=== PATIENT | male | born 1955 | race Caucasian/White ===

== ENCOUNTER 2024-12-23 13:39 | Outpatient (AMB) | payer MEDICARE, SELFPAY ==
--- NOTE | 2024-12-23 13:44 | A.SPINEOV_ITS ---
Vital Signs 12/23/24 13:51 Height 5 ft 10 in Weight 225 lb BMI 32.3 Intake Visit Reasons: Thorasic Web Intake Note: Mr. Arthur is here today c/o mid back pain and discomfort. Application Development Director Required: No Allergies morphine Allergy (Severe, Verified 12/23/24 13:53) Unknown LATEX Allergy (Unknown, Uncoded 09/11/19 00:00) itching Physical Exam Vital Signs: BMI result Body Mass Index 32.3 Assessment & Plan Assessment & Plan (1) Spinal arachnoid cyst: Code(s): G96.198 - Other disorders of meninges, not elsewhere classified Category: Medical (2) Neuroforaminal stenosis of lumbosacral spine: Code(s): M48.07 - Spinal stenosis, lumbosacral region Category: Medical Plan Dear colleague Thank you for referring Mj Arthur to the office today with a chief complaint of right thoracic pain and right leg pain and numbness. HPI: This 69-year-old active male comes in with a chief complaint of a pain that wraps around the right side of his chest at around T8. The pain started 8 months ago. Inspiration can make the pain worse. He has flare-ups. He takes Tylenol and gabapentin. He denies numbness in that area. No skin abnormalities. He denies neurological symptoms such as bladder or fecal incontinence, spastic gait, balance problems or sensory loss. He does have pain radiating down his right leg with walking and standing that improves with sitting. This pain is associated with numbness in the same distribution as the pain. The pain radiates down his lateral part of his thigh into the lateral part of the calf and ankle. He can develop a drop foot and trips with walking. He had back surgery approximately 17 years ago. He does not remember the procedure. He continues to receive epidural steroid injections in the lumbar spine without significant effect according to the patient. PMH: Hypertension, diabetes, AFib, Benito esophagus, sleep apnea. He underwent a heart ablation, right and left rotator cuff repair, right shoulder replacement and bilateral knee replacement Medications: [] Allergies: Morphine Social history: . 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 Denies smoking Physical Exam: Pleasant male. 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 No myelomalacia. The cord is deviated towards the left side. There is no nerve compression. The MRI of the lumbar spine shows right L5 foraminal stenosis. Impression/Plan: This patient is suffering from a thoracic radiculopathy without compression of the T8 nerve root on MRI. The spinal cord is deviated towards the right side due to an arachnoid cyst. It may be coincidental that the cyst is at the same never as the pain, in the other hand it may be causing the pain. However, without neurological deficits, I would not recommend a resection of the arachnoid cyst that carries the risk of neurological deficits and it may have nothing to do with the described pain. 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 I would like to obtain an CT of the lumbar spine to assess of surgery was performed in the past of this foramen. If not, then I would recommend a right L5 foraminotomy to address his unilateral neurogenic claudication symptoms. The patient will return after the CT is done. Thank you for allowing me to participate in your patients care. total time spent was 50 minutes in counseling ,coordination of plan, personal review of imaging, surgical decision making and subsequent plan Shiraz Coto MD, PhD Spine Fellowship Trained Neurosurgeon Director, [facility] Orders: Orders CT lumbar spine wo IV con Today M48.07 - Spinal stenosis, lumbosacral region, Z98.890 - Other specified postprocedural states Coding Level of Care Code New Pt Level 4 (29696) Diagnoses Spinal arachnoid cyst G96.198 Neuroforaminal stenosis of lumbosacral spine M48.07
[2024-12-23 13:51] VITALS: BMI 32.3
--- OUTSIDE RECORDS SUMMARY | 2024-12-23 14:31 | XMS_ITS | Clinical Summary ---
Author Organization [facility] Address [address] [place] [address] [address] [place] [address] Care Team Providers Care Contract Associate Name Role Phone Prabhjot Mcduffie MD Primary Care Provider Allergies Active Allergy Reactions Criticality Noted Date Comments Diphenhydramine 05/15/2022 Other reaction(s): confusion Latex Rash Low 05/15/2022 Lisinopril Cough 05/15/2022 Morphine Other 07/09/2022 Vomit Medications Blood Glucose Monitoring Suppl (FreeStyle glucose monitoring) kit one - Use device to check blood sugar 7 Active FreeStyle lancets daily. 7 Active glucose blood test strip daily. 7 Active ibuprofen 600 MG tablet 1 tablet in the morning and 1 tablet at noon and 1 tablet in the evening. Active metFORMIN XR (Glucophage-XR) 500 MG 24 hr tablet 1 tablet in the morning. Active amLODIPine (Norvasc) 5 MG tablet 1 tablet in the morning. 7 Active gabapentin (Neurontin) 300 MG capsule 1 capsule in the morning. Active pantoprazole (ProtoNix) 40 MG EC tablet 1 tablet in the morning. Active losartan (Cozaar) 100 MG tablet daily. Active glucose blood (FREESTYLE LITE) test strip USE TO test blood sugar ONCE A DAY directed Active glucose blood test strip one Test blood sugar once a day for 30 days 9 Active Lancet Devices (Autolet) lancing device Intradermal test blood sugar once a day for 30 days 9 Active METOPROLOL TARTRATE PO Metoprolol Tartrate Active Apixaban (ELIQUIS PO) Eliquis Active aspirin 81 MG chewable tablet 1 tablet in the morning. Active acetaminophen (Tylenol) 325 MG tablet Take 650 mg by mouth. 2 Active amLODIPine (Norvasc) 10 MG tablet Take 1 tablet by mouth in the morning. 2 Active atorvastatin (Lipitor) 20 MG tablet Take 20 mg by mouth. 0 Active celecoxib (CeleBREX) 200 MG capsule take 1 capsule by mouth once a day (MEDICATION TO BE STARTED ON 04/20/2022 2 Active Docusate Sodium (DSS) 100 MG capsule Take 1 capsule by mouth in the morning and at bedtime. Active gabapentin (Neurontin) 300 MG capsule Take 300 mg by mouth. 0 Active glipiZIDE (Glucotrol) 5 MG tablet Take 5 mg by mouth. 2 Active hydrALAZINE (Apresoline) 25 MG tablet hydralazine 25 mg tablet Active hydroCHLOROthia zide (HYDRODiuril) 25 MG tablet Take 1 tablet by mouth in the morning. 2 Active Active Problems Problem Noted Date Diagnosed Date Hypertension 05/15/2022 Benito esophagus 05/15/2022 Disorder of left rotator cuff 05/15/2022 Prostate nodule 05/15/2022 Erectile dysfunction 05/15/2022 Obesity 05/15/2022 DUNCAN (nonalcoholic steatohepatitis) 05/15/2022 Combined forms of age-related cataract of both e yes 05/15/2022 Type 2 diabetes mellitus without retinopathy 11/2021 Presbyopia of both eyes 05/15/2022 Social History Tobacco Use Types Packs/Day Years Used Date Smoking Tobacco: Former Cigarettes Q uit: 1996 Tobacco Cessation:Counseling Given: Not Answered Sex and Gender Information Value Date Recorded Sex Assigned at Male 04/09/2022 10:27 AM EDT Legal Sex Male 10:27 AM EDT Gender Identity Male 07/06/2022 8:32 AM EST Sexual Orientation Straight 07/06/2022 8: 34 AM EST Occupation Industry Job Start Date Job End Date [employer] Not on file Not on file Not on file Last Filed Vital Signs Vital Sign Reading Time Taken Comments Blood Pressure 134/72 11/18/2023 3:50 PM EDT Pulse - - Temperature 36.2 C (97.2 F) 11/18/2023 3:50 PM EDT Respiratory Rate - - Oxygen Saturation - - Inhaled Oxygen Concentration - - Weight - - Height - - Body Mass Index - - Plan of Treatment Health Maintenance Due Date Last Done Comments CT Colonography 1955 Depression Screening 1955 Diabetes: Hemoglobin A1C 1955 FIT DNA/Cologuard 1955 FIT 1955 FOBT 1955 Lipid Panel 1955 SDOH Screening 1955 Sigmoidoscopy 1955 Diabetes: Foot Exam 1965 Alcohol/Substance Use Screening 1967 Hepatitis C Screening 1973 Diabetes: Urine Protein Screening 1974 Zoster Vaccines (1 of 2) 2005 RSV Patients and Patients Aged 60 years or older (1 - Risk 60-74 years 1-dose series) 2015 Hepatitis A Vaccines (2 of 2 - Risk 2-dose series) 08/02/2016 01/31/2016 COVID-19 Vaccine ( season) 2024 06/16/2022, 04/21/2021, 09/07/2020, Additional history exists Influenza Vaccine (#1) 2025 , 03/13/2023, 03/13/2023, Additional history exists Tobacco Screening 04/17/2025 04/17/2024 Colonoscopy 08/16/2025 08/17/2015, 05/22/2005 Colorectal Cancer Screening 08/16/2025 Eye Exam 11/17/2025 11/18/2023, 11/08, 11/18/2023, Additional history exists DTaP/Tdap/Td Vaccines (3 - Td or Tdap) 09/05/2030 09/05/2020, 02/15/2012, 11/23/2004 Hepatitis B Vaccines Completed 07/06/2020, 03/09/2020, 02/03/2020, Additional history exists Pneumococcal Vaccine: 50+ Years Completed 03/25/2024, 07/28/2021, 06/24/2018 HIB Vaccines Aged Out No longer eligi ble based on patient's age to complete this topic HPV Vaccines Aged Out No longer eligi ble based on patient's age to complete this topic IPV Vaccines Aged Out No longer eligi ble based on patient's age to complete this topic Meningococcal B Vaccine Aged Out No l onger eligible based on patient's age to complete this topic Meningococcal Vaccine Aged Out No mary jo john eligible based on patient's age to complete this topic RSV under 20 months Aged Out No longe r eligible based on patient's age to complete this topic Rotavirus Vaccines Aged Out No longer eligible based on patient's age to complete this topic Procedures Procedure Name Priority Date/Time Associated Diagnosis Comments COLONOSCOPY Routine 08/17/2015 12:00 AM EST from Last 3 Months or Most Recently Relevant to Health Maintenance Results * COLONOSCOPY: [facility] (08/17/2015 12:00 AM EST) Anatomical Region Laterality Modality Endoscopy 08/17/2015 Narrative 08/17/2015 12:00 AM EST Refer to Fovea for result details Legacy Procedure: COLONOSCOPY: [facility] Procedure Note Provider, Bella, - 10/04/2022 Refer to Fovea for result details Legacy Procedure: COLONOSCOPY: [facility] Historical Provider ENDOSCOPY PROCEDURE ORDER PORTIA Final Result from Last 3 Months or Most Recently Relevant to Health Maintenance Insurance [employer] Member Subscriber Plan / Payer (Ef fective 2023-Present) Name:Mj Arthur Relation to Subscriber:Self Name:Mj Arthur Payer ID:Not on file Group ID:Not on file Type:Not on file Address: [address] [id number] [employer] [place] [phone] Care Teams Contract Associate Relationship Specialty Start Date End Date Prabhjot Mcduffie MD PCP - General Internal Medicine 05/28/22
--- OUTSIDE RECORDS SUMMARY | 2024-12-23 14:31 | XMS_ITS | Clinical Summary ---
Author Organization [facility] Address [address] [place] [phone] Phone Care Team Providers Care Sustainability Engineer Name Role Phone Horacio Mcduffie MD Primary Care Provider [phone] Allergies Active Allergy Reactions Criticality Noted Date Comments Diphenhydramine Hcl Other 07/05/2017 Confusion Latex Rash 06/24/2017 Lisinopril Cough 06/24/2017 Morphine Nausea And Vomiting 01/25/2022 Medications aluminum-magnesiu m hydroxide-simethi cone (MAALOX) 200-200-20 mg/5 mL suspension Take 15 mL by mouth 4 times daily as needed (heartburn, castro's esopahgus). 10/02/19 24 Active apixaban (ELIQUIS) 5 mg tablet Take 1 Tablet by mouth 2 times daily. Active famotidine (PEPCID) 20 mg tablet Take 1 Tablet by mouth 2 times daily as needed for Heartburn. 10/02/19 24 Active melatonin 10 mg tablet Take by mouth. Active methocarbamoL (ROBAXIN) 750 mg tablet TAKE ONE TABLET BY MOUTH THREE TIMES A DAY DIRECTED FOR 7 DAYS 08/23/19 24 Active lancets 30 gauge misc 1 Stick by Does not apply route daily. 09/12/19 24 Active blood sugar diagnostic (OneTouch Verio test strips) test strip Apply 1 strip topically to test fasting blood sugar once daily 09/12/19 24 Active blood-glucose meter (ONETOUCH VERIO METER MISC) 1 Kit by Does not apply route daily. Use to test fsbs once a day 08/15/19 23 Active blood-glucose meter kit Use as directed to test fsbs once daily. 02/18/20 19 Active fluticasone propionate (FLONASE) 50 mcg/actuation nasal sprayIndications: RUQ abdominal pain,Subacute cough Administer 2 sprays into each nostril 1 (one) time each day. Shake gently. Before first use, prime pump. After use, clean tip and replace cap. 16 g 5 07/01/19 25 2025 Active albuterol HFA (ProAir HFA) 90 mcg/actuation inhalerIndication s:RUQ abdominal pain,Subacute cough Inhale 2 puffs by mouth every 4 (four) hours if needed for wheezing or shortness of breath. 18 g 11 07/01/19 25 2025 Active losartan (COZAAR) 100 mg tablet TAKE ONE TABLET BY MOUTH EVERY DAY 90 tablet 1 07/06/19 25 Active gabapentin (NEURONTIN) 600 mg tablet Take 1 tablet (600 mg total) by mouth 2 (two) times a day. 180 each 08/05/19 25 2024 Active glipiZIDE (GLUCOTROL) 5 mg tablet TAKE ONE TABLET BY MOUTH EVERY DAY 90 tablet 1 09/12/19 25 Active amLODIPine (NORVASC) 10 mg tablet Take 1 tablet (10 mg total) by mouth 1 (one) time each day. 90 tablet 1 09/12/19 25 Active metFORMIN XR (GLUCOPHAGE-XR) 500 mg 24 hr tablet Take 4 tablets (2,000 mg total) by mouth 1 (one) time each day. 360 tablet 10/03/19 25 Active atorvastatin (LIPITOR) 20 mg tablet TAKE ONE TABLET BY MOUTH EVERY DAY 90 tablet 1 12/02/19 25 Active spironolactone (ALDACTONE) 25 mg tablet TAKE ONE TABLET BY MOUTH EVERY DAY 90 tablet 1 12/02/19 25 Active metoprolol succinate (TOPROL-XL) 50 mg 24 hr tablet TAKE TWO TABLETS BY MOUTH EVERY DAY 180 tablet 12/02/19 25 Active hydroCHLOROthiazi de (HYDRODIURIL) 25 mg tabletIndications :Primary hypertension TAKE ONE TABLET BY MOUTH EVERY DAY 90 tablet 1 12/02/19 25 Active pantoprazole (PROTONIX) 40 mg EC tablet TAKE ONE TABLET BY MOUTH TWICE A DAY ; DO NOT CRUSH, CHEW, OR SPLIT 180 tablet 12/05/19 25 Active benzonatate (TESSALON) 100 mg capsule TAKE ONE CAPSULE BY MOUTH THREE TIMES A DAY NEEDED FOR COUGH ; DO NOT CRUSH OR CHEW 20 capsule 12/22/19 25 Active ondansetron ODT (ZOFRAN-ODT) 4 mg disintegrating tabletIndications :Nausea Dissolve 1 tablet (4 mg total) on top of the tongue every 8 (eight) hours if needed for nausea or vomiting. 30 tablet 2 12/23/19 25 Active pantoprazole (PROTONIX) 40 mg EC tablet TAKE ONE TABLET BY MOUTH TWICE A DAY ; DO NOT CRUSH, CHEW, OR SPLIT 180 tablet 09/03/19 25 2024 Discontinued atorvastatin (LIPITOR) 20 mg tablet TAKE ONE TABLET BY MOUTH EVERY DAY 90 tablet 09/09/19 25 2024 Discontinued spironolactone (ALDACTONE) 25 mg tablet TAKE ONE TABLET BY MOUTH EVERY DAY 90 tablet 09/09/19 25 2024 Discontinued metoprolol succinate (TOPROL-XL) 50 mg 24 hr tablet TAKE TWO TABLETS BY MOUTH EVERY DAY 180 tablet 09/09/19 25 2024 Discontinued hydroCHLOROthiazi de (HYDRODIURIL) 25 mg tabletIndications :Primary hypertension Take 2 tablets (50 mg total) by mouth 1 (one) time each day. 180 each 09/11/19 25 2024 Discontinued benzonatate (TESSALON) 100 mg capsule Take 1 capsule (100 mg total) by mouth 3 (three) times a day if needed for cough. Do not crush or chew. 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), type 2 with neurological complications (CMS/HCC V24, CMS/HCC V28) 05/04/2024 Hypertension 05/04/2024 Lumbar herniated disc 05/04/2024 Overview (05/04/2024): left sided S/P TKR (total knee replacement) 05/20/2022 Overview (05/04/2024): right Paroxysmal atrial fibrillation (CMS/HCC V24, CMS /HCC V28) 05/04/2020 Overview (05/04/2024): [place] Hypercholesteremia 04/07/2020 Obstructive sleep apnea 07/15/2018 Overview (05/04/2024): SMS Home Polysomnogram: Date 07/12/2018; AHI 61, Unclassified apneas 0; Obstructive apneas 132; Central apneas 1; Mixed apneas 0; hypopneas 122; average oxygen saturation 90% (lowest 77% with saturations <88% for 5% or more of study) RBMG Polysomnogram treatment study. Date 08/24/2018. SE 76 % SM 80 %; spent 27 % of the study in REM. On CPAP @ 10; RDI 2 (AHI 1), Central apneas 0; Obstructive apneas 0; Mixed apneas 0; hypopneas 1; RERAs 1; and, average oxygen saturation was 91%. For the entire study, PLMs ~7. - Obstructive Sleep Apnea - severe; mostly obstructive apneas and hypopneas; with sleep related hypoventilation by 2019 home polysomnogram. - 08/24/2018 Pre-study ESS 9. 3/4 RLS symptoms. - CPAP @ 10 corrective. 08/30. Inspire Obesity (BMI 30.0-34.9) 06/24/2018 DM (diabetes mellitus), type 2 with peripheral vascular complications ([facility] V24, [facility] V28) 07/05/2017 DM (diabetes mellitus), type 2 with renal complications ([facility] V24, [facility] V28) 07/05/2017 Erectile dysfunction 07/05/2017 Fatty liver 07/05/2017 Microalbuminuria 07/05/2017 DUNCAN (nonalcoholic steatohepatitis) 07/05/2017 Renal cyst 07/05/2017 Overview (05/04/2024): Left [address] 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 Polyp of colon 06/24/2017 Encounters Date Type Department Care Team Description 12/15/2024 7:39 AM EDT Anesthesia Event [facility] Endoscopy [address] [place] [phone] Marco Humphrey MD 12/15/2024 6:47 AM EDT - 12/15/2024 11:59 PM EDT Hospital Encounter [facility] Endoscopy [address] [place] [phone] Emile Kirby MD Burton, Heather, CRNA Gomes, Sheldon B, MD Castro's esophagus without dysplasia Discharge Disposition: Home or Self Care 12/08/2024 9:00 AM EDT Office Visit Pulmonology [facility] [address] [phone] Amanda Hemphill MD Lung nodule (Primary Dx) 12/04/2024 1:21 PM EDT - 12/04/2024 11:59 PM EDT Hospital Encounter [facility] CT Scan [address] [place] [phone] Lung nodule Discharge Disposition: Home or Self Care 12/01/2024 Telephone Adult Medicine [facility] [address] [place] [phone] Horacio Mcduffie MD Referral 11/26/2024 Telephone Pulmonology [facility] [address] [phone] Zaina Mendez MS 11/25/2024 9:00 AM EDT Office Visit Adult Medicine [facility] [address] [place] [phone] Annalise Carvajal NP Lumbar herniated disc (Primary Dx) 11/25/2024 Telephone Adult Medicine [facility] [address] [place] [address] Horacio Mcduffie MD Forms/questionnaires ([facility] placard form/) 11/19/2024 4:00 PM EDT Office Visit Nephrology [address] [phone] Maximiliano Hua MD Hypertension, unspecified type (Primary Dx); DM (diabetes mellitus), type 2 with peripheral vascular complications (CMS/HCC V24, CMS/HCC V28); Obstructive sleep apnea 11/18/2024 Telephone Gastroenterology [facility] 175 [facility] 175 [facility] [address] [place] [address] Sandra Saleem LPN Anticoagulation (Upper endoscopy on 12/15/[address] Kirby) 11/17/2024 Telephone Adult [facility] [address] [place] [phone] Horacio Mcduffie MD Referral (Nephrology) 10/28/2024 Telephone Adult [facility] [address] [place] [phone] Horacio Mcduffie MD Referral 10/06/2024 1:30 PM EDT Office Visit Pulmonology [facility] 299 [facility] [address] [place] [address] Amanda Hemphill MD Lung nodule (Primary Dx); Other emphysema (CMS/HCC V24, CMS/HCC V28); SOB (shortness of breath) 10/05/2024 Telephone Pulmonology [facility] 299 [facility] [address] [place] [address] Zaina Mendez MS 09/30/2024 8:15 AM EDT - 09/30/2024 10:15 AM EDT Surgery [address] [phone] Amanda Hemphill MD ROBOTIC ASSISTED BRONCHOSCOPY W. FNA, TBBX, BRUSH, BAL [42464 (CPT )] 09/30/2024 8:15 AM EDT Anesthesia Event [address] [phone] Gita Silvestre MD 09/30/2024 5:36 AM EDT - 09/30/2024 11:35 AM EDT Hospital Encounter [address] [phone] Amanda Hemphill MD Pain; Lung nodule Discharge Disposition: Home or Self Care from Last 3 Months Immunizations Name Administration Dates Next Due Hepatitis B (Ngkgzfu-G-Gomab , Recombivax HB-Adult) 19yo and older 07/06/2020,03/09/2020,02/03/2020 Hepatitis B (Recombivax HB-D ialysis) 18yo and older 03/05/2016 Influenza Quadravalent, MDCK , 0.5ml, preservative free (Flucelvax) 6mo and older 06/15/2019 Influenza trivalent, 0.5mL ( Fluad) 65yo and older 03/25/2024,03/13/2023,04/10/2022,04/07 Influenza trivalent, 0.5mL, preservative free (Fluarix; FluLaval; Fluzone) ages 6mo and older (Afluria) 3 years and older 02/23/2016 Pfizer (ages 12 & older) Biv alent, COVID-19 06/16/2022 Pfizer SARS-CoV-2 COVID-19, mRNA, LNP-S, preservative free 04/21/2021 Pneumococcal conjugate 13 va lent (Prevnar 13, PCV13) 2mo and older 07/28/2021 Pneumococcal conjugate 20 va lent (Prevnar 20, PCV 20) 2mo and older 03/25/2024 Pneumococcal polysaccharide 23 valent (Pneumovax 23) 2yo and older 06/24/2018 Tdap Tetanus diptheria acell ular pertussis (Boostrix; Adacel) 7yo and older 09/05/2020,02/15/2012 Surgical History Surgery Date Site/Laterality Comments ROTATOR CUFF REPAIR 11/2014 PROCEDURE: HISTORICAL ROTATOR CUFF REPAIR; COMMENT: left and right KNEE SURGERY PROCEDURE: HISTORICAL KNEE SURGERY; COMMENT: left meniscectomy OTHER SURGICAL HISTORY PROCEDURE: ---- OTHER ----; COMMENT: historical ?esophageal fundoplication for barretts esophagus COLONOSCOPY 08/17/2015 PROCEDURE: HISTORICAL COLONOSCOPY; COMMENT: Diverticulosis. Repeat 10 yrs UPPER GASTROINTESTINAL ENDOSCOPY PROCEDURE: UPPER GI ENDOSCOPY/EXAM; COMMENT: 2008, 2011, 2013 Castro's Esophagus COLONOSCOPY 05/21/2005 PROCEDURE: HISTORICAL COLONOSCOPY OTHER SURGICAL HISTORY 06/2020 PROCEDURE: ---- OTHER ----; COMMENT: right L5/S1 foraminal decompression via full facetectomy TOTAL KNEE ARTHROPLASTY 05/2023 Bilateral PROCEDURE: HISTORICAL TOTAL KNEE REPLACE ESOPHAGOGASTRODUODENOSCOPY JOINT REPLACEMENT ABLATION OF DYSRHYTHMIC FOCUS for afib per pt OTHER SURGICAL HISTORY Right Inspire implant for sleep apnea LUMBAR DISC SURGERY L4-5 Medical History Medical History Date Comments Hypertension DX:Hypertension Lumbar herniated disc DX:Lumbar herniated disc; COMMENT: left sided History of alcohol abuse 06/24/2017 DX:Hist ory of alcohol abuse; COMMENT: Quit 1994 Erectile dysfunction 07/05/2017 DX:Erectile dysfunction Microalbuminuria 07/05/2017 DX:Microalbumin uria Peripheral neuropathy 07/05/2017 DX:Periphe ral neuropathy DM (diabetes mellitus), type 2 with neurological complications (CMS/HCC V24, CMS/HCC V28) DX:DM (diabetes mellitus), t ype 2 with neurological complications (HCC) Insomnia 07/05/2017 DX:Insomnia DUNCAN (nonalcoholic steatohepatitis) 07/05/2017 DX:DUNCAN (nonalcoholic steatohepatitis) Prostate nodule 07/05/2017 DX:Prostate nodu le DM (diabetes mellitus), type 2 with peripheral vascular complications (CMS/HCC V24, CMS/HCC V28) 07/05/2017 DX:DM (diabetes mellitus), type 2 with peripheral vascular complications (HCC) Fatty liver 07/05/2017 DX:Fatty liver Renal cyst 07/05/2017 DX:Renal cyst; C OMMENT: Left [address] Diverticulosis 07/05/2017 DX:Diverticulosi s Osteoarthritis 07/05/2017 DX:Osteoarthriti s; COMMENT: Spine, shoulder, knee Hearing loss 07/05/2017 DX:Hearing loss Hiatal hernia 07/05/2017 DX:Hiatal hernia Polyp of colon 06/24/2017 DX:Polyp of colo n 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 DX: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), type 2 with renal complications (CMS/HCC V24, CMS/HCC V28) 07/05/2017 DX:DM (diabetes mellitus), t ype 2 with renal complications (HCC) Castro's esophagus DX:Castro's esophagus ANISHA (obstructive sleep apnea) DX :ANISHA (obstructive sleep apnea) H/O cardiac radiofrequency ablation DX:H/O cardiac radiofrequency ablation; COMMENT: feb 2021 Hyperlipidemia DX:Hyperlipidemi a Hiatal hernia DX:Hiatal hernia Arrhythmia Full dentures Need for prophylactic antibiotic R/t joint replacement Family History Medical History Relation Name Comments Alcohol abuse Brother 1 Other: afib Brother 2 No Known Problems Daughter 1 No Known Problems Daughter 2 Diabetes Father CHF, alcoholism Lung cancer Mother smoker Alcohol abuse Sister 1 uterine cancer , breast cancer Alcohol abuse Sister 2 uterine cancer Alcohol abuse Sister 3 uterine cancer No Known Problems Son 1 No Known Problems Son 2 Relation Name Status Comments Brother 1 Alive Brother 2 Alive Daughter 1 Alive Daughter 2 Alive Father Mother Sister 1 Alive Sister 2 Sister 3 Son 1 Alive Son 2 Alive Social History Tobacco Use Types Packs/Day Years Used Date Smoking Tobacco: Former Cigarettes Q uit: 06/24/1994 Smokeless Tobacco: Never Tobacco Cessation:Counseling Given: Not Answered Alcohol Use Standard Drinks/Week Comments No 0 (1 standard drink = 0.6 oz pur e alcohol) Interpersonal Safety Answer Date Record ed Physical Abuse 12/15/2024 Verbal Abuse 12/15/2024 Sex and Gender Information Value Date Recorded Sex Assigned at Male 07/27/2024 2:14 PM EST Legal Sex Male 2:06 AM EST Gender Identity Male 07/27/2024 2:14 PM EST Sexual Orientation Straight 08/21/2024 12 :07 PM EDT Obstetrics History Last Filed Vital Signs Vital Sign Reading Time Taken Comments Blood Pressure 105/71 12/15/2024 8:16 AM EDT Pulse 49 12/15/2024 8:16 AM EDT Temperature 36.3 C (97.4 F) 12/15/2024 7:56 AM EDT Respiratory Rate 18 12/15/2024 8:16 AM EDT Oxygen Saturation 99% 12/15/2024 8:16 AM EDT Inhaled Oxygen Concentration - - Weight 104 kg (230 lb) 12/15/2024 7:04 AM EDT Height 177.8 cm (5' 10 ) 12/15/2024 7:04 AM EDT Body Mass Index 33 12/15/2024 7:04 AM EDT Plan of Treatment Upcoming Encounters Date Type Department Care Team (Late st Contact Info) Description 02/25/2025 3:00 PM EDT Office Visit Adult Medicine - [address] [phone] Annalise Carvajal NP [address] [place] [address] Health Maintenance Due Date Last Done Comments Diabetes: Annual Retina Eye Exam 1965 Zoster Vaccines (1 of 2) 1974 RSV Immunization Adult Patients (1 - Risk 60-74 years 1-dose series) 2015 Abdominal Aortic Aneurysm (AAA) Screen 05/19/2022 Depression Screening 05/19/2022 Medicare Annual Wellness Visit 05/19/2022 Social Influencers of Health Screening 05/19/2022 COVID-19 Vaccine ( season) 2024 06/16/2022, 04/21/2021, 09/07/2020, Additional history exists Diabetes: Blood Sugar Control Test (HGBA1C) 09/10/2024 03/12/2024, 03/12/2024 Influenza Vaccine (#1) 2025 , 03/13/2023, 06/16/2022, Additional history exists Diabetes: Annual Urine Albumin-Creatinine Ratio (uACR) 03/12/2025 03/12/2024 Diabetes: Annual Foot Exam 03/25/2025 03/25/2024 Colorectal Cancer Screening: Colonoscopy 08/16/2025 08/17/2015, 08/17/2015 Diabetes: Annual GFR (Glomerular Filtration Rate) 09/24/2025 09/24/2024, 07/01/2024, 03/12/2024, Additional history exists Hypertension/CHF/CAD Annual BMP Blood Test 09/24/2025 09/24/2024, 07/01/2024, 03/12/2024, Additional history exists Falls Risk Assessment 12/15/2025 12/15/2024 Cholesterol Screening (Lipid Panel) 03/12/2029 03/12/2024, 03/12/2024 DTaP,Tdap,and Td Vaccines (3 - Td or Tdap) 09/05/2030 09/05/2020, 02/15/2012 Hepatitis B Vaccines Completed 07/06/2020, 03/09/2020, 02/03/2020, Additional history exists Pneumococcal Vaccine: 50+ Years Completed 03/25/2024, 07/28/2021, 06/24/2018 Hepatitis C Screening Completed 07/15/2024, 020 HIB Vaccines Aged Out No longer eligi ble based on patient's age to complete this topic HPV Vaccines Aged Out No longer eligi ble based on patient's age to complete this topic Hepatitis A Vaccines Aged Out No long er eligible based on patient's age to complete this topic IPV Vaccines Aged Out No longer eligi ble based on patient's age to complete this topic MMR Vaccines Aged Out No longer eligi ble based on patient's age to complete this topic Meningococcal ACWY Vaccine Aged Out N o longer eligible based on patient's age to complete this topic Meningococcal B Vaccine Aged Out No l onger eligible based on patient's age to complete this topic RSV Immunization Patients Under 20 months Aged Out No longer eligible based on patient's age to complete this topic Varicella Vaccines Aged Out No longer eligible based on patient's age to complete this topic Medical Devices Implanted Type Area Windsmith Device Identifier Shelf Expiration Date Model / Serial / Lot Marker Cobra Chrislock - Sn/A - [id number] Implanted:Qt y: 1 on 09/30/2024 by Amadna Hemphill MD at [facility] Imaging Implants Left: Lung [employer]IEN SUPER[employer] [id number] 08/06/2028 [id number] / N/A / [id number] Description:LLL Implants Implants Right: Chest Wall inspired sleep apnea device Description:Implanted device for sleep apnea Joints Knee Joints Knee Bilateral: Knee Joints Shoulder Joints Shoulder Right: Shoulder Procedures Procedure Name Priority Date/Time Associated Diagnosis Comments EGD Routine 12/15/2024 7:55 AM EDT Castro's esophagus without dysplasia TISSUE EXAM Routine 12/15/2024 7:48 AM EDT Castro's esophagus without dysplasia CT CHEST WO CONTRAST Routine 12/04/2024 1:43 PM EDT Lung nodule MR THORACIC SPINE WO AND W CONTRAST Routine 12/01/2024 8:51 AM EDT XR CHEST 1 VIEW STAT 09/30/2024 10:47 AM EDT POCT GLUCOSE BLOOD Routine 09/30/2024 10:45 AM EDT OXYGEN THERAPY, ADULT Routine 09/30/2024 10:03 AM EDT XR FLUORO UP TO 1 HOUR (STATISTICS)(NO REPORT) Routine 09/30/2024 9:38 AM EDT Pain TISSUE EXAM Routine 09/30/2024 8:38 AM EDT Lung nodule NON-GYNECOLOGIC CYTOLOGY Routine 09/30/2024 8:34 AM EDT Lung nodule WY BRONCHOSCOPY INCL FLUROSCOPIC GUIDANCE W PLCMNT FIDUCIAL MARKER SGL/MULT 09/30/2024 8:03 AM EDT Lung nodule Case Notes Inspire implant right sideROBOTIC ASSISTED BRONCHOSCOPY W. FNA, TBBX, BRUSH, BAL [03411 (CPT )] Bilateral LENGTH OF PROCEDURE 90 MINUTES RADIAL EBUS [09989 (CPT )] Bilateral LINEAR EBUS TBNA W. FLUOROSCOPY [81824 (CPT )] Bilateral FIDUCIAL MARKER PLACEMENT [47901 (CPT )] WY BRONCHOSCOPY RIGID/FLEXIBLE W/EBUS >=3 MEDIASTINAL/HILAR LYMPH NODES 09/30/2024 8:03 AM EDT Lung nodule Case Notes Inspire implant right sideROBOTIC ASSISTED BRONCHOSCOPY W. FNA, TBBX, BRUSH, BAL [42587 (CPT )] Bilateral LENGTH OF PROCEDURE 90 MINUTES RADIAL EBUS [21742 (CPT )] Bilateral LINEAR EBUS TBNA W. FLUOROSCOPY [92822 (CPT )] Bilateral FIDUCIAL MARKER PLACEMENT [87316 (CPT )] WY BRONCHOSCOPY RIGID/FLEXIBLE W/TRANSBRONCHIAL LUNG BIOPSY(S) SINGLE LOBE 09/30/2024 8:03 AM EDT Lung nodule Case Notes Inspire implant right sideROBOTIC ASSISTED BRONCHOSCOPY W. FNA, TBBX, BRUSH, BAL [42496 (CPT )] Bilateral LENGTH OF PROCEDURE 90 MINUTES RADIAL EBUS [26591 (CPT )] Bilateral LINEAR EBUS TBNA W. FLUOROSCOPY [11249 (CPT )] Bilateral FIDUCIAL MARKER PLACEMENT [10829 (CPT )] WY BRONCHOSCOPY RIGID/FLEXIBLE COMPUTER ASSISTED IMAGE GUIDED NAVIGATION 09/30/2024 8:03 AM EDT Lung nodule Case Notes Inspire implant right sideROBOTIC ASSISTED BRONCHOSCOPY W. FNA, TBBX, BRUSH, BAL [89059 (CPT )] Bilateral LENGTH OF PROCEDURE 90 MINUTES RADIAL EBUS [07938 (CPT )] Bilateral LINEAR EBUS TBNA W. FLUOROSCOPY [04834 (CPT )] Bilateral FIDUCIAL MARKER PLACEMENT [94014 (CPT )] POCT GLUCOSE BLOOD Routine 09/30/2024 6: 33 AM EDT CBC WITH AUTO DIFFERENTIAL Routine 09/24/2024 9:27 AM EDT Lung nodule Other emphysema (CMS/HCC V24, CMS/HCC V28) CBC AND DIFFERENTIAL Routine 09/24/2024 9:27 AM EDT Lung nodule Other emphysema (CMS/HCC V24, CMS/HCC V28) BASIC METABOLIC PANEL Routine 09/24/2024 9:27 AM EDT Lung nodule Other emphysema (CMS/HCC V24, CMS/HCC V28) PROTHROMBIN TIME WITH INR Routine 09/24/2024 9:27 AM EDT Lung nodule Other emphysema (CMS/HCC V24, CMS/HCC V28) SOB (shortness of breath) HEPATITIS C ANTIBODY Routine 07/15/2024 9:45 AM EST Subacute cough RUQ abdominal pain Intercostal pain Transaminitis DIABETES FOOT EXAM Routine 03/25/2024 URINE ALBUMIN CREATININE RATIO Routine 03/12/2024 HEMOGLOBIN A1C Routine 03/12/2024 LIPID PANEL Routine 03/12/2024 COLONOSCOPY Routine 08/17/2015 from Last 3 Months or Most Recently Relevant to Health Maintenance Results * EGD Anesthesia - MAC; [facility] ENDOSCOPY (12/15/2024 7:55 AM EDT) Anatomical Region Laterality Modality Endoscopy 12/15/2024 7:40 AM EDT Impressions 12/15/2024 7:56 AM EDT - Normal examined duodenum. - Normal stomach. 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 Biopsied. Recommendation: - Discharge patient to home. - Await pathology results. - Return to GI clinic after studies are complete. Narrative 12/15/2024 7:56 AM EDT [facility] GI Patient Name: Micaela Choudhury Procedure Date: 12/15/2024 7:40 AM Date of : 1955 Age: 69 Gender: Male Note Status: Finalized Attending MD: Emile Kirby MD, Procedure Date No Time: 12/15/2024 Procedure: Upper GI endoscopy Indications: Surveillance for malignancy due to personal history of Castro's esophagus, Castro's low grade dysplasia Providers: Emile Kirby MD Referring MD: Emile Kirby MD Medicines: Monitored Anesthesia Care Complications: No immediate complications. Estimated blood loss: Minimal. Estimated Blood Loss: Estimated blood loss was minimal. Procedure: Pre-Anesthesia Assessment: - Prior to the procedure, a History and Physical was performed, and patient medications and allergies were reviewed. The patient is competent. The risks and benefits of the procedure and the sedation options and risks were discussed with the patient. All questions were answered and informed consent was obtained. Patient identification and proposed procedure were verified by the physician, the nurse, the fishing captain and the quality assurance qa lab technician in the pre-procedure area in the endoscopy suite. Mental Status Examination: alert and oriented. Airway Examination: normal oropharyngeal airway and neck mobility. Respiratory Examination: clear to auscultation. CV Examination: normal. Prophylactic Antibiotics: The patient does not require prophylactic antibiotics. Prior Anticoagulants: The patient has taken Eliquis (apixaban), last dose was 3 days prior to procedure. ASA Grade Assessment: III - A patient with severe systemic disease. After reviewing the risks and benefits, the patient was deemed in satisfactory condition to undergo the procedure. The anesthesia plan was to use monitored anesthesia care (MAC). Immediately prior to administration of medications, the patient was re-assessed for adequacy to receive sedatives. The heart rate, respiratory rate, oxygen saturations, blood pressure, adequacy of pulmonary ventilation, and response to care were monitored throughout the procedure. The physical status of the patient was re-assessed after the procedure. After obtaining informed consent, the endoscope was passed under direct vision. Throughout the procedure, the patient's blood pressure, pulse, and oxygen saturations were monitored continuously. The Endoscope was introduced through the mouth, and advanced to the second part of duodenum. The upper GI endoscopy was accomplished without difficulty. The patient tolerated the procedure well. Findings: The examined duodenum was normal. The stomach was normal. The esophagus and gastroesophageal junction were examined with white light and narrow band imaging (NBI). There were esophageal mucosal changes secondary to established short-segment Castro's disease. These changes involved the mucosa at the upper extent of the gastric folds (38 cm from the incisors) extending to the Z-line (37 cm from the incisors). One tongue of salmon-colored mucosa was present from 37 to 38 cm. The maximum longitudinal extent of these esophageal mucosal changes was 1 cm in length. Mucosa was biopsied with a cold forceps for histology. One specimen bottle was sent to pathology. Estimated blood loss was minimal. 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 All rights reserved. The codes documented in this report are preliminary and upon geneticist review may be revised to meet current compliance requirements. Emile Kirby MD 12/15/2024 7:56:25 AM This report has been signed electronically.Emile Kirby MD Number of Addenda: 0 Note Initiated On: 12/15/2024 7:40 AM Scope In: Scope Out: Endoscopy Department at [facility] - [address] [place] [id number] Procedure Note Emile Kirby MD - 12/15/2024 [facility] GI Patient Name: Micaela Choudhury Procedure Date: 12/15/2024 7:40 AM Date of : 1955 Age: 69 Gender: Male Note Status: Finalized Attending MD: Emile Kirby MD, Procedure Date No Time: 12/15/2024 Procedure: Upper GI endoscopy Indications: Surveillance for malignancy due to personal historyof Castro's esophagus, Castro's low gradedysplasia Providers: Emile Kirby MD Referring MD: Emile Kirby MD Medicines: Monitored Anesthesia Care Complications: No immediate complications. Estimated blood loss: Minimal. Estimated Blood Loss: Estimated blood loss was minimal. Procedure: Pre-Anesthesia Assessment: - Prior to the procedure, a History and Physicalwas performed, and patient medications and allergieswere reviewed. The patient is competent. The risks and benefits of the procedure and the sedation optionsand risks were discussed with the patient. Allquestions were answered and informed consent was obtained. Patient identification and proposed procedure were verified by the physician, the nurse, theanesthetist and the quality assurance qa lab technician in the pre-procedure area in the endoscopy suite. Mental Status Examination: alertand oriented. Airway Examination: normal oropharyngeal airway and neck mobility. Respiratory Examination: clear to auscultation. CV Examination: normal. Prophylactic Antibiotics: The patient does notrequire prophylactic antibiotics. Prior Anticoagulants: The patient has taken Eliquis (apixaban), last dose was3 days prior to procedure. ASA Grade Assessment: III- A patient with severe systemic disease. Afterreviewing the risks and benefits, the patient was deemed in satisfactory condition to undergo the procedure.The anesthesia plan was to use monitored anesthesiacare (MAC). Immediately prior to administration of medications, the patient was re-assessed foradequacy to receive sedatives. The heart rate, respiratory rate, oxygen saturations, blood pressure, adequacyof pulmonary ventilation, and response to care were monitored throughout the procedure. The physical status of the patient was re-assessed after the procedure. After obtaining informed consent, the endoscope was passed under direct vision. Throughout theprocedure, the patient's blood pressure, pulse, and oxygen saturations were monitored continuously. TheEndoscope was introduced through the mouth, and advanced tothe second part of duodenum. The upper GI endoscopy was accomplished without difficulty. The patienttolerated the procedure well. Findings: The examined duodenum was normal. The stomach was normal. The esophagus and gastroesophageal junction were examined with white light and narrow band imaging (NBI). There were esophageal mucosal changessecondary to established short-segment Castro's disease.These changes involved the mucosa at the upper extent ofthe gastric folds (38 cm from the incisors) extendingto the Z-line (37 cm from the incisors). One tongue of salmon-colored mucosa was present from 37 to 38 cm. The maximum longitudinal extent of these esophageal mucosal changes was 1 cm in length. Mucosa was biopsied with a cold forceps for histology. One specimen bottle was sent to pathology. Estimatedblood loss was minimal. 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 All rights reserved. The codes documented in this report are preliminary and upon geneticist reviewmay be revised to meet current compliance requirements. Emile Kirby MD 12/15/2024 7:56:25 AM This report has been signed electronically.Emile Kirby MD Number of Addenda: 0 Note Initiated On: 12/15/2024 7:40 AM Scope In: Scope Out: Endoscopy Department at [address] [id number] IMPRESSION: - Normal examined duodenum. - Normal stomach. - Esophageal mucosal changes secondary toestablished short-segment Castro's disease. Biopsied. Recommendation: - Discharge patient to home. - Await pathology results. - Return to GI clinic after studies are complete. us Emile Kirby MD GI~PROCEDURE ORDERABLES Fin al Result * Tissue exam (12/15/2024 7:48 AM EDT) Only the most recent of2 resultswithin the time period is included. Final Diagnosis Lower esophagus, biopsy: - Esophageal squamous mucosa with scattered intraepithelial eosinophils (maximum of three intraepithelial eosinophils in a high-power field and reactive epithelial changes including spongiosis and focal basal hyperplasia. - Gastric cardiac type mucosa with patchy chronic inflammation. - No intestinal metaplasia and no dysplasia identified. 12/16/2024 11:20 AM EDT [facility] Gross Description A. Esophagus, lower biopsies: Labeled esophagus, lower . Received in formalin are six irregular pink-white to red mucosal tissue fragments, ranging from 0.2 cm to 0.5 cm in greatest dimension, which are wrapped in paper and submitted in toto in one cassette, six pieces, multiple levels on one slide. VALERY 12/16/2024 11:20 AM EDT [facility] Disclaimer Unless otherwise specified, all tissue is 10% NB formalin fixed and paraffin embedded. 12/16/2024 11:20 AM EDT [facility] Tissue Esophageal structure / Unknown 12/15/2024 7:48 AM EDT 12/15/2024 9:46 AM EDT us Emile Kirby MD LAB PATHOLOGY ORDERABLES Fi nal Result [facility] [address] [place] [address], * CT Chest wo Contrast (12/04/2024 1:43 PM EDT) Anatomical Region Laterality Modality Body Computed Tomogra phy 12/07/2024 10:0 0 AM EDT Impressions 12/07/2024 10:14 AM EDT Impression: 1. No significant change in the 9 x 15 mm juxtapleural nodular opacity being followed at the left lung base. An additional follow-up CT is recommended in 6 months. 2. No developing thoracic lymphadenopathy[place] ([id number]) -------- FINAL REPORT -------- Dictated By: Maria Teresa Matthew Dictated Date: 12/07/2024 10:00 ET Assigned Physician: Maria Teresa Matthew Reviewed and Electronically Signed By: Maria Teresa Matthew Signed Date: 12/07/2024 10:14 ET Workstation ID: [id number] Transcribed By: Self Edit Transcribed Date: 12/07/2024 10:00 ET Narrative 12/07/2024 10:14 AM EDT History: Lung nodule, greater than 8 mm. Comparison: 07/29/24, PET/CT 08/27/24 Technique: Helical volumetric imaging of the thorax was performed without IV contrast. DLP: 629.33 mGy/cm [employer] Iterative reconstruction technique Findings: The poorly defined, nodular opacity being followed at the base of the left lower lobe has not significantly changed (images 199 through 213 series 3), measuring approximately 9 x 15 mm in maximum axial dimensions. Rare sub-5 mm nodules elsewhere in the lungs are also unchanged. No new nodule is seen. A new metallic structure suggesting a fiducial marker is seen in the posterior left lower lobe, proximal to the nodule of concern. The trachea and central bronchial tree remain patent. Centrilobular and paraseptal emphysema are again noted. Subpleural reticular opacity is again seen bilaterally, compatible with fibrosis. No pleural or pericardial effusions are identified. Mild multichamber cardiomegaly is again seen. Moderate coronary artery calcification is noted. Mild mediastinal lymphadenopathy is without significant change, with nodes measuring up to 13 mm short axis. A small portion of the upper abdomen included on the lowest images through the thorax is remarkable for diffusely diminished hepatic attenuation consistent with fatty infiltration (partially imaged). A left renal cortical cyst is again seen. A neurostimulator device is again seen in the right anterior upper chest. A right total shoulder prosthesis is again noted. Procedure Note Maria Teresa Matthew MD - 12/07/2024 History: Lung nodule, greater than 8 mm. Comparison: 07/29/24, PET/CT 08/27/24 Technique: Helical volumetric imaging of the thorax was performed withoutIV contrast. DLP: 629.33 mGy/cm [employer] Iterative reconstruction technique Findings: The poorly defined, nodular opacity being followed at the base of the leftlower lobe has not significantly changed (images 199 through 213 series3), measuring approximately 9 x 15 mm in maximum axial dimensions. Rare sub-5 mm nodules elsewhere in the lungs are also unchanged. No newnodule is seen. A new metallic structure suggesting a fiducial marker isseen in the posterior left lower lobe, proximal to the nodule of concern. The trachea and central bronchial tree remain patent. Centrilobular andparaseptal emphysema are again noted. Subpleural reticular opacity isagain seen bilaterally, compatible with fibrosis. No pleural or pericardial effusions are identified. Mild multichamber cardiomegaly is again seen. Moderate coronary arterycalcification is noted. Mild mediastinal lymphadenopathy is withoutsignificant change, with nodes measuring up to 13 mm short axis. A small portion of the upper abdomen included on the lowest images throughthe thorax is remarkable for diffusely diminished hepatic attenuationconsistent with fatty infiltration (partially imaged). A left renalcortical cyst is again seen. A neurostimulator device is again seen in the right anterior upper chest.A right total shoulder prosthesis is again noted. IMPRESSION: Impression: 1. No significant change in the 9 x 15 mm juxtapleural nodular opacitybeing followed at the left lung base. An additional follow-up CT isrecommended in 6 months. 2. No developing thoracic [place]adenopathy[place] ([id number]) -------- FINAL REPORT -------- Dictated By: Maria Teresa Matthew Dictated Date: 12/07/2024 10:00 ET Assigned Physician: Maria Teresa Matthew Reviewed and Electronically Signed By: Maria Teresa Matthew Signed Date: 12/07/2024 10:14 ET Workstation ID: [id number] Transcribed By: Self Edit Transcribed Date: 12/07/2024 10:00 ET Amanda Hemphill MD IMG CT PROCEDURES Final Re sult * MR Thoracic Spine wo and w Contrast (12/01/2024 8:51 AM EDT) Anatomical Region Laterality Modality T-spine, Spine Magnetic Resonan ce Historical Provider IMMahad MRI PROCEDURES Final Result * XR Chest 1 View (09/30/2024 10:47 AM EDT) Anatomical Region Laterality Modality Body Radiographic Marie ging 09/30/2024 11:0 1 AM EDT Impressions 09/30/2024 11:06 AM EDT The lungs are hypoinflated resulting in obscuration of the cardiac silhouette and pulmonary vasculature. Subsegmental atelectasis at the left lung base. No new focal consolidation, pleural effusion, or pneumothorax. Report reviewed and signed by : Dr. Charlie Castaneda on 09/30/2024 11:06 AM. Workstation Name - [id number] -------- FINAL REPORT -------- Dictated By: Charlie Castaneda Dictated Date: 09/30/2024 11:01 ET Assigned Physician: Charlie Castaneda Reviewed and Electronically Signed By: Charlie Castaneda Signed Date: 09/30/2024 11:06 ET Workstation ID: [id number] Transcribed By: Self Edit Transcribed Date: 09/30/2024 11:01 ET Narrative 09/30/2024 11:06 AM EDT CLINICAL HISTORY: postoperative care. TECHNIQUE: Portable chest x-ray. COMPARISON: None. FINDINGS: LINES AND TUBES: Hypoglossal stimulator device over the right hemithorax with lead extending superiorly out of the [id number]. CARDIAC SILHOUETTE: The lungs are hypoinflated resulting in obscuration of the cardiac silhouette and pulmonary vasculature. LUNGS/PLEURA: Subsegmental atelectasis at the left lung base. No focal consolidations. No pleural effusions. No evidence of a pneumothorax. BONES: No aggressive or acute bony pathology. Multilevel degenerative changes of the thoracic spine. Status post right shoulder arthroplasty, partially visualized on this exam. Procedure Note Charlie Castaneda MD - 09/30/2024 CLINICAL HISTORY: postoperative care. TECHNIQUE: Portable chest x-ray. COMPARISON: None. FINDINGS: LINES AND TUBES: Hypoglossal stimulator device over the right hemithoraxwith lead extending superiorly out of the [id number]. CARDIAC SILHOUETTE: The lungs are hypoinflated resulting in obscuration ofthe cardiac silhouette and pulmonary vasculature. LUNGS/PLEURA: Subsegmental atelectasis at the left lung base. No focal consolidations. No pleural effusions. No evidence of a pneumothorax. BONES: No aggressive or acute bony pathology. Multilevel degenerativechanges of the thoracic spine. Status post right shoulder arthroplasty,partially visualized on this exam. IMPRESSION: The lungs are hypoinflated resulting in obscuration of the cardiacsilhouette and pulmonary vasculature. Subsegmental atelectasis at the left lung base. No new focal consolidation, pleural effusion, or pneumothorax. Report reviewed and signed by : Dr. Charlie Castaneda on 09/30/2024 11:06 AM.Workstation Name - [id number] -------- FINAL REPORT -------- Dictated By: Charlie Castaneda Dictated Date: 09/30/2024 11:01 ET Assigned Physician: Charlie Castaneda Reviewed and Electronically Signed By: Charlie Castaneda Signed Date: 09/30/2024 11:06 ET Workstation ID: [id number] Transcribed By: Self Edit Transcribed Date: 09/30/2024 11:01 ET Amanda Hemphill MD IMG XR PROCEDURES Final Re sult * POCT Glucose, blood (09/30/2024 10:45 AM EDT) Only the most recent of2 resultswithin the time period is included. Glucose POCT 166 70 - 199 mg/dL 09/30/2024 10:46 AM EDT [facility] Comment: Fasting Reference Range: 70-99 mg/dL Non-Fasting Reference Range: 70-199 mg/dL Blood Capillary blood specimen / Unknown 09/30/2024 10:45 AM EDT 09/30/2024 10:47 AM EDT Amanda Hemphill MD LAB POINT OF CARE TEST DOCKED DEVICE UNSOLICITED RESULTS Final Result [facility] [address] [place] [address], [place] [phone] * XR Fluoro Up To 1 Hour (Statistics)(No Report) (09/30/2024 9:38 AM EDT) Narrative RIS PACS/VR - 09/30/2024 9:38 AM EDT This order has been auto-finalized and does not contain a result. Amanda Hemphill MD IMG FLUOROSCOPY PROCEDURES Final Result RIS PACS/VR * Non-gynecologic cytology (09/30/2024 8:34 AM EDT) Final Diagnosis A. Lung, Left Lower Lobe, FNA (ThinPrep and Cell Block): Negative for malignant epithelial cells. Mixed inflammatory cells and few bronchial cells. B. Lung, Left Lower Lobe, WASH (ThinPrep and Cell Block): Negative for malignant epithelial cells. Few mixed inflammatory cells and rare bronchial cells. C. Lymph Node,11 R (ThinPrep and Cell Block): Negative for malignant epithelial cells. Lymphocytes present; consistent with lymph node sampling. D. Lymph Node, Level 7 (ThinPrep and Cell Block): Negative for malignant epithelial cells. Lymphocytes present; consistent with lymph node sampling. E. Lymph Node, 4L (ThinPrep and Cell Block): Negative for malignant epithelial cells. Lymphocytes present; consistent with lymph node sampling. F. Lymph Node, 11L(ThinPrep and Cell Block): Negative for malignant epithelial cells. Lymphocytes present; consistent with lymph node sampling. PLEASE SEE COMMENT BELOW 10/02/2024 4:09 PM EDT [facility] Comment Please also see report of concurrent biopsy case ([id number]). Jasso slides were reviewed at the intradepartmental conference at [place], [place] on 10/02/2024, the above diagnosis reflects the consensus opinion. Part C was also reviewed by Dr. King who concurred with the rendered diagnosis. 10/02/2024 4:09 PM EDT [facility] Specimen A Adequacy Satisfactory for evaluation 10/02/2024 4:09 PM T [facility] Specimen B Adequacy Satisfactory for evaluation 10/02/2024 4:09 PM EDT [facility] Specimen C Adequacy Satisfactory for evaluation 10/02/2024 4:09 PM EDT [facility] Specimen D Adequacy Satisfactory for evaluation 10/02/2024 4:09 PM EDT [facility] Specimen E Adequacy Satisfactory for evaluation 10/02/2024 4:09 PM EDT [facility] Specimen F Adequacy Satisfactory for evaluation 10/02/2024 4:09 PM EDT [facility] Clinical Information IN CYTO 10/02/2024 4:09 PM EDT [facility] Gross Description A. Lung, Left Lower Lobe, FNA LEFT LOWER LOBE: Received: 40cc red CytoLyt with clots for ThinPrep and Cell Block. B. Lung, Left Lower Lobe, WASH LEFT LOWER LOBE: Received: 35cc very slightly pink CytoLyt for ThinPrep and Cell Block. C. Lymph Node, 11R: Received: 35cc red CytoLyt with light and dark flecks and clots for ThinPrep and Cell Block. D. Lymph Node, Level 7: Received: 30cc red CytoLyt with light and dark flecks and clots for ThinPrep and Cell Block. E. Lymph Node, 4L: Received: 30cc pink CytoLyt with tissue fragments for ThinPrep and Cell Block. F. Lymph Node, 11L: Received: 30cc red CytoLyt with light and dark flecks and clots for ThinPrep and Cell Block. 10/02/2024 4:09 PM EDT [facility] Disclaimer The technical components of [place] [address] CLIA # [id number] 10/02/2024 4:09 PM EDT [facility] Fine Needle Aspirate Structure of lower lobe of left lung / Unknown 09/30/2024 8:34 AM EDT 09/30/2024 10:48 AM EDT Comment:IN CYTO Specimen obtained by lavage (specimen) Structure of lower lobe of left lung / Unknown 09/30/2024 8:37 AM EDT 09/30/2024 10:48 AM EDT Comment:IN CYTO Specimen obtained by fine needle aspiration procedure (specimen) Lymph node specimen / Unknown 09/30/2024 8:37 AM EDT 09/30/2024 10:53 AM EDT Specimen obtained by fine needle aspiration procedure (specimen) Lymph node specimen / Unknown 09/30/2024 8:37 AM EDT 09/30/2024 10:53 AM EDT Specimen obtained by fine needle aspiration procedure (specimen) Lymph node specimen / Unknown 09/30/2024 8:37 AM EDT 09/30/2024 10:53 AM EDT Specimen obtained by fine needle aspiration procedure (specimen) Lymph node specimen / Unknown 09/30/2024 8:37 AM EDT 09/30/2024 10:53 AM EDT us Amanda Hemphill MD LAB CYTOLOGY ORDERABLES Fi nal Result [facility] [address] [place] [address], [place] [phone] * (ABNORMAL) CBC auto differential (09/24/2024 9:27 AM EDT) WBC 7.9 4.8 - 10.8 K/mcL LAB HEMETOLOGY METHOD 09/24/2024 10:08 AM EDT [facility] RBC 4.80 4.50 - 5.50 M/mcL LAB HEMETOLOGY METHOD 09/24/2024 10:08 AM [facility] Hemoglobin 13.8 13.5 - 17.5 g/dL LAB HEMETOLOGY METHOD 09/24/2024 10:08 AM [facility] Hematocrit 43.4 42.0 - 54.0 % LAB HEMETOLOGY METHOD [facility]24[facility]24 [facility] MCV 90.6 79.0 - 98.0 FL LAB HEMETOLOGY METHOD 09/24/2024 10:08 AM [facility] MCH 28.8 27.0 - 32.0 pcg LAB HEMETOLOGY METHOD 09/24/2024 10:08 AM [facility] MCHC 31.8(L) 32.0 - 37.0 g/dL LAB HEMETOLOGY METHOD 09/24/2024 10[facility] RDW 13.7 11.0 - 15.0 % LAB HEMETOLOGY METHOD 09/24/2024 10:08 AM [facility] Platelets 365 130 - 400 K/mcL LAB HEMETOLOGY METHOD 09/24/2024 10:08 AM EDT [facility] MPV 9.7 7.0 - 11.0 FL LAB HEMETOLOGY METHOD 09/24/2024 10:08 AM [facility] NRBC 0.0 <1.0 % LAB HEMETOLOGY METHOD 09/24/2024 10:08 AM [facility] NRBC Absolute 0.00 <0.10 K/mcL LAB HEMETOLOGY METHOD 09/24/2024 10:08 AM [facility] Neutrophils Relative 53.3 % LAB HEMETOLOGY METHOD 09/24/2024 10:08 AM [facility] Lymphocytes Relative 33.2 % LAB HEMETOLOGY METHOD 09/24/2024 10:08 AM [facility] Monocytes Relative 11.2 % LAB HEMETOLOGY METHOD 09/24/2024 10:08 AM [facility] Eosinophils Relative 1.5 % LAB HEMETOLOGY METHOD 09/24/2024 10:08 AM [facility] Basophils Relative 0.4 % LAB HEMETOLOGY METHOD 09/24/2024 10:08 AM [facility] Immature Granulocytes Relative 0.4 % LAB HEMETOLOGY METHOD 09/24/2024 10:08 AM [facility] Neutrophils Absolute 4.23 1.50 - 7.00 K/mcL LAB HEMETOLOGY METHOD 09/24/2024 10:08 AM [facility] Lymphocytes Absolute 2.63 1.00 - 5.00 K/mcL LAB HEMETOLOGY METHOD 09/24/2024 10:08 AM [facility] Monocytes Absolute 0.89 0.20 - 1.00 K/mcL LAB HEMETOLOGY METHOD 09/24/2024 10:08 AM [facility] Eosinophils Absolute 0.12 0.00 - 0.50 K/mcL LAB HEMETOLOGY METHOD 09/24/2024 10:08 AM EDT [facility] Basophils Absolute 0.03 0.00 - 0.20 K/mcL LAB HEMETOLOGY METHOD 09/24/2024 10:08 AM EDT [facility] Immature Granulocytes Absolute 0.03 0.00 - 0.03 K/mcL LAB HEMETOLOGY METHOD 09/24/2024 10:08 AM EDT [facility] Blood Venous blood specimen / Unknown Venipuncture / Unknown 09/24/2024 9:27 AM EDT 09/24/2024 9:54 AM EDT Amanda Hemphill MD LAB BLOOD ORDERABLES Final Result Performing Organization Address [facility]/ZIP Co de Phone Number [facility] [address] [place] [address], [place] [phone] * Prothrombin time with INR (09/24/2024 9:27 AM EDT) Pathologist [facility] Protime 12.9 10.6 - 13.9 sec LAB COAGULATION METHOD 09/24/2024 10:23 AM EDT [facility] INR 1.0 LAB COAGULATION METHOD 09/24/2024 10:23 AM T [facility] Blood Venous blood specimen / Unknown Venipuncture / Unknown 09/24/2024 9:27 AM EDT 09/24/2024 9:54 AM EDT Amanda Hemphill MD LAB BLOOD ORDERABLES Final Result Performing Organization Address [facility]/ZIP Co de Phone Number [facility] [address] [place] [address], [place] [phone] * (ABNORMAL) Basic metabolic panel (09/24/2024 9:27 AM EDT) Sodium 137 133 - 145 mmol/L LAB CHEMISTRY METHOD 09/24/2024 10:52 AM EDT [facility] Potassium 4.7 3.5 - 5.5 mmol/L LAB CHEMISTRY METHOD 09/24/2024 10:52 AM [facility] Chloride 103 96 - 110 mmol/L LAB CHEMISTRY METHOD 09/24/2024 10:52 AM [facility] CO2 26 21 - 32 mmol/L LAB CHEMISTRY METHOD 09/24/2024 10:52 AM [facility] Anion Gap 8 3 - 11 LAB CHEMISTRY METHOD 09/24/2024 10:52 AM [facility] Glucose 110(H) 70 - 100 mg/dL LAB CHEMISTRY METHOD 09/24/2024 10:52 AM [facility] BUN 17 5 - 25 mg/dL LAB CHEMISTRY METHOD 09/24/2024 10:52 AM [facility] Creatinine 0.77 0.70 - 1.30 mg/dL LAB CHEMISTRY METHOD 09/24/2024 10:52 AM [facility] eGFR 97 >=60 mL/min/1. 73m2 LAB CHEMISTRY METHOD 09/24/2024 10:52 AM [facility] Comment:Calculation based on the Chronic Kidney Disease Epidemiology Collaboration (CKD-EPI) equation refit without adjustment for race. BUN/Creatinine Ratio 22.1 LAB CHEMISTRY METHOD 09/24/2024 10:52 AM [facility] Calcium 9.7 8.5 - 10.5 mg/dL LAB CHEMISTRY METHOD 09/24/2024 10:52 AM [facility] Blood Venous blood specimen / Unknown Venipuncture / Unknown 09/24/2024 9:27 AM EDT 09/24/2024 9:54 AM EDT us Amanda Hemphill MD LAB BLOOD ORDERABLES Final Result [facility] [address] [place] [address], * Hepatitis C antibody (07/15/2024 9:45 AM EST) [facility] Hepatitis C Antibody Negative Negative LAB CHEMISTRY METHOD 07/15/2024 5:17 PM EST [facility] Blood Venous blood specimen / Unknown Venipuncture / Unknown 07/15/2024 9:45 AM EST 07/15/2024 9:45 AM EST Venkata Cortes MD LAB BLOOD ORDERABLES Fin al Result [facility] [address] [place] [address], [place] [phone] * Diabetes Foot Exam (03/25/2024) [facility] Diabetes: Annual Foot Exam Abstracted Result [facility] Historical Provider HEALTH MAINTENANCE Final Result * Urine Albumin Creatinine Ratio (03/12/2024) [facility] Urine Albumin Creatinine Ratio Abstracted Result [facility] Historical Provider HEALTH MAINTENANCE Final Result * (ABNORMAL) Hemoglobin A1c (03/12/2024) [facility] Hemoglobin A1C 7.4(A) <=6.5 % Blood Venous blood specimen / Unknown Result [facility] Historical Provider LAB BLOOD ORDERABLES Julia l Result * (ABNORMAL) Lipid panel (03/12/2024) [facility] LDL/HDL Ratio 3 0 - 4 Triglycerides 240(A) 0 - 150 mg/dL Cholesterol 130 0 - 200 mg/dL HDL 45 >=40 mg/dL LDL Cholesterol 37 0 - 100 mg/dL Blood Venous blood specimen / Unknown Result [facility] Historical Provider LAB BLOOD ORDERABLES Julia l Result * Colonoscopy (08/17/2015) [facility] Colonoscopy Abstracted, no interpretation Anatomical Region Laterality Modality Other Historical Provider HEALTH MAINTENANCE Final Result from Last 3 Months or Most Recently Relevant to Health Maintenance Insurance [employer] Advance Directives * Full Code - Default (Latest Code Status on File) Date Activated Date Inactivated Comments 09/30/2024 6:02 AM 09/30/2024 1:45 PM This is orde r is used when code status has not been discussed with the patient, or code status is otherwise unknown/unconfirmed To update the patient's code status, place a code status order. Do not modify or discontinue any currently active code status orders. Care Teams Sustainability Engineer Relationship Specialty Start Date End Date Horacio Mcduffie MD [address] [place] [address] [place] [id number] PCP - General Internal Medicine 09/12/20
== END 2024-12-23 15:24 | disposition home or self-care (01) ==
LOC: HO.HNS 13:40
PROVIDERS: PCP Pediatrics; Visit Provider Neurological Surgery
DX: G96.198 Other disorders of meninges, not elsewhere classified (principal); M48.07 Spinal stenosis, lumbosacral region
CPT/HCPCS: 99204

== ENCOUNTER → 2024-12-23 13:39 | Outpatient (BNVA) | payer MEDICARE, SELFPAY | PROVIDERS: PCP Pediatrics; Visit Provider Neurological Surgery | DX: G96.198 Other disorders of meninges, not elsewhere classified (principal); M48.07 Spinal stenosis, lumbosacral region | CPT/HCPCS: 99202 ==

== ENCOUNTER 2025-01-17 09:51 | Emergency (ER) | payer MEDICARE, SELFPAY ==
--- NOTE | ~2025-01-17 | CT_ITS ---
CLINICAL HISTORY: left side neck pain CT Head without contrast. CT angiography head and neck with contrast. 3D Postprocessing. Comparison: CT - CT ANGIO HEAD NECK - 01/17/25 11:51 EDT Findings: HEAD CT: No intra-axial mass, midline shift, hydrocephalus, or acute hemorrhage. Age appropriate cerebral volume loss. Patchy low-density within the periventricular and subcortical white matter. The visualized paranasal sinuses and mastoid air cells are normal. The orbits are within normal limits. No skull fracture. HEAD AND NECK CTA: High-grade left vertebral artery origin stenosis. 20% calcific stenosis of the bilateral carotid bifurcations and internal carotid artery origins. Mild calcific stenosis of the cavernous segments of the internal carotid arteries bilaterally. The arteries of the head and neck are otherwise within normal limits. The visualized thyroid gland is unremarkable. No cervical mass or fluid collection. car tracer within the right anterior chest wall with right cervical leads present. Lung apices clear. No acute fracture. IMPRESSION: 1. No acute process involving the arterial tree of the head and neck. 2. Anterior and posterior circulation stenoses as described above. This document has been electronically signed by: Az Chen MD on 01/17/2025 12:48:24
[2025-01-17 09:55] VITALS: BP 167/73; PULSE 47; RESP 18; TEMP 36.7; O2SAT 95; BMI 32.3
--- NOTE | 2025-01-17 10:48 | ECG_ITS ---
Test Reason : CHEST PAIN Blood Pressure : */* mmHG Vent. Rate : 48 BPM Atrial Rate : 48 BPM P-R Int : 166 ms QRS Dur : 104 ms QT Int : 432 ms P-R-T Axes : 65 -1 -5 degrees QTcB Int : 385 ms Sinus bradycardia Otherwise normal ECG No previous ECGs available Referred By: Omega Jeffries Electronically Signed By: Zachary Mccormick
--- NOTE | 2025-01-17 10:49 | ED_ITS ---
HPI - Neck Pain/Injury General Chief Complaint: Neck Pain/Injury Stated Complaint: neck pain Time Seen by Provider: 01/17/25 10:41 Source: patient Mode of arrival: ambulatory Limitations: no limitations History of Present Illness HPI Narrative: This is a 69 years old the patient presented to the emergency department with a chief complaint of left side neck pain for about a week denies any fever or chills vomiting. He is also complaining of headache and dizziness he feels off balance. MD complaint: neck pain Onset (ago): day(s) Place: home Radiation: left lateral Severity: moderate Quality: burning and sharp Duration: constant Relieving factors: none Exacerbating factors: none Associated symptoms: none Related Data Previous Rx's ?Medication ?Instructions ?Recorded oxycodone 5 mg tablet 5 mg PO Q4H PRN pain #20 tab s 01/17/25 Allergies Allergy/AdvReac Type Severity Reaction Status Date / Time morphine Allergy Severe Unknown Verified 01/17/25 10:01 LATEX Allergy Unknown itching Uncoded 01/17/25 10:01 Review of Systems 2 Constitutional: Constitutional: Reports no additional constitutional complaints Eyes: Eyes: Reports no additional eye complaints Respiratory: Respiratory: Reports no additional respiratory complaints [facility] Past Medical History [facility] Narrative: History of diabetes hypertension Social History Social History Smoked in Last 30 Days: No Use of substances other than those prescribed or required for medical reasons: No Advance Directives: No Advance Directives Information Provided: Yes Physical Exam 2 Exam: Exam: He looks well is not toxic-appearing he is sitting comfortable in the stretcher Vital Signs: Vital Signs: Last Vital Signs Temp 98.2 F 01/17/25 18:38 Pulse 50 01/17/25 18:38 Resp 18 01/17/25 18:38 BP 146/64 H 01/17/25 18:38 Pulse Ox 98 01/17/25 18:38 O2 Del Method Room Air 01/17/25 18:38 BMI result Body Mass Index 32.3 His vital stable afebrile Const: General: cooperative, comfortable, no acute distress, well developed, alert and awake Nutritional Appearance: average body habitus O rientation/consciousness: patient oriented x3 Limitations: no limitations HEENT: Head: Yes normal to inspection Face and sinus: Yes normal facial exam Mouth: Normal oral and palatal mucosa present Neck: Neck: Yes normal visual inspection Chest: Chest palpation & inspection: normal inspection of the chest Resp: Effort & Inspection: normal respiratory effort Auscultation: clear to auscultation bilaterally Cardio: Jugular venous distension: no JVD Rate: regular rate Rhythm: r egular rhythm GI: Inspection: Yes normal to inspection Palpation (GI): Soft to palpation, not firm and nontender Auscultation: normal bowel sounds Skin: General skin exam: no rashes or lesions noted, elasticity normal and turgor normal Lesions: no lesions Rashes: no rashes Neuro: General: patient oriented x3 Course Reevaluation(s) Reevaluation #1: CTA resulted he has a high-grade left vertebral artery origin stenosis. Carotid artery okay. At this point I will page neurology a I will consult with neuro. call was placed at this time to the Neurology on-call Time: 15:26 Reevaluation #2: MRI of the brain was ordered because also complaining of dizziness and headache with the finding of I agreed the left vertebral artery stenosis we need to make sure he does not have cerebellar infarct. Case was signed out to Dr. Izaguirre Time: 16:13 Reevaluation #3: 01/17/2025 Santana Izaguirre MD note at 18:57 hours I assumed care of this patient from my colleague, Dr. Jeffries at 16:13 hours. The patient is a 69-year-old male with a history of atrial fibrillation on Eliquis, hypertension, diabetes mellitus, right lower extremity sciatica, sleep apnea with implanted device. I was informed that the patient could not get an MRI at this facility with a his implanted device. The patient states that he has been able to get MRIs at an outpatient facility in the past with this device because they have a different MRI then ours. The patient presented for evaluation of severe left-sided neck pain that came on while he was driving 1 week prior. The pain is worse when he turns his head to the left. He also had a headache associated with the neck pain. He states he felt off balance since onset of the pain. He denied numbness, weakness, change in his vision. His symptoms have not gotten worse over the past week. Here in the emergency department he did receive diazepam and oxycodone for the pain in the states that the oxycodone did improve his pain. I did discuss the high-grade stenosis and calcification of the left vertebral carotid artery with the patient and the patient's . This artery is not amenable to surgical repair and the recommendation is to control risk factors to help prevent further stenosis. The patient is on Eliquis therefore he does not need to be on aspirin and Plavix and I did discuss this with him as well. Patient was advised to follow up with his PCP to discuss further management of his diabetes, hypertension and high cholesterol. I told the patient that minimally he should probably have a hemoglobin A1c and a fasting cholesterol done as an outpatient. Also, the patient may have had a stroke and I recommended that he pursue an MRI of his brain as an outpatient at the facility where he has gotten in his previous MRIs. At this time I do not think that the patient needs to be admitted but should get further workup as an outpatient. Medications Administered Discontinued Medications Generic Name Dose Route Start Last Admin Trade Name Freq PRN Reason Stop Dose Admin Diazepam 2 mg 01/17/25 10:47 01/17/25 11:06 Diazepam 2 Mg Tablet PO 01/17/25 10:48 2 mg ONCE ONE Administration Iohexol 100 ml 01/17/25 12:31 01/17/25 12:32 Iohexol 350 Mg/Ml 100 Ml Infus..Btl IV 01/17/25 12:32 70 ml ONCE ONE Administration Ketorolac Tromethamine 15 mg 01/17/25 10:47 01/17/25 11:06 Ketorolac Tromethamine 15 Mg/Ml Vial IVPUSH 01/17/25 10:48 15 mg ONCE ONE Administration Oxycodone HCl 10 mg 01/17/25 14:32 01/17/25 14:54 Oxycodone Hcl Immed Release 5 Mg Tablet PO 01/17/25 14:33 10 mg ONCE ONE Administration Oxycodone HCl 5 mg 01/17/25 18:17 01/17/25 18:23 Oxycodone Hcl Immed Release 5 Mg Tablet PO 01/17/25 18:18 5 mg ONCE STA Administration Medical Decision Making Medical Decision Making MDM Narrative: Patient is here complaining of left-sided neck pain, we will obtain labs imaging Differential Diagnosis Differential Diagnoses: The differential diagnosis associated with the presentation includes Muscular pain/vertebral or carotid dissection Admission/Observation Consideration of admission/observation: Escalation of care including admission/observation considered Lab Data 01/17/25 11:01 01/17/25 11:01 Labs: Lab Results 01/17/25 Range/Units 11:01 WBC 7.7 (4.8-10.8) X10*3/uL RBC 4.40 L (4.60-5.80) X10*6/uL Hgb 12.8 L (14.0-18.0) g/dl Hct 38.5 L (42.0-52.0) % MCV 87.5 (80.0-98.0) fL MCH 29.1 (27.0-33.0) pg MCHC 33.2 (31.0-36.0) g/dl RDW 13.2 (11.0-16.0) % Plt Count 270 (160-400) X10*3/uL MPV 9.3 L (9.4-12.4) fL Immature Gran % (Auto) 0.3 (0.0-0.4) % Neut % (Auto) 59.5 (45-73) % Lymph % (Auto) 26.6 (20-40) % [place] % (Auto) 11.2 H (2-11) % Eos % (Auto) 2.1 (0-4) % Baso % (Auto) 0.3 (0-2) % Lymph # (Auto) 2.0 (1.2-4.9) X10*3/uL [place] # (Auto) 0.9 (0.1-1.2) X10*3/uL Eos # (Auto) 0.2 (0.0-0.4) X10*3/uL Baso # (Auto) 0.0 (0.0-0.2) X10*3/uL Abs Immat Gran (auto) 0.02 (0.00-0.03) X10*3/uL Absolute Neuts (auto) 4.6 (2.0-8.3) x10*3/uL Absolute Nucleated RBC 0.000 (0.0-0.012) X10*3/uL Nucleated RBC % (auto) 0.0 (0.0-0.2) /100WBC Sodium 138 (135-145) mmol/L Potassium 4.3 (3.3-5.1) mmol/L Chloride 105 (96-108) mmol/L Carbon Dioxide 25 (22-29) mmol/L Anion Gap 12 (12-20) BUN 14 (9-16) mg/dL Creatinine 0.72 (0.5-1.4) mg/dL Estim Creat Clear Calc 115.9 Estimated GFR > 60 Random Glucose 168 H (60-115) mg/dL Calcium 9.2 (8.4-10.2) mg/dL Total Bilirubin 0.5 (0.0-1.0) mg/dL AST 31 (5-37) U/L ALT 60 H (0-40) U/L Alkaline Phosphatase 57 (39-117) U/L Troponin I High Sens 7.1 (<3.5-35.0) ng/L Total Protein 7.7 (6.5-8.0) g/dL Albumin 4.6 (3.5-5.0) g/dL Discharge Plan Discharge Clinical Impression: Neck pain, Stenosis of left vertebral artery, Balance problem Patient Disposition: Home, Self-Care Additional Instructions: Your CT scan of your head and neck did not reveal any bleeding in the brain or dissection of your neck arteries as the cause of your pain. You do have a high-grade left vertebral artery stenosis (narrowing of this artery thick goes to the back of your brain). This narrowing is not treated surgically but is treated by reducing your risk for atherosclerotic disease (hardening of the arteries). This involves aggressively treating your diabetes, your high blood pressure and your cholesterol. This is something that your primary care doctor should talk to you about to see if you need any change in your medications or any further testing. Minimally, you should get a fasting cholesterol/lipid panel and a hemoglobin A1c as an outpatient. At this time, I am not sure if you had a stroke as the cause of you feeling off balance. You can not get an MRI of your brain here since our MRI is not compatible with the your sleep apnea implanted device. I recommend that you talk to your doctor about getting an MRI of your brain to see if you had a stroke as the cause of your off-balance feeling. Take Tylenol (acetaminophen) 500 mg pills, 2 pills every 6 hours as needed for pain. For pain not relieved by Tylenol take oxycodone 5 mg pills, 1 pill every 4 hours as needed for pain. Do not drive or work while taking this medication since they can cause sleepiness. Oxycodone is a narcotic medication that can be addicting. If you are concerned about addiction you can ask the pharmacist for less pills or do not get this prescription filled. Continue taking your other medications as prescribed by your providers. Follow-up with your doctor in 2 days. Please return to the emergency department if your symptoms get worse or if you develop any symptoms that are concerning to you. Your prescription was sent to the 24 hour [facility] pharmacy on [address] in [place] Prescriptions: New oxycodone 5 mg tablet 5 mg PO Q4H PRN (Reason: pain) Qty: 20 0RF Rx Instructions: Partial Fill upon patient request. Discharge Date/Time: 01/17/25 18:39 Print Language: Monegasque
--- OUTSIDE RECORDS SUMMARY | 2025-01-17 10:51 | XMS_ITS | Clinical Summary ---
Author Organization [employer] Address [address] [place] [address] [address] [place] [address] Care Team Providers Care Buttermaker Name Role Phone Prabhjot Mcduffie MD Primary Care Provider [phone] Allergies Active Allergy Reactions Criticality Noted Date [...] Relevant to Health Maintenance Results * COLONOSCOPY: [facility] (08/17/2015 12:00 AM EST) Anatomical Region Laterality Modality Endoscopy 08/17/2015 Narrative 08/17/2015 12:00 AM EST Refer to Fovea for result details Legacy Procedure: COLONOSCOPY: [facility] Procedure Note Provider, Bella, - 10/04/2022 Refer to Fovea for result details Legacy Procedure: COLONOSCOPY: [facility] Historical Provider ENDOSCOPY PROCEDURE ORDER PORTIA Final Result from Last 3 Months or Most Recently Relevant to Health Maintenance Insurance [employer] Member Subscriber Plan / Payer (Ef fective 2023-Present) Name:Mj Arthur Relation to Subscriber:Self Name:Mj Arthur Payer ID:Not on file Group ID:Not on file Type:Not on file Address: [address] [id number] [employer] [place] [address] Care Teams Buttermaker Relationship Specialty Start Date End Date Prabhjot Mcduffie MD PCP - General Internal Medicine 05/28/22
--- OUTSIDE RECORDS SUMMARY | 2025-01-17 10:51 | XMS_ITS | Encounter Summary ---
Author Organization [facility] Address [address] [place] [address] Care Team Providers Care Prn Physical Therapist Name Role Phone Horacio Mcduffie MD Primary Care Provider [phone] Reason for Visit * Reason Onset Date Comments patient call 01/08/2025 Encounter Details Date Type Department Care Team (Late st Contact Info) Description 01/08/2025 Telephone Gastroenterology - [place] [address] [place] [address] Emile Kirby MD [address] [place] [address] patient call Social History Tobacco Use Types Packs/Day Years Used Date Smoking Tobacco: Former Cigarettes Q uit: 06/24/1994 Smokeless Tobacco: Never Alcohol Use Standard Drinks/Week Comments No 0 [...] Orientation Straight 08/21/2024 12 :07 PM EDT documented as of this encounter Progress Notes * Delia Solis - 01/08/2025 2:54 PM EDT Patient's Kalyani called and was upset that no one had called to go over the results of her 's EGD and to speak to Garth. I explained that I would send a message to Dr. Kirby's staff to call to go over the results, but Garth was no longer with the office. Kalyani was very upset that no one had called to say that Garth was no longer with the office, but declined to schedule an appt with anotherprovider. documented in this encounter Plan of Treatment Upcoming Encounters Date Type Department Care Team (Late st Contact Info) Description 02/25/2025 3:00 PM EDT Office Visit Adult Medicine - [place] [address] [place] [address] Annalise Carvajal NP [address] [place] [address] documented as of this encounter Visit Diagnoses Not on filedocumented in this encounter Care Teams Prn Physical Therapist Relationship Specialty Start Date End Date Horacio Mcduffie MD [address] [place] [id number] PCP - General Internal Medicine 09/12/20 documented as of this encounter
[2025-01-17 11:05] LABS: MANUAL DIFF FLAG NO
--- NOTE | 2025-01-17 11:08 | PC.NURSE ---
patient a&ox3, iv inserted, labs drawn, pt medicated for 10/10 neck pain, neuro intact, pt awaiting ct scan, call german within reach, plan of care ongoing
[2025-01-17 11:09] LABS: Hematocrit 38.5 % (42.0-52.0); Hemoglobin 12.8 g/dl (14.0-18.0); Imm Gran Abs Auto 0.02 X10*3/uL (0.00-0.03); Imm Gran Pct Auto 0.3 % (0.0-0.4); Lymphocytes Absolute Auto 2.0 X10*3/uL (1.2-4.9); Mean Corpuscular HGB Conc 33.2 g/dl (31.0-36.0); Mean Corpuscular Hemoglobin 29.1 pg (27.0-33.0); Mean Corpuscular Volume 87.5 fL (80.0-98.0); NRBC Abs Auto 0.000 X10*3/uL (0.0-0.012); NRBC Pct Auto 0.0 /100WBC (0.0-0.2); Platelet Count 270 X10*3/uL (160-400); Red Blood Count 4.40 X10*6/uL (4.60-5.80); White Blood Count 7.7 X10*3/uL (4.8-10.8)
[2025-01-17 11:34] LABS: Alanine Aminotransferase 60 U/L (0-40); Albumin Level 4.6 g/dL (3.5-5.0); Alkaline Phosphatase 57 U/L (39-117); Anion Gap 12 (12-20); Aspartate Amino Transferase 31 U/L (5-37); Blood Urea Nitrogen 14 mg/dL (9-16); Calcium 9.2 mg/dL (8.4-10.2); Carbon Dioxide 25 mmol/L (22-29); Chloride 105 mmol/L (96-108); Creatinine Clr Calc Pharmacy 115.9; Estimated Glomerular Filt Rate > 60; Potassium 4.3 mmol/L (3.3-5.1); Sodium 138 mmol/L (135-145); Total Protein 7.7 g/dL (6.5-8.0)
[2025-01-17 11:35] VITALS: BP 141/54; PULSE 48; RESP 20; TEMP 36.6; O2SAT 93
[2025-01-17 11:41] LABS: Troponin-I High Sensitivity 7.1 ng/L (<3.5-35.0)
[2025-01-17] MEDS: iohexoL 350 MG/ML 100 ML INFUS..BTL IV (12:32)
[2025-01-17 14:20] VITALS: BP 133/53; PULSE 50; RESP 16; TEMP 36.4; O2SAT 93
--- NOTE | 2025-01-17 14:24 | PC.NURSE ---
patient a&ox3, vss, pt stating his pain has increased back up to 8/10 pain, provider notified, pt awaiting radiology results, call german within reach, plan of care ongoing
[2025-01-17] MEDS: oxyCODONE HCl Immed Release 5 MG TABLET 10 MG PO (14:54)
--- NOTE | 2025-01-17 14:55 | PC.NURSE ---
pt medicated for 8-02/17 pain
--- NOTE | 2025-01-17 17:21 | PC.NURSE ---
spoke with arrt technologist Byron, requested that pt bring inspire implant remote in order to complete MRI. Pt spouse left to get remote from home. T/W was then contacted again by Alex in MRI, sts that [facility] does not have the proper transnit coil to safely conduct the scan. Alex sts that if pt was to be scanned w/o proper coil there is significant risk for overheating/neurological impairment. MRI cannot be done at this time. MD Izaguirre notified, Pt updated.
[2025-01-17] MEDS: oxyCODONE HCl Immed Release 5 MG TABLET PO (18:23)
[2025-01-17 18:29] VITALS: BP 146/64; PULSE 50; RESP 18; TEMP 36.8; O2SAT 98
[2025-01-17 18:38] VITALS: BP 146/64; PULSE 50; RESP 18; TEMP 36.8; O2SAT 98
== END 2025-01-17 18:39 | disposition home or self-care (01) ==
PROVIDERS: Emergency Medicine; Emergency Provider Emergency Medicine Emergency Medical Services; PCP Pediatrics
DX: I65.02 Occlusion and stenosis of left vertebral artery (principal); M54.2 Cervicalgia; R07.89 Other chest pain; R00.1 Bradycardia, unspecified; R42 Dizziness and giddiness; I48.91 Unspecified atrial fibrillation; I10 Essential (primary) hypertension; E11.9 Type 2 diabetes mellitus without complications; R51.9 Headache, unspecified; Z79.01 Long term (current) use of anticoagulants; Z79.899 Other long term (current) drug therapy
CPT/HCPCS: 36415; 70496; 70498; 80053; 84484; 85025; 93005; 96374; 99284; 99285; J1885; Q9967

== ENCOUNTER → 2025-01-17 10:47 | Outpatient (BNV) | payer MEDICARE, SELFPAY | PROVIDERS: Emergency Provider Emergency Medicine; PCP Pediatrics; Visit Provider Radiology Diagnostic Radiology | DX: M54.2 Cervicalgia (principal) | CPT/HCPCS: 70496; 70498 ==

== ENCOUNTER → 2025-01-17 10:48 | Outpatient (BNV) | payer MEDICARE, SELFPAY | PROVIDERS: Emergency Provider Emergency Medicine Emergency Medical Services; PCP Pediatrics; Visit Provider Internal Medicine Cardiovascular Disease | DX: R00.1 Bradycardia, unspecified (principal) | CPT/HCPCS: 93010 ==

== ENCOUNTER 2025-01-22 13:18 | Outpatient (REF) | payer MEDICARE, SELFPAY ==
--- NOTE | ~2025-01-22 | CT_ITS ---
CLINICAL HISTORY: Z98.890 - Other specified postprocedural states CT lumbar spine without contrast Comparison: None provided Findings: Vertebral alignment is within normal limits. No acute fractures or dislocations. There is multiple level degenerative disc and facet change. There is left lower lobe consolidation, possible pneumonia, subsegmental atelectasis, or scarring. Visualized abdominal contents unremarkable. IMPRESSION: 1. No acute osseous findings. 2. Left lower lobe consolidation, differential considerations noted. This document has been electronically signed by: David Landry MD on 01/23/2025 09:29:29
--- OUTSIDE RECORDS SUMMARY | 2025-01-22 13:21 | XMS_ITS | Clinical Summary ---
Author Organization [facility] Address [address] [place] [address] Care Team Providers Care Wind Farm Operations Manager Name Role Phone Unavailable Primary Care Provider Unavailabl e Encounters Date Type Department Care Team Description 01/18/2025 Orders Only [facility] [address] [facility] [address] [place] [address] Maximiliano Hua MD from Last 3 Months Social History Tobacco Use Types Packs/Day Years Used Date Smoking Tobacco: Never Assessed Sex and Gender Information Value Date Recorded Sex Assigned at Not on file Legal Sex Male 4:51 PM EST Gender Identity Not on file Sexual Orientation Not on file Plan of Treatment Health Maintenance Due Date Last Done Comments Pneumococcal Vaccine: 50+ Ye ars (1 of 2 - PCV) 1974 Colorectal Cancer Screening: Annual FOBT 2004 Colorectal Cancer Screening: Colonoscopy 2004 Colorectal Cancer Screening: Sigmoidoscopy 2004 Influenza Vaccine (#1) 2025 Hepatitis B Vaccine Aged Out No longe r eligible based on patient's age to complete this topic Procedures Procedure Name Priority Date/Time Associated Diagnosis Comments URINE ALBUMIN / CREATININE RATIO Routine 01/18/2025 4:13 PM EDT BASIC METABOLIC PANEL Routine 01/18/2025 4:06 PM EDT from Last 3 Months Results * (ABNORMAL) Urine Albumin / Creatinine Ratio (01/18/2025 4:13 PM EDT) Creatinine, Urine 79.0 mg/dL [facility] Microalbumin Urine Random 137.0(H) 0.0 - 29.0 mg/L [facility] Microalbumin/Cre atinine Ratio 173(H) <30 mg/g creat [facility] 01/18/2025 4:13 PM EDT 01/18/2025 5:28 PM EDT us Maximiliano Hua MD LAB URINE ORDERABLES Final Resul t Performing Organization Address [facility] Co de Phone Number [facility] [address] [place] [address] * (ABNORMAL) Basic Metabolic Panel (01/18/2025 4:06 PM EDT) Sodium 134 133 - 145 mmol/L [facility] Potassium 4.9 3.5 - 5.5 mmol/L [facility] Chloride 100 96 - 110 mmol/L [facility] Bicarbonate (CO2) 30 21 - 32 mmol/L [facility] Anion Gap 4 3 - 11 [facility] Glucose 122(H) 70 - 100 mg/dL [facility] BUN 14 5 - 25 mg/dL [facility] Creatinine Serum 0.85 0.70 - 1.30 mg/dL [facility] eGFR 94 >=60 mL/min/1. 73m2 [facility] Comment:Calculation based on the Chronic Kidney Disease Epidemiology Collaboration (CKD-EPI) equation refit without adjustment for race. BUN/Creatinine Ratio 16.5 [facility] Calcium 9.5 8.5 - 10.5 mg/dL [facility] 01/18/2025 4:06 PM EDT 01/18/2025 5:27 PM EDT us Maximiliano Hua MD LAB BLOOD ORDERABLES Final Resul t Performing Organization Address [facility] Co de Phone Number [facility] [address] [place] [address] from Last 3 Months
--- OUTSIDE RECORDS SUMMARY | 2025-01-22 13:21 | XMS_ITS | Clinical Summary ---
Author Organization [facility] Address [address] [address] Phone Care Team Providers Care Storage Garage Attendant Name Role Phone Prabhjot Mcduffie MD Primary Care Provider + Allergies Active Allergy Reactions Criticality Noted Date Comments Diphenhydramine 07/05/2017 Other Reaction(s): Other Other reaction(s): confusion Confusion Latex Rash Low 06/24/2017 Other Reaction(s): Rash/Dermatitis Lisinopril 06/24/2017 Other Reaction(s): Cough Morphine Nausea And Vomiting 01/25/2022 Other Reaction(s): Other Vomit Medications amLODIPine (NORVASC) 10 MG tablet Take 1 tablet by mouth daily. 4 Active ELIQUIS 5 mg tablet Take 5 mg by mouth 2 (two) times a day. Active aspirin 81 mg chewable tablet 1 tablet every morning. Active atorvastatin (LIPITOR) 20 MG tablet Take 1 tablet by mouth daily. 4 Active baclofen (LIORESAL) 10 MG tablet take one tablet by mouth three times a day as needed for muscle spasms 4 Active docusate sodium (COLACE) 100 MG capsule Take 1 capsule by mouth. Active famotidine (PEPCID) 20 MG tablet Take 1 Tablet by mouth 2 times daily as needed for Heartburn. 4 Active gabapentin (NEURONTIN) 300 MG capsule Take 1 capsule by mouth 3 (three) times a day. 4 Active glipiZIDE (GLUCOTROL) 5 MG tablet Take 1 tablet by mouth daily. 4 Active hydrALAZINE (APRESOLINE) 25 MG tablet hydralazine 25 mg tablet Active spironolactone (ALDACTONE) 25 MG tablet Take 1 tablet by mouth daily. 4 Active pantoprazole (PROTONIX) 40 MG tablet Take 40 mg by mouth. 4 Active metroNIDAZOLE (METROGEL) 1 % gel Apply to face daily 4 Active metoprolol succinate (TOPROL-XL) 50 MG 24 hr tablet Take 2 tablets by mouth daily. 4 Active methocarbamoL (ROBAXIN) 750 MG tablet TAKE ONE TABLET BY MOUTH THREE TIMES A DAY DIRECTED FOR 7 DAYS 4 Active metFORMIN (GLUCOPHAGE-XR) 500 MG 24 hr tablet Take 4 Tablets by mouth daily (with breakfast). 4 Active melatonin 10 mg Tab Take by mouth. Activ e losartan (COZAAR) 100 MG tablet Take 1 tablet by mouth daily. 4 Active hydroCHLOROthia zide 25 MG tablet Take 1 tablet by mouth daily. 4 Active hydrocortisone 1 % cream Apply to affected areas twice daily as needed for itching. Avoid eyes. 4 01/25/20 25 Active lancets 30 gauge Misc 1 Stick by Does not apply route daily. 4 Active losartan-hydroC HLOROthiazide (HYZAAR) 100-12.5 mg per tablet Take 1 tablet by mouth every morning. 4 Active ANTACID-ANTIGAS 200-200-20 mg/5 mL Susp TAKE 15ML 1 TABLESPOON) BY MOUTH 4 TIMES DAILY NEEDED FOR HEARTBURN, ASHLEY'S ESOPAHGUS) Active benzonatate (TESSALON) 100 MG capsule Take 2 capsules (200 mg total) by mouth 3 (three) times a day as needed for cough. 21 capsule 5 Active Active Problems Problem Noted Date Diagnosed Date Benign essential hypertension 06/23/2024 GERD (gastroesophageal reflux disease) Osteoarthritis of left knee 06/23/2024 Restless leg syndrome 06/23/2024 DM (diabetes mellitus), type 2 with neurological complications 05/04/2024 Lumbar herniated disc 05/04/2024 Overview (06/23/2024): left sided S/P TKR (total knee replacement) 05/20/2022 Overview (06/23/2024): right Combined forms of age-related cataract of both e yes 05/15/2022 Disorder of left rotator cuff 05/15/2022 Paroxysmal atrial fibrillation 05/04/2020 Overview (06/23/2024): Arthur Hypercholesteremia 04/07/2020 Obstructive sleep apnea 07/15/2018 Overview (06/23/2024): [facility] Home Polysomnogram: Date 07/12/2018; AHI 61, Unclassified apneas 0; Obstructive apneas 132; Central apneas 1; Mixed apneas 0; hypopneas 122; average oxygen saturation 90% (lowest 77% with saturations <88% for 5% or more of study) [facility] Polysomnogram treatment study. Date 08/24/2018. SE 76 [...] and hypopneas; with sleep related hypoventilation by 2018 home polysomnogram. - 08/24/2018 Pre-study ESS 9. 3/4 RLS symptoms. - CPAP @ 10 corrective. 08/30. [facility] DM (diabetes mellitus), type 2 with peripheral vascular complications 07/05/2017 DM (diabetes mellitus), type 2 with renal compli cations 07/05/2017 Fatty liver 07/05/2017 Ashley's esophagus with dysplasia 06/24/2017 Social History Tobacco Use Types Packs/Day Years Used Date Smoking Tobacco: Former Cigarettes Smokeless Tobacco: Never Tobacco Cessation:Counseling Given: Not Answered Education Answer Date Recorded Are you interested [...] on file Sexual Orientation Not on file Last Filed Vital Signs Vital Sign Reading Time Taken Comments Blood Pressure 155/96 06/23/2024 11:25 AM EST Pulse 56 06/23/2024 11:25 AM EST Temperature 36.6 C (97.8 F) 06/23/2024 11:25 AM EST Respiratory Rate 18 06/23/2024 11:25 AM EST Oxygen Saturation 98% 06/23/2024 11:25 AM EST Inhaled Oxygen Concentration - - Weight - - Height - - Body Mass Index - - Plan of Treatment Health Maintenance Due Date Last Done Comments CREATININE LEVEL 1955 POTASSIUM LEVEL 1955 DEPRESSION SCREENING 1967 SMOKING Hx and SMOKELESS TOBACCO SCREENING 1968 HEPATITIS C SCREENING 1973 COLOGUARD 2000 COLONOSCOPY 2000 COLORECTAL CANCER SCREENING 2000 FIT TEST 2000 FOBT 2000 SIGMOIDOSCOPY 2000 VIRTUAL COLONOSCOPY 2000 ZOSTER VACCINES (1 of 2) 2005 RSV VACCINE (1 - Risk 60-74 years 1-dose series) 2015 ABDOMINAL AORTIC ANEURYSM (AAA) SCREENING 2020 COVID-19 VACCINE ( season) 2024 06/16/2022, 04/21/2021, 09/07/2020, Additional history exists HEMOGLOBIN A1C 09/10/2024 03/12/2024 DIABETIC EYE EXAM 11/17/2024 11/18/2023, 05/28/2022 BLOOD PRESSURE 12/21/2024 06/23/2024 Adult Td,Tdap Booster 09/05/2030 09/05/2020, 012 PNEUMOCOCCAL VACCINES (50+ years) Completed 03/25/2024, 07/28/2021, 06/24/2018 HEPATITIS A VACCINES Aged Out No long er eligible based on patient's age to complete this topic HIB VACCINES Aged Out No longer eligi ble based on patient's age to complete this topic MENINGOCOCCAL VACCINES (ACWY) Aged Out No longer eligible based on patient's age to complete this topic MENINGOCOCCAL VACCINES (B) Aged Out N o longer eligible based on patient's age to complete this topic Medical Devices Not on file Insurance [employer] RE[employer] Care Teams Storage Garage Attendant Relationship Specialty Start Date End Date Prabhjot Mcduffie MD [address] [place] [id number] PCP - General 10/11/22 Additional Source Comments The information contained in this document represents components of the legal health record. It is not the complete legal health record.[facility]
--- OUTSIDE RECORDS SUMMARY | 2025-01-22 13:21 | XMS_ITS ---
Author Name [facility] Organization Unknown Results Test Name/Text Value Interpretation Date Range Source Glucose Bld-mCnc 166.0 mg/dL Normal 09/30/2024 70 - 199 [facility] Citation Ref Lab Test The technical components of [place] [address] CLIA # [id number] Normal 10/02/2024 [facility] Clinical Information IN CYTO Normal 10/02/2024 [facility] Citation Ref Lab Test The technical components of this case were performed at [address] [address] CLIA # [id number] Normal 10/02/2024 [facility] Glucose Bld-mCnc 184.0 mg/dL Normal 09/30/2024 70 - 199 [facility] History of Medication Use Medication Directions Dispensed Refills Start Date End Date Status HYDROmorphone (DILAUDID) injection 0.5 mg 0.5 mg, intravenous, Every 5 min PRN, severe pain or when therapies for moderate pain were not effective, Starting on Sat09/30/24 at 1003, For 4 doses, Recovery (only) 5 active labetalol (NORMODYNE) injection 5 mg 5 mg, intravenous, Every 10 min PRN, high blood pressure, sbp >180 hold for hr <60, Starting on Sat09/30/24 at 1003, For 4 doses, Recovery (only), As needed for: -SBP GREATER than 180 mmHg -HOLD for pulse LESS than 60bpm 5 active ondansetron ODT (ZOFRAN-ODT) disintegrating tablet 4 mg [Order 1 Start] Name: ondansetron ODT (ZOFRAN-ODT) disintegrating tablet 4 mg Signed Summary: 4 mg, oral, Every 8 hours PRN, vomiting, nausea, Starting on Sat09/30/24 at 1003, Recovery (only), -Give IV if patient is unable to take orally. -If inadequate response within 30 minutes, proceed to next-li 5 active oxyCODONE (ROXICODONE) immediate release tablet 5 mg 5 mg, oral, Every 4 hours PRN, moderate pain or when therapies for mild pain were not effective, Starting on Sat09/30/24 at 1003, For 2 doses, Recovery (only) 5 active prochlorperazine (COMPAZINE) tablet 10 mg [Order 1 Start] Name: prochlorperazine (COMPAZINE) tablet 10 mg Signed Summary: 10 mg, oral, Every 6 hours PRN, nausea, vomiting, Starting on Sat09/30/24 at 1003, Recovery (only), 1st Line Option: -Give IV or IM if patient is unable to take orally. -If inadequate response within 30 minutes, proceed 5 active sodium chloride 0.9 % flush 10 mL [Order 1 Start] Name: Insert peripheral IV Signed Summary: STAT, Once, On Sat09/30/24 at 0603, For 1 occurrence, Preprocedure [Order 1 End] [Order 2 Start] Name: Maintain IV access Signed Summary: Until discontinued, Starting on Sat09/30/24 at 0603, Until Specified, Preprocedure [Order 2 End] [Order 5 active amLODIPine (NORVASC) 10 mg tablet Take 1 tablet (10 mg total) by mouth 1 (one) time each day. 5 active glipiZIDE (GLUCOTROL) 5 mg tablet TAKE ONE TABLET BY MOUTH EVERY DAY 5 active hydroCHLOROthiazide (HYDRODIURIL) 25 mg tablet Take 2 tablets (50 mg total) by mouth 1 (one) time each day. 5 active atorvastatin (LIPITOR) 20 mg tablet TAKE ONE TABLET BY MOUTH EVERY DAY 5 active metoprolol succinate (TOPROL-XL) 50 mg 24 hr tablet TAKE TWO TABLETS BY MOUTH EVERY DAY 5 active spironolactone (ALDACTONE) 25 mg tablet TAKE ONE TABLET BY MOUTH EVERY DAY 5 active pantoprazole (PROTONIX) 40 mg EC tablet TAKE ONE TABLET BY MOUTH TWICE A DAY ; DO NOT CRUSH, CHEW, OR SPLIT 5 active gabapentin (NEURONTIN) 600 mg tablet Take 1 tablet (600 mg total) by mouth 2 (two) times a day. 5 active losartan (COZAAR) 100 mg tablet TAKE ONE TABLET BY MOUTH EVERY DAY 5 active metFORMIN XR (GLUCOPHAGE-XR) 500 mg 24 hr tablet TAKE FOUR TABLETS BY MOUTH EVERY DAY 5 active albuterol HFA (ProAir HFA) 90 mcg/actuation inhaler Inhale 2 puffs by mouth every 4 (four) hours if needed for wheezing or shortness of breath. 5 active fluticasone propionate (FLONASE) 50 mcg/actuation nasal spray Administer 2 sprays into each nostril 1 (one) time each day. Shake gently. Before first use, prime pump. After use, clean tip and replace cap. 5 active aluminum-magnesium hydroxide-simethicone (MAALOX) 200-200-20 mg/5 mL suspension Take 15 mL by mouth 4 times daily as needed (heartburn, castro's esopahgus). 4 active famotidine (PEPCID) 20 mg tablet Take 1 Tablet by mouth 2 times daily as needed for Heartburn. 4 active methocarbamoL (ROBAXIN) 750 mg tablet TAKE ONE TABLET BY MOUTH THREE TIMES A DAY DIRECTED FOR 7 DAYS 4 active lancets 30 gauge misc 1 Stick by Does no t apply route daily. 9 active apixaban (ELIQUIS) 5 mg tablet Take 1 Tablet by mouth 2 times daily. active benzonatate (TESSALON) 100 mg capsule Take 1 capsule (100 mg total) by mouth 3 (three) times a day if needed for cough. Do not crush or chew. active melatonin 10 mg tablet Take by mouth. active Allergies Allergen Reaction Severity Comment Documented Date Source Statu s MORPHINE NAUSEA AND VOMITING 01/25/2022 [facility] active DIPHENHYDRAMINE HCL OTHER Confusion 07/05/2017 [facility] active LISINOPRIL COUGH 06/24/2017 [facility] active LATEX RASH [facility] Problems Problem Status Onset Date Problem Type Date of Resolution Source S/P TKR (total knee replacement) active 2022-05-10 1 ProblemAct [facility] DM (diabetes mellitus), type 2 with peripheral vascular complications [place] [place], [facility] V28) active 2017-06-11 6 ProblemAct [facility] Castro's esophagus active 2024-04-11 5 ProblemAct [facility] DM (diabetes mellitus), type 2 with renal complications ([facility] [place], [facility] V28) active 2017-06-11 6 ProblemAct [facility] Microalbuminuria active 2017-06-11 6 ProblemAct [facility] DM (diabetes mellitus), type 2 with neurological complications ([facility] V24, [facility] V28) active 2024-04-11 5 ProblemAct [facility] Hypercholesteremia active 2020-03-11 9 ProblemAct [facility] Lumbar herniated disc active 2024-04-11 5 ProblemAct [facility] Pain active EncounterDiagnosisAct [facility] Castro's esophagus with dysplasia active 2017-06-10 5 ProblemAct [facility] Polyp of colon active 2017-06-10 5 ProblemAct [facility] Fatty liver active 2017-06-11 6 ProblemAct [facility] Obesity (BMI 30.0-34.9) active 2018-06-10 5 ProblemAct [facility] DUNCAN (nonalcoholic steatohepatitis) active 2017-06-11 6 ProblemAct [facility] Lung nodule active EncounterDiagnosisAct [facility] Renal cyst active 2017-06-11 6 ProblemAct [facility] Erectile dysfunction active 2017-06-11 6 ProblemAct [facility] Paroxysmal atrial fibrillation ([facility] V[facility], [facility] V28) active 2020-04-11 5 ProblemAct [facility] Obstructive sleep apnea active 5 ProblemAct [facility] Hypertension active 2024-04-11 5 ProblemAct [facility] Immunizations Vaccine Date Source Lot Number Status Influenza trivalent, 0.5mL ( Fluad) 65yo and older 03/25/2024 [facility] [id number] completed Pneumococcal conjugate 20 va lent (Prevnar 20, PCV 20) 2mo and older 03/25/2024 [facility] [id number] comple bella Influenza trivalent, 0.5mL ( Fluad) 65yo and older 03/13/2023 [facility] [id number] completed Pfizer (ages 12 & older) Biv alent, COVID-19 06/16/2022 [facility] [id number] completed Influenza trivalent, 0.5mL ( Fluad) 65yo and older 04/10/2022 [facility] completed Pneumococcal conjugate 13 va lent (Prevnar 13, PCV13) 2mo and older 07/28/2021 [facility] [id number] complet ed Pfizer SARS-CoV-2 COVID-19, mRNA, LNP-S, preservative free 04/21/2021 [facility] [id number] completed Tdap Tetanus diptheria acell ular pertussis (Boostrix; Adacel) 7yo and older 09/05/2020 [facility] [id number] completed Hepatitis B (Dbnmqms-X-Orefy , Recombivax HB-Adult) 19yo and older 07/06/2020 [facility] K2L79 complet ed Influenza trivalent, 0.5mL ( Fluad) 65yo and older 04/07/2020 [facility] [id number] completed Hepatitis B (Zicywpb-N-Ackol , Recombivax HB-Adult) 19yo and older 03/09/2020 [facility] K2L79 complet ed Hepatitis B (Drgklwv-R-Qlksc , Recombivax HB-Adult) 19yo and older 02/03/2020 [facility] K2L79 complet ed Influenza Quadravalent, MDCK , 0.5ml, preservative free (Flucelvax) 6mo and older 06/15/2019 [facility] [id number] completed Pneumococcal polysaccharide 23 valent (Pneumovax 23) 2yo and older 06/24/2018 [facility] [id number] com pleted Hepatitis B (Recombivax HB-D ialysis) 18yo and older 03/05/2016 [facility] completed Influenza trivalent, 0.5mL, preservative free (Fluarix; FluLaval; Fluzone) ages 6mo and older (Afluria) 3 years and older 02/23/2016 [id number] completed Tdap Tetanus diptheria acell ular pertussis (Boostrix; Adacel) 7yo and older 02/15/2012 [facility] completed Encounters Encounter Type Encounter Reason Primary Diagnosis Location Date Ambulatory Pain, unspecified Pain, unspecified [facility] 09/30/2024 Care Team Organization Name Specialty Phone Email Start Date End Da te [facility] Primary Care 10/02/2024 [facility] Primary Care 09/30/2024 [facility] Primary Care 04/17/2022 01/27/2024
--- OUTSIDE RECORDS SUMMARY | 2025-01-22 13:21 | XMS_ITS | Clinical Summary ---
Author Organization [facility] Address [address] [place] [address] [address] [place] [address] Care Team Providers Care Computer Repair Engineer Name Role Phone Prabhjot Mcduffie MD Primary [...] Relevant to Health Maintenance Results * COLONOSCOPY: [facility] (08/17/2015 12:00 AM EST) Anatomical Region Laterality Modality Endoscopy 08/17/2015 Narrative 08/17/2015 12:00 AM EST Refer to Fovea for result details Legacy Procedure: COLONOSCOPY: [facility] Procedure Note Provider, Bella, - 10/04/2022 Refer to Fovea for result details Legacy Procedure: COLONOSCOPY: [facility] Historical Provider ENDOSCOPY PROCEDURE ORDER PORTIA Final Result from Last 3 Months or Most Recently Relevant to Health Maintenance Insurance [employer] Member Subscriber Plan / Payer (Ef fective 2023-Present) Name:Mj Arthur Relation to Subscriber:Self Name:Mj Arthur Payer ID:Not on file Group ID:Not on file Type:Not on file Address: [address] [id number] [employer] [place] [phone] Care Teams Computer Repair Engineer Relationship Specialty Start Date End Date Prabhjot Mcduffie MD PCP - General Internal Medicine 05/28/22
== END 2025-01-22 13:19 | disposition home or self-care (01) ==
LOC: HO.CT 13:18
PROVIDERS: PCP Pediatrics; Visit Provider Neurological Surgery
DX: M48.07 Spinal stenosis, lumbosacral region (principal); Z98.890 Other specified postprocedural states
CPT/HCPCS: 72131

== ENCOUNTER → 2025-01-22 13:22 | Outpatient (BNV) | payer MEDICARE, SELFPAY | PROVIDERS: PCP Pediatrics; Visit Provider Specialist | DX: R91.8 Other nonspecific abnormal finding of lung field (principal); Z98.890 Other specified postprocedural states | CPT/HCPCS: 72131 ==

== ENCOUNTER 2025-02-12 13:07 | Outpatient (AMB) | payer MEDICARE, SELFPAY ==
--- OUTSIDE RECORDS SUMMARY | 2025-02-12 13:21 | XMS_ITS | Clinical Summary ---
Author Organization [facility] Address [address] [place] [address] Care Team Providers Care Group Teacher Name Role Phone Unavailable Primary Care Provider Unavailabl e Encounters Date Type Department Care Team Description 01/18/2025 Orders Only [facility] [address] [facility] [address] [place] [address] Maximiliano uHa MD from Last 3 Months Social History [...] 4:13 PM EDT) Creatinine, Urine 79.0 mg/dL [facility] Microalbumin Urine Random 137.0(H) 0.0 - 29.0 mg/L [facility] Microalbumin/Cre atinine Ratio 173(H) <30 mg/g creat [facility] 01/18/2025 4:13 PM EDT 01/18/2025 5:28 PM EDT us Maximiliano Hua MD LAB URINE ORDERABLES Final Resul t Performing Organization Address [facility] Co de Phone Number [facility] [address] [place] [address] * (ABNORMAL) Basic Metabolic Panel (01/18/2025 4:06 PM EDT) Sodium 134 133 - 145 mmol/L [facility] Potassium 4.9 3.5 - 5.5 mmol/L [facility] Chloride 100 96 - 110 mmol/L [facility] Bicarbonate (CO2) 30 21 - 32 mmol/L [facility] Anion Gap 4 3 - 11 [facility] Glucose 122(H) 70 - 100 mg/dL [facility] BUN 14 5 - 25 mg/dL [facility] Creatinine Serum 0.85 0.70 - 1.30 mg/dL [facility] eGFR 94 >=60 mL/min/1. 73m2 [facility] Comment:Calculation based on the Chronic Kidney Disease Epidemiology Collaboration (CKD-EPI) equation refit without adjustment for race. BUN/Creatinine Ratio 16.5 [facility] Calcium 9.5 8.5 - 10.5 mg/dL [facility] 01/18/2025 4:06 PM EDT 01/18/2025 5:27 PM EDT us Maximiliano Hua MD LAB BLOOD ORDERABLES Final Resul t Performing Organization Address [facility] Co de Phone Number [facility] [address] [place] [address] from Last 3 Months
--- OUTSIDE RECORDS SUMMARY | 2025-02-12 13:22 | XMS_ITS | Encounter Summary ---
Author Organization [facility] Address [address] [place] [address] Care Team Providers Care Environmental Advisor Name Role Phone Horacio Mcduffie MD Primary Care Provider [phone] Reason for Visit * Reason Onset Date Comments patient call 01/08/2025 Encounter Details Date Type Department Care Team (Late st Contact Info) Description 01/08/2025 Telephone Gastroenterology - [place] [address] [place] [address] Emile Kirby MD [address] [place] [address] Social History Tobacco Use Types Packs/Day Years [...] PM EDT Office Visit Adult Medicine - [place] [address] [place] [address] Annalise Carvajal NP [address] [place], [place] documented as of this encounter Visit Diagnoses Not on filedocumented in this encounter Care Teams Environmental Advisor Relationship Specialty Start Date End Date Horacio Mcduffie MD [address] [place] [id number] PCP - General Internal Medicine 09/12/20 documented as of this encounter
--- OUTSIDE RECORDS SUMMARY | 2025-02-12 13:22 | XMS_ITS | Clinical Summary ---
Author Organization [facility] [facility] Address [address] [place] [address] 7 [place] [address] Care Team Providers Care Gwot Ia/Ilo Intelligence Support Name Role Phone Prabhjot Mcduffie MD Primary [...] series) 08/02/2016 01/31/2016 COVID-19 Vaccine ( season) 2025 06/16/2022, 04/21/2021, 09/07/2020, Additional history exists Influenza [...] Relevant to Health Maintenance Results * COLONOSCOPY: [facility] (08/17/2015 12:00 AM EST) Anatomical Region Laterality Modality Endoscopy 08/17/2015 Narrative 08/17/2015 12:00 AM EST Refer to Fovea for result details Legacy Procedure: COLONOSCOPY: [facility] Procedure Note Provider, Bella, - 10/04/2022 Refer to Fovea for result details Legacy Procedure: COLONOSCOPY: [facility] Historical Provider ENDOSCOPY PROCEDURE ORDER PORTIA Final Result from Last 3 Months or Most Recently Relevant to Health Maintenance Insurance [employer] Member Subscriber Plan / Payer (Ef fective 2023-Present) Name:Mj Arthur Relation to Subscriber:Self Name:Mj Arthur Payer ID:Not on file Group ID:Not on file Type:Not on file Address: [address] [id number] [employer] [place] [phone] Care Teams Gwot Ia/Ilo Intelligence Support Relationship Specialty Start Date End Date Prabhjot Mcduffie MD PCP - General Internal Medicine 05/28/22
--- OUTSIDE RECORDS SUMMARY | 2025-02-12 13:22 | XMS_ITS | Clinical Summary ---
Author Organization [facility] Address [address] [place] [phone] Phone Care Team Providers Care Ged Teacher Name Role Phone Horacio Mcduffie MD Primary Care Provider [phone] Allergies Active Allergy Reactions Criticality Noted Date Comments Diphenhydramine Hcl Other 07/05/2017 Confusion Latex Rash 06/24/2017 Lisinopril Cough 06/24/2017 Morphine Nausea And Vomiting 01/25/2022 Medications aluminum-magnesium hydroxide-simethic one (MAALOX) 200-200-20 mg/5 mL suspension Take 15 mL by mouth 4 times daily as needed (heartburn, castro's esopahgus). 10/02/19 24 Active apixaban (ELIQUIS) 5 mg tablet Take 1 Tablet by mouth 2 times daily. Active famotidine (PEPCID) 20 mg tablet Take 1 Tablet by mouth 2 times daily as needed for Heartburn. 10/02/19 24 Active melatonin 10 mg tablet Take by mouth. Activ e methocarbamoL (ROBAXIN) 750 mg tablet TAKE ONE [...] Active fluticasone propionate (FLONASE) 50 mcg/actuation nasal sprayIndications:R UQ abdominal pain,Subacute cough Administer 2 sprays into each nostril 1 (one) time each day. Shake gently. Before first use, prime pump. After use, clean tip and replace cap. 16 g 5 07/01/19 25 026 Active albuterol HFA (ProAir HFA) 90 mcg/actuation inhalerIndications :RUQ abdominal pain,Subacute cough Inhale 2 puffs by mouth every 4 (four) hours if needed for wheezing or shortness of breath. 18 g 11 07/01/19 25 026 Active gabapentin (NEURONTIN) 600 mg tablet Take 1 tablet (600 mg total) by mouth 2 (two) times a day. 180 each 1 08/05/19 25 Active glipiZIDE (GLUCOTROL) 5 mg tablet TAKE [...] 1 (one) time each day. 360 tablet 1 10/03/19 25 Active atorvastatin (LIPITOR) 20 mg tablet TAKE ONE TABLET BY MOUTH EVERY DAY 90 tablet 1 12/02/19 25 Active spironolactone (ALDACTONE) 25 mg tablet TAKE ONE TABLET BY MOUTH EVERY DAY 90 tablet 1 12/02/19 25 Active metoprolol succinate (TOPROL-XL) 50 mg 24 hr tablet TAKE TWO TABLETS BY MOUTH EVERY DAY 180 tablet 1 12/02/19 25 Active hydroCHLOROthiazid e (HYDRODIURIL) 25 mg tabletIndications: Primary hypertension TAKE ONE TABLET BY MOUTH EVERY DAY 90 tablet 1 12/02/19 25 Active pantoprazole (PROTONIX) 40 mg EC tablet TAKE ONE TABLET BY MOUTH TWICE A DAY ; DO NOT CRUSH, CHEW, OR SPLIT 180 tablet 12/05/19 25 Active ondansetron ODT (ZOFRAN-ODT) 4 mg disintegrating tabletIndications: Nausea Dissolve 1 tablet (4 mg total) on top of the tongue every 8 (eight) hours if needed for nausea or vomiting. 30 tablet 2 12/23/19 25 Active losartan (COZAAR) 100 mg tablet TAKE ONE TABLET BY MOUTH EVERY DAY 90 tablet 1 01/01/20 25 Active cyclobenzaprine (FLEXERIL) 10 mg tablet Take 1 tablet (10 mg total) by mouth 3 (three) times a day if needed for muscle spasms. 30 tablet 01/19/20 25 025 Active benzonatate (TESSALON) 100 mg capsule Take 1 capsule (100 mg total) by mouth 3 (three) times a day if needed for cough. 20 capsule 01/19/20 25 Active benzonatate (TESSALON) 100 mg capsule TAKE ONE CAPSULE BY MOUTH THREE TIMES A DAY NEEDED FOR COUGH ; DO NOT CRUSH OR CHEW 20 capsule 12/22/19 25 025 Discontin ued(Reord er) Active Problems Problem Noted Date Diagnosed Date Abnormal computed tomography angiography of head 01/18/2025 Castro's esophagus 05/04/2024 DM (diabetes mellitus), type 2 with neurological complications (CMS/HCC V24, CMS/HCC V28) 05/04/2024 Uncontrolled hypertension 05/04/2024 Lumbar herniated disc 05/04/2024 Overview (05/04/2024): left sided S/P TKR (total knee replacement) 05/20/2022 Overview (05/04/2024): right Paroxysmal atrial fibrillation (CMS/HCC V24, CMS /HCC V28) 05/04/2020 Overview (05/04/2024): [place] Hypercholesteremia 04/07/2020 Obstructive sleep apnea 07/15/2018 Overview (05/04/2024): [facility] Home Polysomnogram: Date 07/12/2018; AHI 61, Unclassified [...] vascular complications (CMS/HCC V24, CMS/HCC V28) 07/05/2017 DM (diabetes mellitus), type 2 with renal complications (CMS/HCC V24, CMS/[facility] V28) 07/05/2017 Erectile dysfunction 07/05/2017 Fatty liver 07/05/2017 Microalbuminuria 07/05/2017 DUNCAN (nonalcoholic steatohepatitis) 07/05/2017 Renal cyst 07/05/2017 Overview (05/04/2024): Left [address] 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 Polyp of colon 06/24/2017 Encounters Date Type Department Care Team Description 01/21/2025 Telephone Adult [address] [phone] Horacio Mcduffie MD 01/19/2025 Telephone Adult [address] [phone] Horacio Mcduffie MD 01/18/2025 4:14 PM EDT - 01/18/2025 11:59 PM EDT Hospital Encounter [address] [address] Cervicalgia Discharge Disposition: Home or Self Care 01/18/2025 3:15 PM EDT Office Visit Adult [address] [phone] Renan Sloan PA Dizziness (Primary Dx); Vertebral artery stenosis, unspecified laterality; Abnormal computed tomography angiography of head; DM (diabetes mellitus), type 2 with peripheral vascular complications ([facility] V24, [facility] V28); Hypercholesteremia; Cervicalgia; Uncontrolled hypertension 01/18/2025 Telephone Adult [facility] [address] [place] [phone] Horacio Mcudffie MD 01/08/2025 Telephone Gastroenterology [facility] 175 [facility] 175 [facility] [address] [place] [phone] Emile Kirby MD 12/15/2024 7:39 AM EDT Anesthesia Event [facility] Endoscopy [address] [place] [phone] Marco Humphrey MD 12/15/2024 6:47 AM EDT - 12/15/2024 11:59 PM EDT Hospital Encounter [facility] Endoscopy [address] [place] [phone] Emile Kirby MD Burton, Heather, CRNA Gomes, Sheldon B, MD Castro's esophagus without dysplasia Discharge Disposition: Home or Self Care 12/08/2024 9:00 AM EDT Office Visit Pulmonology [facility] [address] [phone] Amanda Hemphill MD Lung nodule (Primary Dx) 12/04/2024 1:21 PM EDT - 12/04/2024 11:59 PM EDT Hospital Encounter [facility] CT Scan [address] [place] [phone] Lung nodule Discharge Disposition: Home or Self Care 12/01/2024 Telephone Adult [facility] [address] [place] [phone] Horacio Mcduffie MD 11/26/2024 Telephone Pulmonology [facility] [address] [phone] Zaina Mendez MA 11/25/2024 9:00 AM EDT Office Visit Adult Medicine [facility] [address] [place] [phone] Annalise Carvajal NP Lumbar herniated disc (Primary Dx) 11/25/2024 Telephone Adult [facility] [address] [place] [phone] Horacio Mcduffie MD 11/19/2024 4:00 PM EDT Office Visit Nephrology [facility] [address] [place] [phone] Maximiliano Hua MD Hypertension, unspecified type (Primary Dx); DM (diabetes mellitus), type 2 with peripheral vascular complications (CMS/HCC V24, CMS/HCC V28); Obstructive sleep apnea 11/18/2024 Telephone Gastroenterology [facility] 175 [facility] 175 [facility] [address] [place] [address] Sandra Saleem LPN 11/17/2024 Telephone Adult [address] [phone] Horacio Mcduffie MD from Last 3 Months Immunizations Name Administration Dates Next Due Hepatitis B (Caahbnm-M-Qjgcj , Recombivax HB-Adult) 19yo and older 07/06/2020,03/09/2020,02/03/2020 [...] mellitus), t ype 2 with neurological complications ([facility]) Insomnia 07/05/2017 DX:Insomnia DUNCAN (nonalcoholic steatohepatitis) 07/05/2017 DX:DUNCAN (nonalcoholic steatohepatitis) Prostate nodule 07/05/2017 DX:Prostate nodu le DM (diabetes mellitus), type 2 with peripheral vascular complications (CMS/HCC V24, CMS/HCC V28) 07/05/2017 DX:DM (diabetes mellitus), type 2 with peripheral vascular complications (HCC) Fatty liver 07/05/2017 DX:Fatty liver Renal cyst 07/05/2017 DX:Renal cyst; C OMMENT: Left [address] Diverticulosis 07/05/2017 DX:Diverticulosi s Osteoarthritis [...] Sign Reading Time Taken Comments Blood Pressure 156/64 01/18/2025 3:07 PM EDT Pulse 53 01/18/2025 3:07 PM EDT Temperature 36.7 C (98.1 F) 01/18/2025 3:07 PM EDT Respiratory Rate 18 12/15/2024 8:16 AM EDT Oxygen Saturation 99% 12/15/2024 8:16 AM EDT Inhaled Oxygen Concentration - - Weight 106 kg (232 lb 9.6 oz) 01/18/2025 3:07 PM EDT Height 177.8 cm (5' 10 ) 01/18/2025 3:07 PM EDT Body Mass Index 33.37 01/18/2025 3:07 PM EDT Plan of Treatment Upcoming Encounters Date Type Department Care Team (Late st Contact Info) Description 02/25/2025 3:00 PM EDT Office Visit Adult Medicine - [address] [phone] Annalise Carvajal NP [address] [place] [address] Health Maintenance Due Date Last Done Comments Diabetes: Annual Retina Eye Exam 1965 Zoster Vaccines (1 of 2) 1974 RSV Immunization Adult Patients (1 - Risk 60-74 years 1-dose series) 2015 Abdominal Aortic Aneurysm (AAA) Screen 05/19/2022 Medicare Annual Wellness Visit 05/19/2022 Social Influencers of Health Screening 05/19/2022 Depression Screening 06/10/2024 COVID-19 Vaccine ( season) 2025 06/16/2022, 04/21/2021, 09/07/2020, Additional history exists Influenza Vaccine (#1) 2025 , 03/13/2023, 06/16/2022, Additional history exists Diabetes: Annual Foot Exam 03/25/2025 03/25/2024 Diabetes: Blood Sugar Control Test (HGBA1C) 07/21/2025 01/18/2025, 03/12/2024, 03/12/2024 Colorectal Cancer Screening: Colonoscopy 08/16/2025 08/17/2015, 08/17/2015 Falls Risk Assessment 12/15/2025 12/15/2024 Diabetes: Annual Urine Albumin-Creatinine Ratio (uACR) 01/18/2026 01/18/2025, 03/12/2024 Diabetes: Annual GFR (Glomerular Filtration Rate) 01/18/2026 01/18/2025, 09/24/2024, 07/01/2024, Additional history exists Hypertension/CHF/CAD Annual BMP Blood Test 01/18/2026 01/18/2025, 09/24/2024, 07/01/2024, Additional history exists Cholesterol Screening (Lipid Panel) 01/18/2030 01/18/2025, 03/12/2024, 03/12/2024 DTaP,Tdap,and Td Vaccines (3 - [...] this topic Medical Devices Implanted Type Area Precision Lens Grinder Apprentice Device Identifier Shelf Expiration Date Model / Serial / Lot Marker Dirk Perezlock - Sn/A - [id number] Implanted:Qt y: 1 on 09/30/2024 by Amanda Hemphill MD at [facility] Imaging Implants Left: Lung [employer] [id number] 08/06/2028 [id number] / N/A / [id number] Description:LLL Implants Implants Right: Chest Wall inspired sleep apnea device Description:Implanted device for sleep apnea Joints Knee Joints Knee Bilateral: Knee Joints Shoulder Joints Shoulder Right: Shoulder Procedures Procedure Name Priority Date/Time Associated Diagnosis Comments XR CERVICAL SPINE 4-5 VIEWS Routine 01/18/2025 4:22 PM EDT Cervicalgia MICROALBUMIN CREATININE URINE RATIO Routine 01/18/2025 4:13 PM EDT Hypertension, unspecified type BASIC METABOLIC PANEL Routine 01/18/2025 4:06 PM EDT Hypertension, unspecified type LIPID PANEL WITH REFLEX TO DIRECT LDL Routine 01/18/2025 4:06 PM EDT Hypercholesteremia HEMOGLOBIN A1C Routine 01/18/2025 4:06 PM EDT Type 2 diabetes mellitus with diabetic microalbuminuria, without long-term current use of insulin ([facility] V24, [facility] V28) EXTERNAL CT REPORT 01/17/[address] REPORT 01/17/2025 EGD Routine 12/15/2024 7:55 AM EDT Castro's esophagus without dysplasia TISSUE EXAM Routine 12/15/2024 7:48 AM EDT Castro's esophagus without dysplasia CT CHEST WO CONTRAST Routine 12/04/2024 1:43 PM EDT Lung nodule MR THORACIC SPINE WO AND W CONTRAST Routine 12/01/2024 8:51 AM EDT HEPATITIS C ANTIBODY Routine 07/15/2024 9:45 AM EST Subacute cough RUQ abdominal pain Intercostal pain Transaminitis DIABETES FOOT EXAM Routine 03/25/2024 COLONOSCOPY Routine 08/17/2015 from Last 3 Months or Most Recently Relevant to Health Maintenance Results * XR Cervical Spine 4-5 Views (01/18/2025 4:22 PM EDT) Anatomical Region Laterality Modality Spine, C-spine Radiographic Marie ging 01/19/2025 10:2 7 AM EDT Narrative 01/19/2025 10:28 AM EDT Cervical spine, 5 views. History pain. Vertebral bodies are maintained in height. There is narrowing of the disc spaces at C5-6 and C6-7 levels, there are hypertrophic degenerative changes in the uncovertebral joints with osteophytic narrowing of the right C5-C6 and C7 neural foramina and left C4 and C7 neural foramina. There are post operative changes in the shoulders bilaterally. No acute fractures or dislocations. CONCLUSIONS: Multilevel bony and discs degenerative changes. Post operative changes in the shoulders. -------- FINAL REPORT -------- Dictated By: Klaudia Villalba Dictated Date: 01/19/2025 10:27 ET Assigned Physician: Klaudia Villalba Reviewed and Electronically Signed By: Klaudia Villalba Signed Date: 01/19/2025 10:28 ET Workstation ID: [id number] Transcribed By: Self Edit Transcribed Date: 01/19/2025 10:27 ET Procedure Note Klaudia Villalba MD - 01/19/2025 Cervical spine, 5 views. History pain. Vertebral bodies are maintained in height. There is narrowing of the discspaces at C5-6 and C6-7 levels, there are hypertrophic degenerativechanges in the uncovertebral joints with osteophytic narrowing of theright C5-C6 and C7 neural foramina and left C4 and C7 neural foramina.There are post operative changes in the shoulders bilaterally. No acutefractures or dislocations. CONCLUSIONS: Multilevel bony and discs degenerative changes. Postoperative changes in the shoulders. -------- FINAL REPORT -------- Dictated By: Klaudia Villalba Dictated Date: 01/19/2025 10:27 ET Assigned Physician: Klaudia Villalba Reviewed and Electronically Signed By: Klaudia Villalba Signed Date: 01/19/2025 10:28 ET Workstation ID: [id number] Transcribed By: Self Edit Transcribed Date: 01/19/2025 10:27 ET us Renan YANG IMG XR PROCEDURES Final Result * (ABNORMAL) Microalbumin creatinine urine ratio (01/18/2025 4:13 PM EDT) Creatinine, Urine 79.0 mg/dL LAB CHEMISTRY METHOD 01/18/2025 6:29 PM EDT [facility] Microalb, Ur 137.0(H) 0.0 - 29.0 mg/L LAB CHEMISTRY METHOD 01/18/2025 6:29 PM EDT [facility] Microalb/Crea t Ratio 173(H) <30 mg/g creat LAB CHEMISTRY METHOD 01/18/2025 6:29 PM EDT [facility] Urine Urine specimen obtained by clean catch procedure / Unknown Non-blood Collection / Unknown 01/18/2025 4:13 PM EDT 01/18/2025 4:13 PM EDT us Maximiliano Hua MD LAB URINE ORDERABLES Final Res ult [facility] [address] [place] [address], * Lipid panel with reflex to direct LDL (01/18/2025 4:06 PM EDT) Cholesterol 119 0 - 200 mg/dL LAB CHEMISTRY METHOD 01/18/2025 6:52 PM EDT [facility] Triglycerides 137 0 - 150 mg/dL LAB CHEMISTRY METHOD 01/18/2025 6:52 PM EDT [facility] HDL 42 >=40 mg/dL LAB CHEMISTRY METHOD 01/18/2025 6:52 PM EDT [facility] LDL Calculated 50 0 - 100 mg/dL LAB CHEMISTRY METHOD 01/18/2025 6:52 PM EDT [facility] Comment:Estimated LDL Calcul ated using equation: Total cholesterol - HDL cholesterol - (Triglycerides/5) VLDL Cholesterol Harish 27.4 mg/dL LAB CHEMISTRY METHOD 01/18/2025 6:52 PM EDT [facility] Non HDL Chol. (LDL+VLDL) 77 <145 mg/dL LAB CHEMISTRY METHOD 01/18/2025 6:52 PM EDT [facility] Chol/HDL Ratio 2.8 0.0 - 4.4 LAB CHEMISTRY METHOD 01/18/2025 6:52 PM EDT [facility] Blood Venous blood specimen / Unknown Venipuncture / Unknown 01/18/2025 4:06 PM EDT 01/18/2025 4:06 PM EDT Annalise Carvajal NP LAB BLOOD ORDERABLES Final Res ult Performing Organization Address City/[facility]/ZIP Co de Phone Number [facility] [address] [place] [address], * (ABNORMAL) Hemoglobin A1c (01/18/2025 4:06 PM EDT) Hemoglobin A1C 7.4(H) <6.5 % LAB CHEMISTRY METHOD 01/18/2025 9:17 PM EDT [facility] Mean Bld Glu Estim. 166 mg/dL LAB CHEMISTRY METHOD 01/18/2025 9:17 PM EDT [facility] Blood Venous blood specimen / Unknown Venipuncture / Unknown 01/18/2025 4:06 PM EDT 01/18/2025 4:06 PM EDT us Annalise Carvajal C ARCHITECT LAB BLOOD ORDERABLES Final Res ult [facility] [address] [place] [address], [place] [phone] * (ABNORMAL) Basic metabolic panel (01/18/2025 4:06 PM EDT) Sodium 134 133 - 145 mmol/L LAB CHEMISTRY METHOD 01/18/2025 6:50 PM [facility] Potassium 4.9 3.5 - 5.5 mmol/L LAB CHEMISTRY METHOD 01/18/2025 6:50 PM [facility] Chloride 100 96 - 110 mmol/L LAB CHEMISTRY METHOD 01/18/2025 6:50 PM [facility] CO2 30 21 - 32 mmol/L LAB CHEMISTRY METHOD 01/18/2025 6:50 PM [facility] Anion Gap 4 3 - 11 LAB CHEMISTRY METHOD 01/18/2025 6:50 PM [facility] Glucose 122(H) 70 - 100 mg/dL LAB CHEMISTRY METHOD 01/18/2025 6:50 PM [facility] BUN 14 5 - 25 mg/dL LAB CHEMISTRY METHOD 01/18/2025 6:50 PM [facility] Creatinine 0.85 0.70 - 1.30 mg/dL LAB CHEMISTRY METHOD 01/18/2025 6:50 PM [facility] eGFR 94 >=60 mL/min/1. 73m2 LAB CHEMISTRY METHOD 01/18/2025 6:50 PM [facility] Comment:Calculation based on the Chronic Kidney Disease Epidemiology Collaboration (CKD-EPI) equation refit without adjustment for race. BUN/Creatinine Ratio 16.5 LAB CHEMISTRY METHOD 01/18/2025 6:50 PM [facility] Calcium 9.5 8.5 - 10.5 mg/dL LAB CHEMISTRY METHOD 01/18/2025 6:50 PM [facility] Blood Venous blood specimen / Unknown Venipuncture / Unknown 01/18/2025 4:06 PM EDT 01/18/2025 4:06 PM EDT Maximiliano Hua MD LAB BLOOD ORDERABLES Final Res ult [facility]) [facility] [address] [place] [address], [place] [phone] * External CT Report (01/17/2025) Only the most recent of2 resultswithin the time period is included. Anatomical Region Laterality Modality Computed Tomogra phy Provider [facility] IMG CT PROCEDURES Final Result * EGD Anesthesia - MAC; [facility] ENDOSCOPY (12/15/2024 7:55 AM EDT) Anatomical Region Laterality Modality Endoscopy 12/15/2024 7:40 AM EDT Impressions 12/15/2024 7:56 AM EDT - Normal examined duodenum. - Normal stomach. 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 Biopsied. Recommendation: - Discharge patient to home. - Await pathology results. - Return to GI clinic after studies are complete. Narrative 12/15/2024 7:56 AM EDT [facility] GI Patient Name: Micaela Choudhury Procedure Date: [...] verified by the physician, the nurse, the manager operations and the facility technician in the pre-procedure area in the [...] was minimal. Procedure Code(s): --- Professional --- 04758, Esophagogastroduodenoscopy, flexible, transoral; with biopsy, single or multiple Diagnosis Code(s): --- Professional --- K22.710, Castro's esophagus with low grade dysplasia CPT copyright 2020 [employer]. All rights reserved. The codes documented in this report are preliminary and upon cook roast review may be revised to meet current compliance requirements. Emile Kirby MD 12/15/2024 7:56:25 AM This report has been signed electronically.Emile Kirby MD Number of Addenda: 0 Note Initiated On: 12/15/2024 7:40 AM Scope In: Scope Out: Endoscopy Department at [facility] - [address] [place] [phone] Procedure Note Emile Kirby MD - 12/15/2024 [facility] GI Patient Name: Micaela Choudhury Procedure Date: [...] the physician, the nurse, theanesthetist and the facility technician in the pre-procedure area in the [...] was minimal. Procedure Code(s): --- Professional --- 45077, Esophagogastroduodenoscopy, flexible, transoral; with biopsy, single or multiple Diagnosis Code(s): --- Professional --- K22.710, Castro's esophagus with low gradedysplasia CPT copyright 2020 [employer]. All rights reserved. The codes documented in this report are preliminary and upon cook roast reviewmay be revised to meet current compliance requirements. Emile Kirby MD 12/15/2024 7:56:25 AM This report has been signed electronically.Emile Kirby MD Number of Addenda: 0 Note Initiated On: 12/15/2024 7:40 AM Scope In: Scope Out: Endoscopy Department at [facility] - [address] [place] [phone] IMPRESSION: - Normal examined duodenum. - Normal stomach. - Esophageal mucosal changes secondary toestablished short-segment Castro's disease. Biopsied. Recommendation: - Discharge patient to home. - Await pathology results. - Return to GI clinic after studies are complete. us Emile Kirby MD GI~PROCEDURE ORDERABLES Fin al Result * Tissue exam (12/15/2024 7:48 AM EDT) Final Diagnosis Lower esophagus, biopsy: - Esophageal squamous mucosa with scattered intraepithelial eosinophils (maximum of three intraepithelial eosinophils in a high-power field and reactive epithelial changes including spongiosis and focal basal hyperplasia. - Gastric cardiac type mucosa with patchy chronic inflammation. - No intestinal metaplasia and no dysplasia identified. 12/16/2024 11:20 AM EDT [facility] Gross Description A. Esophagus, lower biopsies: Labeled esophagus, lower . Received in formalin are six irregular pink-white to red mucosal tissue fragments, ranging from 0.2 cm to 0.5 cm in greatest dimension, which are wrapped in paper and submitted in toto in one cassette, six pieces, multiple levels on one slide. VALERY 12/16/2024 11:20 AM EDT [facility] Disclaimer Unless otherwise specified, all tissue is 10% NB formalin fixed and paraffin embedded. 12/16/2024 11:20 AM EDT [facility] Tissue Esophageal structure / Unknown 12/15/2024 7:48 AM EDT 12/15/2024 9:46 AM EDT Emile Kirby MD LAB PATHOLOGY ORDERABLES Fi nal Result [facility] [address] [place] [address], * CT Chest wo Contrast (12/04/2024 1:43 PM EDT) Anatomical Region Laterality Modality Body Computed Tomogra phy 12/07/2024 10:0 0 AM EDT Impressions 12/07/2024 10:14 AM EDT Impression: 1. No significant change in the 9 x 15 mm juxtapleural nodular opacity being followed at the left lung base. An additional follow-up CT is recommended in 6 months. 2. No developing thoracic lymphadenopathy. Telerad CELIA ([id number]) -------- FINAL REPORT -------- Dictated By: Maria Teresa Matthew Dictated Date: 12/07/2024 10:00 ET Assigned Physician: Maria Teresa Matthew Reviewed and Electronically Signed By: Maria Teresa Matthew Signed Date: 12/07/2024 10:14 ET Workstation ID: [id number] Transcribed By: Self Edit Transcribed Date: 12/07/2024 10:00 ET Narrative 12/07/2024 10:14 AM EDT History: Lung nodule, greater than 8 mm. Comparison: 07/29/24, PET/CT 08/27/24 Technique: Helical volumetric imaging of the thorax was performed without IV contrast. DLP: 629.33 mGy/cm Likeed[employer] Iterative reconstruction technique Findings: The poorly defined, [...] was performed withoutIV contrast. DLP: 629.33 mGy/cm [employer] Iterative reconstruction technique Findings: The poorly defined, [...] 2. No developing thoracic lymphadenopathy. Telerad PA ([id number]) -------- FINAL REPORT -------- Dictated By: Maria Teresa Matthew Dictated Date: 12/07/2024 10:00 ET Assigned Physician: Maria Teresa Matthew Reviewed and Electronically Signed By: Maria Teresa Matthew Signed Date: 12/07/2024 10:14 ET Workstation ID: [id number] Transcribed By: Self Edit Transcribed Date: 12/07/2024 10:00 ET us Amanda Hemphill MD IMG CT PROCEDURES Final Re sult * MR Thoracic Spine wo and w Contrast (12/01/2024 8:51 AM EDT) Anatomical Region Laterality Modality T-spine, Spine Magnetic Resonan ce Historical Provider IMG MRI PROCEDURES Final Result * Hepatitis C antibody (07/15/2024 9:45 AM EST) [facility] Hepatitis C Antibody Negative Negative LAB CHEMISTRY METHOD 07/15/2024 5:17 PM EST [facility] Blood Venous blood specimen / Unknown Venipuncture / Unknown 07/15/2024 9:45 AM EST 07/15/2024 9:45 AM EST Venkata Cortes MD LAB BLOOD ORDERABLES Fin al Result [facility] [address] [place] [address], * Diabetes Foot Exam (03/25/2024) [facility] Diabetes: Annual Foot Exam Abstracted Historical Provider HEALTH MAINTENANCE Final Result * Colonoscopy (08/17/2015) [facility] Colonoscopy Abstracted, no interpretation Anatomical Region Laterality [...] currently active code status orders. Care Teams Ged Teacher Relationship Specialty Start Date End Date Horacio Mcduffie MD [address] [place] [id number] PCP - General Internal Medicine 09/12/20
--- OUTSIDE RECORDS SUMMARY | 2025-02-12 13:22 | XMS_ITS | Clinical Summary ---
Author Organization [facility] Address [address] [address] Phone Care Team Providers Care Machine Repairman Name Role Phone Prabhjot Mcduffie MD Primary [...] 1 tablet by mouth daily. 4 Active lancets 30 gauge Misc 1 Stick [...] needed for cough. 21 capsule 5 Active hydrocortisone 1 % cream Apply to affected areas twice daily as needed for itching. Avoid eyes. 4 01/25/20 Active Problems Problem Noted Date Diagnosed Date [...] 04/07/2020 Obstructive sleep apnea 07/15/2018 Overview (06/23/2024): [facility] Home Polysomnogram: Date 07/12/2018; AHI 61, Unclassified [...] 2015 ABDOMINAL AORTIC ANEURYSM (AAA) SCREENING 2020 HEMOGLOBIN A1C 09/10/2024 03/12/2024 DIABETIC EYE EXAM 11/17/2024 11/18/2023, 05/28/2022 BLOOD PRESSURE 12/21/2024 06/23/2024 INFLUENZA VACCINE (#1) 2025 , 03/25/2024, 03/13/2023, Additional history exists COVID-19 VACCINE ( season) 2025 06/16/2022, 04/21/2021, 09/07/2020, Additional history exists Adult Td,Tdap Booster 09/05/2030 09/05/2020, 012 PNEUMOCOCCAL [...] HMO REPLACEMENT [employer] [place] [id number] Care Teams Machine Repairman Relationship Specialty Start Date End Date Prabhjot Mcduffie MD [address] [place] [id number] PCP - General 10/11/22 Additional Source Comments The information contained in this document represents components of the legal health record. It is not the complete legal health record.[facility]
--- NOTE | 2025-02-12 13:28 | HO.SPINEOV ---
Intake Visit Reasons: CT f/up Intake Note: Mr. Arthur is here to F/u on the results to his CT. City Surveyor Required: No Allergies morphine Allergy (Severe, Verified 02/12/25 13:28) Unknown LATEX Allergy (Unknown, Uncoded 01/17/25 10:01) itching Assessment & Plan Assessment & Plan (1) Spinal arachnoid cyst: Code(s): G96.198 - Other disorders of meninges, not elsewhere classified Category: Medical Plan: Dear colleague, On 02/12/2025, I saw for follow-up Mj Arthur. As you know he suffering from 2 different problems. First she is having a right thoracic radiculopathy which is aggravated by inspirations. MRI shows a most likely arachnoid cyst around the T8 area with deviation of the spinal cord towards the left side. Secondly, he is having radiating pain down his right leg in an L5 distribution with progressive footdrop during walking and standing. I obtained a CT of the lumbar spine together better visualization of the L5 foramen that was stenotic on the MRI. He has a remote history of a lumbar decompression and I wanted to make sure that this was not the area he was operated on. The CT scan shows severe right L5 foraminal stenosis and an auto fusion of the L5-S1 segment. There is a defect on the left L5 lamina. I think he is an excellent candidate for an L5 foraminotomy to decompress the right L5 nerve root for which he is scheduled on March 18, 2025. He has a history of AFib that was treated with ablation. He has not suffered from anymore arrhythmias. It is unclear for me and to the patient why he is still on Eliquis. I told him to this continue his Eliquis 3 days prior to surgery. As far as the thoracic pain. I will refer him for a T8 nerve block. If this provides relief then we know for sure that the T8 nerve root is involved in his pain. We may reconsider doing a decompressive surgery at that time. Thank you for allowing me take care of your patient. I spent 35 minutes in his consult to review imaging and discussing plan of care. Shiraz Coto MD, PhD Spine Fellowship Trained Neurosurgeon Director, [facility] (2) Neuroforaminal stenosis of lumbosacral spine: Code(s): M48.07 - Spinal stenosis, lumbosacral region Category: Medical Plan fd Orders: Referrals Pain Management Referral G96.198 - Other disorders of meninges, not elsewhere classified Coding Level of Care Code Est Pt Level 4 (14629) Diagnoses Spinal arachnoid cyst G96.198 Neuroforaminal stenosis of lumbosacral spine M48.07
== END 2025-02-12 14:11 | disposition home or self-care (01) ==
LOC: HO.HNS 13:08
PROVIDERS: PCP Pediatrics; Visit Provider Neurological Surgery
DX: G96.198 Other disorders of meninges, not elsewhere classified (principal); M48.07 Spinal stenosis, lumbosacral region
CPT/HCPCS: 99214

== ENCOUNTER → 2025-02-12 13:07 | Outpatient (BNVA) | payer MEDICARE, SELFPAY | PROVIDERS: PCP Pediatrics; Visit Provider Neurological Surgery | DX: G93.0 Cerebral cysts (principal); M48.07 Spinal stenosis, lumbosacral region | CPT/HCPCS: 99212 ==

== ENCOUNTER 2025-03-18 06:46 | Day surgery (SDC) | payer MEDICARE, SELFPAY ==
--- OUTSIDE RECORDS SUMMARY | 2024-06-23 12:56 | XMS_ITS | Encounter Summary ---
Author Organization [facility] Address [address] [facility] [address] [place] [address] Phone Care Team Providers Care Seed Expert Name Role Phone Prabhjot Mcduffie MD Primary Care Provider + Encounter Details Date Type Department Care Team (Late st Contact Info) Description 06/23/2024 11:56 AM EST Hospital Encounter [facility] [address] [place] [address] Agata Shipman FNP 12 [place] [address] [email or web address] Social History Tobacco Use Types Packs/Day [...] clinician's provided indication for this examination in [facility]: Pain; right side mid back and rib [...] clinician's provided indication for this examination in [facility]:Pain; right side mid back and rib pain, [...] on filedocumented in this encounter Care Teams Seed Expert Relationship Specialty Start Date End Date Prabhjot Mcduffie MD [address] [place] [address] PCP - General 10/11/22 documented as of this encounter Additional Source Comments The information contained in this document represents components of the legal health record. It is not the complete legal health record.[facility]
--- OUTSIDE RECORDS SUMMARY | 2025-02-15 09:06 | XMS_ITS | Clinical Summary ---
Author Organization [facility] Facility Address [address] [place] [address] Care Team Providers Care Clerical Production Worker Name Role Phone Unavailable Primary Care Provider Unavailabl e Encounters Date Type Department Care Team Description 01/18/2025 Orders Only [facility] [address] [facility] [address] [place] [address] Maximiliano Hua MD from Last [...] 4:13 PM EDT) Creatinine, Urine 79.0 mg/dL [facility] Microalbumin Urine Random 137.0(H) 0.0 - 29.0 mg/L [facility] Microalbumin/Cre atinine Ratio 173(H) <30 mg/g creat [facility] 01/18/2025 4:13 PM EDT 01/18/2025 5:28 PM EDT us Maximiliano Hua MD LAB URINE ORDERABLES Final Resul t Performing Organization Address [facility] Co de Phone Number [facility] [address] [place] [address] * (ABNORMAL) Basic Metabolic Panel (01/18/2025 4:06 PM EDT) Sodium 134 133 - 145 mmol/L [facility] Potassium 4.9 3.5 - 5.5 mmol/L [facility] Chloride 100 96 - 110 mmol/L [facility] Bicarbonate (CO2) 30 21 - 32 mmol/L [facility] Anion Gap 4 3 - 11 [facility] Glucose 122(H) 70 - 100 mg/dL [facility] BUN 14 5 - 25 mg/dL [facility] Creatinine Serum 0.85 0.70 - 1.30 mg/dL [facility] eGFR 94 >=60 mL/min/1. 73m2 [facility] Comment:Calculation based on the Chronic Kidney Disease Epidemiology Collaboration (CKD-EPI) equation refit without adjustment for race. BUN/Creatinine Ratio 16.5 [facility] Calcium 9.5 8.5 - 10.5 mg/dL [facility] 01/18/2025 4:06 PM EDT 01/18/2025 5:27 PM EDT us Maximiliano Hua MD LAB BLOOD ORDERABLES Final Resul t Performing Organization Address [facility] Co de Phone Number [facility] [address] [place] [address] from Last 3 Months
--- OUTSIDE RECORDS SUMMARY | 2025-02-15 09:06 | XMS_ITS | Clinical Summary ---
Author Organization [facility] Address [address] [address] Phone Care Team Providers Care Weeder Name Role Phone Prabhjot Mcduffie MD Primary [...] 04/07/2020 Obstructive sleep apnea 07/15/2018 Overview (06/23/2024): [facility] Home Polysomnogram: Date 07/12/2018; AHI 61, Unclassified [...] REPLACEMENT [employer] [place] [id number] Care Teams Weeder Relationship Specialty Start Date End Date Prabhjot Mcduffie MD [address] [place] [id number] PCP - General 10/11/22 Additional Source Comments The information contained in this document represents components of the legal health record. It is not the complete legal health record.[facility]
--- OUTSIDE RECORDS SUMMARY | 2025-02-15 09:06 | XMS_ITS | Clinical Summary ---
Author Organization [employer] [facility] Address [address] [place] [address] [address] [place] [address] Care Team Providers Care Statistical Methods Teacher Name Role Phone Prabhjot Mcduffie MD Primary [...] Relevant to Health Maintenance Results * COLONOSCOPY: [facility] (08/17/2015 12:00 AM EST) Anatomical Region Laterality Modality Endoscopy 08/17/2015 Narrative 08/17/2015 12:00 AM EST Refer to Fovea for result details Legacy Procedure: COLONOSCOPY: [facility] Procedure Note Provider, Bella, - 10/04/2022 Refer to Fovea for result details Legacy Procedure: COLONOSCOPY: [facility] Historical Provider ENDOSCOPY PROCEDURE ORDER [place] Final Result from Last 3 Months or Most Recently Relevant to Health Maintenance Insurance [employer] Member Subscriber Plan / Payer (Ef fective 2023-Present) Name:Mj Arthur Relation to Subscriber:Self Name:Mj Arthur Payer ID:Not on file Group ID:Not on file Type:Not on file Address: [address] [id number] [employer] [place] [phone] Care Teams Statistical Methods Teacher Relationship Specialty Start Date End Date Prabhjot Mcduffie MD PCP - General Internal Medicine 05/28/22
--- OUTSIDE RECORDS SUMMARY | 2025-02-15 09:06 | XMS_ITS | Clinical Summary ---
Author Organization [facility] Address [address] [place] [phone] Phone Care Team Providers Care After School Program Teacher Name Role Phone Horacio Mcduffie MD Primary Care Provider [phone] Allergies Active Allergy Reactions Criticality Noted Date [...] 04/07/2020 Obstructive sleep apnea 07/15/2018 Overview (05/04/2024): [facility] Home Polysomnogram: Date 07/12/2018; AHI [...] type 2 with renal complications (CMS/HCC V24, CMS/[facility] V28) 07/05/2017 Erectile dysfunction 07/05/2017 Fatty liver 07/05/2017 Microalbuminuria 07/05/2017 DUNCAN (nonalcoholic steatohepatitis) 07/05/2017 Renal cyst 07/05/2017 Overview (05/04/2024): Left [address] 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 Polyp of colon 06/24/2017 Encounters Date Type Department Care Team Description 01/21/2025 Telephone Adult [address] [phone] Horacio Mcduffie MD 01/19/2025 Telephone Adult [address] [phone] Horacio Mcduffie MD 01/18/2025 4:14 PM EDT - 01/18/2025 11:59 PM EDT Hospital Encounter [address] [phone] Cervicalgia Discharge Disposition: Home or Self Care 01/18/2025 3:15 PM EDT Office Visit Adult [address] [phone] Renan Sloan PA Dizziness (Primary Dx); Vertebral artery stenosis, unspecified laterality; Abnormal computed tomography angiography of head; DM (diabetes mellitus), type 2 with peripheral vascular complications ([facility] V24, [facility] V28); Hypercholesteremia; Cervicalgia; Uncontrolled hypertension 01/18/2025 Telephone Adult [facility] [address] [place] [phone] Horacio Mcduffie MD 01/08/2025 Telephone Gastroenterology [facility] 175 [facility] 175 [facility] [address] [place] [phone] Emile Kirby MD 12/15/2024 7:39 AM EDT Anesthesia Event [facility] Endoscopy [address] [place] [phone] Marco Humphrey MD 12/15/2024 6:47 AM EDT - 12/15/2024 11:59 PM EDT Hospital Encounter [facility] Endoscopy [address] [place] [phone] Emile Kirby MD Burton, Heather, CRNA Gomes, Sheldon B, MD Castro's esophagus without dysplasia Discharge Disposition: Home or Self Care 12/08/2024 9:00 AM EDT Office Visit Pulmonology [facility] [address] [phone] Amanda Hemphill MD Lung nodule (Primary Dx) 12/04/2024 1:21 PM EDT - 12/04/2024 11:59 PM EDT Hospital Encounter [facility] CT Scan [address] [place] [phone] Lung nodule Discharge Disposition: Home or Self Care 12/01/2024 Telephone Adult [facility] [address] [place] [phone] Horacio Mcduffie MD 11/26/2024 Telephone Pulmonology [facility] [address] [phone] Zaina Mendez MA 11/25/2024 9:00 AM EDT Office Visit Adult Medicine [facility] [address] [place] [phone] Annalise Carvajal NP Lumbar herniated disc (Primary Dx) 11/25/2024 Telephone Adult [facility] [address] [place] [phone] Horacio Mcduffie MD 11/19/2024 4:00 PM EDT Office Visit Nephrology [facility] [address] [place] [phone] Maximiliano Hua MD Hypertension, unspecified type (Primary Dx); DM (diabetes mellitus), type 2 with peripheral vascular complications (CMS/HCC V24, CMS/HCC V28); Obstructive sleep apnea 11/18/2024 Telephone Gastroenterology [facility] 175 [facility] 175 [facility] [address] [place] [phone] Sandra Saleem LPN 11/17/2024 Telephone Adult [address] [phone] Horacio Mcduffie MD from Last 3 Months Immunizations Name Administration Dates Next Due Hepatitis B (Bjeqeaz-K-Akmho , Recombivax HB-Adult) 19yo and older 07/06/2020,03/09/2020,02/03/2020 [...] mellitus), t ype 2 with neurological complications ([facility]) Insomnia 07/05/2017 DX:Insomnia DUNCAN (nonalcoholic steatohepatitis) 07/05/2017 [...] PM EDT Office Visit Adult Medicine - [address] [phone] Annalise Carvajal NP [address] [place] [phone] Health Maintenance Due Date Last Done Comments [...] this topic Medical Devices Implanted Type Area Hanging Flags Decorator Device Identifier Shelf Expiration Date Model / Serial / Lot Marker Dirk Perezlock - Sn/A - [id number] Implanted:Qt y: 1 on 09/30/2024 by Amanda Hemphill MD at [facility] Imaging Implants Left: Lung [employer] [id number] 08/06/2028 [id number] / N/A / [id number] Description:LLL Implants Implants Right: Chest Wall inspired [...] microalbuminuria, without long-term current use of insulin ([facility] V24, [facility] V28) EXTERNAL CT REPORT 01/17/[address] [...] Signed Date: 01/19/2025 10:28 ET Workstation ID: [id number] Transcribed By: Self Edit Transcribed Date: 01/19/2025 [...] Signed Date: 01/19/2025 10:28 ET Workstation ID: [id number] Transcribed By: Self Edit Transcribed Date: 01/19/2025 10:27 ET us Renan YANG IMG XR PROCEDURES Final Result * (ABNORMAL) Microalbumin creatinine urine ratio (01/18/2025 4:13 PM EDT) Creatinine, Urine 79.0 mg/dL LAB CHEMISTRY METHOD 01/18/2025 6:29 PM EDT [facility] Microalb, Ur 137.0(H) 0.0 - 29.0 mg/L LAB CHEMISTRY METHOD 01/18/2025 6:29 PM EDT [facility] Microalb/Crea t Ratio 173(H) <30 mg/g creat LAB CHEMISTRY METHOD 01/18/2025 6:29 PM EDT [facility] Urine Urine specimen obtained by clean catch procedure / Unknown Non-blood Collection / Unknown 01/18/2025 4:13 PM EDT 01/18/2025 4:13 PM EDT us Maximiliano Hua MD LAB URINE ORDERABLES Final Res ult [facility] [address] [place] [address], * Lipid panel with reflex to direct LDL (01/18/2025 4:06 PM EDT) Cholesterol 119 0 - 200 mg/dL LAB CHEMISTRY METHOD 01/18/2025 6:52 PM EDT [facility] Triglycerides 137 0 - 150 mg/dL LAB CHEMISTRY METHOD 01/18/2025 6:52 PM EDT [facility] HDL 42 >=40 mg/dL LAB CHEMISTRY METHOD 01/18/2025 6:52 PM EDT [facility] LDL Calculated 50 0 - 100 mg/dL LAB CHEMISTRY METHOD 01/18/2025 6:52 PM EDT [facility] Comment:Estimated LDL Calcul ated using equation: Total cholesterol - HDL cholesterol - (Triglycerides/5) VLDL Cholesterol Harish 27.4 mg/dL LAB CHEMISTRY METHOD 01/18/2025 6:52 PM EDT [facility] Non HDL Chol. (LDL+VLDL) 77 <145 mg/dL LAB CHEMISTRY METHOD 01/18/2025 6:52 PM EDT [facility] Chol/HDL Ratio 2.8 0.0 - 4.4 LAB CHEMISTRY METHOD 01/18/2025 6:52 PM EDT [facility] Blood Venous blood specimen / Unknown Venipuncture / Unknown 01/18/2025 4:06 PM EDT 01/18/2025 4:06 PM EDT Annalise Carvajal NP LAB BLOOD ORDERABLES Final Res ult Performing Organization Address City/[facility]/ZIP Co de Phone Number [facility] [address] [place] [address], * (ABNORMAL) Hemoglobin A1c (01/18/2025 4:06 PM EDT) Hemoglobin A1C 7.4(H) <6.5 % LAB CHEMISTRY METHOD 01/18/2025 9:17 PM EDT [facility] Mean Bld Glu Estim. 166 mg/dL LAB CHEMISTRY METHOD 01/18/2025 9:17 PM EDT [facility] Blood Venous blood specimen / Unknown Venipuncture / Unknown 01/18/2025 4:06 PM EDT 01/18/2025 4:06 PM EDT us Annalise Carvajal [employer]EL[employer] LAB BLOOD ORDERABLES Final Res ult [facility] [address] [place] [address], [place] [phone] * (ABNORMAL) Basic metabolic panel (01/18/2025 4:06 PM EDT) Sodium 134 133 - 145 mmol/L LAB CHEMISTRY METHOD 01/18/2025 6:50 PM [facility] Potassium 4.9 3.5 - 5.5 mmol/L LAB CHEMISTRY METHOD 01/18/2025 6:50 PM [facility] Chloride 100 96 - 110 mmol/L LAB CHEMISTRY METHOD 01/18/2025 6:50 PM [facility] CO2 30 21 - 32 mmol/L LAB CHEMISTRY METHOD 01/18/2025 6:50 PM [facility] Anion Gap 4 3 - 11 LAB CHEMISTRY METHOD 01/18/2025 6:50 PM [facility] Glucose 122(H) 70 - 100 mg/dL LAB CHEMISTRY METHOD 01/18/2025 6:50 PM [facility] BUN 14 5 - 25 mg/dL LAB CHEMISTRY METHOD 01/18/2025 6:50 PM [facility] Creatinine 0.85 0.70 - 1.30 mg/dL LAB CHEMISTRY METHOD 01/18/2025 6:50 PM [facility] eGFR 94 >=60 mL/min/1. 73m2 LAB CHEMISTRY METHOD 01/18/2025 6:50 PM [facility] Comment:Calculation based on the Chronic Kidney Disease Epidemiology Collaboration (CKD-EPI) equation refit without adjustment for race. BUN/Creatinine Ratio 16.5 LAB CHEMISTRY METHOD 01/18/2025 6:50 PM [facility] Calcium 9.5 8.5 - 10.5 mg/dL LAB CHEMISTRY METHOD 01/18/2025 6:50 PM [facility] Blood Venous blood specimen / Unknown Venipuncture / Unknown 01/18/2025 4:06 PM EDT 01/18/2025 4:06 PM EDT Maximiliano Hua MD LAB BLOOD ORDERABLES Final Res ult [facility] [address] [place] [address], [place] [phone] * External CT Report (01/17/2025) Only the most recent of2 resultswithin the time period is included. Anatomical Region Laterality Modality Computed Tomogra phy Provider [facility] IMG CT PROCEDURES Final Result * EGD Anesthesia - MAC; [facility] ENDOSCOPY (12/15/2024 7:55 AM EDT) Anatomical Region Laterality Modality Endoscopy 12/15/2024 7:40 AM EDT Impressions 12/15/2024 7:56 AM EDT - Normal examined duodenum. - Normal stomach. 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 Biopsied. Recommendation: - Discharge patient to home. - Await pathology results. - Return to GI clinic after studies are complete. Narrative 12/15/2024 7:56 AM EDT [facility] GI Patient Name: Micaela Choudhury Procedure [...] verified by the physician, the nurse, the baseball hand sewer and the software test technician in the pre-procedure area in the [...] was minimal. Procedure Code(s): --- Professional --- 77992, Esophagogastroduodenoscopy, flexible, transoral; with biopsy, single or multiple Diagnosis Code(s): --- Professional --- K22.710, Castro's esophagus with low grade dysplasia CPT copyright 2020 [employer]. All rights reserved. The codes documented in this report are preliminary and upon lens gauger review may be revised to meet current compliance requirements. Emile Kirby MD 12/15/2024 7:56:25 AM This report has been signed electronically.Emile Kirby MD Number of Addenda: 0 Note Initiated On: 12/15/2024 7:40 AM Scope In: Scope Out: Endoscopy Department at [facility] - [address] [place] [phone] Procedure Note Emile Kirby MD - 12/15/2024 [facility] GI Patient Name: Micaela Choudhury Procedure [...] the physician, the nurse, theanesthetist and the software test technician in the pre-procedure area in the [...] was minimal. Procedure Code(s): --- Professional --- 37550, Esophagogastroduodenoscopy, flexible, transoral; with biopsy, single or multiple Diagnosis Code(s): --- Professional --- K22.710, Castro's esophagus with low gradedysplasia CPT copyright 2020 [employer]. All rights reserved. The codes documented in this report are preliminary and upon lens gauger reviewmay be revised to meet current compliance requirements. Emile Kirby MD 12/15/2024 7:56:25 AM This report has been signed electronically.Emile Kirby MD Number of Addenda: 0 Note Initiated On: 12/15/2024 7:40 AM Scope In: Scope Out: Endoscopy Department at [facility] - [address] [place] [phone] IMPRESSION: - Normal examined duodenum. - Normal [...] no dysplasia identified. 12/16/2024 11:20 AM EDT [facility] Gross Description A. Esophagus, lower biopsies: Labeled esophagus, lower . Received in formalin are six irregular pink-white to red mucosal tissue fragments, ranging from 0.2 cm to 0.5 cm in greatest dimension, which are wrapped in paper and submitted in toto in one cassette, six pieces, multiple levels on one slide. VALERY 12/16/2024 11:20 AM EDT [facility] Disclaimer Unless otherwise specified, all tissue is 10% NB formalin fixed and paraffin embedded. 12/16/2024 11:20 AM EDT [facility] Tissue Esophageal structure / Unknown 12/15/2024 7:48 AM EDT 12/15/2024 9:46 AM EDT Emile Kirby MD LAB PATHOLOGY ORDERABLES Fi nal Result [facility]) [facility] [address] [place] [address], * CT Chest wo Contrast (12/04/2024 1:43 [...] 2. No developing thoracic lymphadenopathy. Telerad CELIA ([id number]) -------- FINAL REPORT -------- Dictated By: Maria Teresa Matthew Dictated Date: 12/07/2024 10:00 ET Assigned Physician: Maria Teresa Matthew Reviewed and Electronically Signed By: Maria Teresa Matthew Signed Date: 12/07/2024 10:14 ET Workstation ID: [id number] Transcribed By: Self Edit Transcribed Date: 12/07/2024 10:00 ET Narrative 12/07/2024 10:14 AM EDT History: Lung nodule, greater than 8 mm. Comparison: 07/29/24, PET/CT 08/27/24 Technique: Helical volumetric imaging of the thorax was performed without IV contrast. DLP: 629.33 mGy/cm [employer] Iterative reconstruction technique Findings: The poorly defined, [...] was performed withoutIV contrast. DLP: 629.33 mGy/cm Tangler Iterative reconstruction technique Findings: The poorly defined, [...] 2. No developing thoracic lymphadenopathy. Telerad PA ([id number]) -------- FINAL REPORT -------- Dictated By: Maria Teresa Matthew Dictated Date: 12/07/2024 10:00 ET Assigned Physician: Maria Teresa Matthew Reviewed and Electronically Signed By: Maria Teresa Matthew Signed Date: 12/07/2024 10:14 ET Workstation ID: [id number] Transcribed By: Self Edit Transcribed Date: 12/07/2024 10:00 ET us Amanda Hemphill MD IMG CT PROCEDURES Final Re sult * MR Thoracic Spine wo and w Contrast (12/01/2024 8:51 AM EDT) Anatomical Region Laterality Modality T-spine, Spine Magnetic Resonan ce Historical Provider IMG MRI PROCEDURES Final Result * Hepatitis C antibody (07/15/2024 9:45 AM EST) [facility] Hepatitis C Antibody Negative Negative LAB CHEMISTRY METHOD 07/15/2024 5:17 PM EST [facility] Blood Venous blood specimen / Unknown Venipuncture / Unknown 07/15/2024 9:45 AM EST 07/15/2024 9:45 AM EST Venkata Cortes MD LAB BLOOD ORDERABLES Fin al Result [facility] [address] [place] [address], * Diabetes Foot Exam (03/25/2024) [facility] Diabetes: Annual Foot Exam Abstracted Historical Provider HEALTH MAINTENANCE Final Result * Colonoscopy (08/17/2015) [facility] Colonoscopy Abstracted, no interpretation Anatomical Region [...] currently active code status orders. Care Teams After School Program Teacher Relationship Specialty Start Date End Date Horacio Mcduffie MD [address] [place] [id number] PCP - General Internal Medicine 09/12/20
[2025-03-11 10:14] VITALS: BP 145/65; PULSE 50; RESP 18; O2SAT 97; BMI 32.7
--- NOTE | 2025-03-16 15:26 | P.DS_ITS ---
DS: Providers Provider Date of Service: 03/18/25 Date of discharge: 03/18/25 Primary care physician: Prabhjot Mcduffie MD Admitting clinician: Shiraz Coto DS: Diagnosis Discharge Diagnosis (1) Neuroforaminal stenosis of lumbosacral spine: Status: Acute DS: Summary Time Attestation Discharge Coordination Time (in mins): 6 Quality: Safe Use of Opioids Does Pt have an Active Cancer Diagnosis on the Problem List?: No Quality: Stroke Does the patient have a stroke diagnosis?: No Physical Exam Vital Signs: Vital Signs: Last Vital Signs Pulse 50 03/11/25 10:14 Resp 18 03/11/25 10:14 BP 145/65 H 03/11/25 10:14 Pulse Ox 97 03/11/25 10:14 O2 Del Method Room Air 03/11/25 10:14 BMI result Body Mass Index 32.7 Discharge Plan Discharge Patient Disposition: Home, Self-Care Referrals: Prabhjot Mcduffie MD [Primary Care Provider, Medical] - 1 Week Discharge Medications: New docusate sodium [Colace] 100 mg capsule 100 mg PO BID Qty: 20 0RF oxycodone 5 mg tablet 5 mg PO Q4H PRN (Reason: pain) Qty: 20 0RF Rx Instructions: Partial Fill upon patient request. Continued cyclobenzaprine 10 mg tablet 10 mg PO TID PRN (Reason: muscle spasm) gabapentin 600 mg tablet 600 mg PO QPM atorvastatin 20 mg tablet 20 mg PO BEDTIME metoprolol succinate 50 mg tablet extended release 24 hr 100 mg PO QAM spironolactone 25 mg tablet 25 mg PO BEDTIME amlodipine 10 mg tablet 10 mg PO QAM pantoprazole 40 mg tablet,delayed release (DR/EC) 40 mg PO BEDTIME hydrochlorothiazide 25 mg tablet 25 mg PO QAM albuterol sulfate 90 mcg/actuation HFA aerosol inhaler 2 puff inhalation Q4H PRN (Reason: wheezing) ondansetron 4 mg tablet,disintegrating 4 mg PO Q8H PRN (Reason: nausea/vomiting) losartan 100 mg tablet 100 mg PO QAM fluticasone propionate 50 mcg/actuation spray,suspension 2 spray intranasal DAILY metformin 500 mg tablet extended release 24 hr 1,000 mg PO BID glipizide 5 mg tablet 5 mg PO QAM tiotropium bromide [Spiriva with HandiHaler] 18 mcg Capsule, W/Inhalation Device 1 cap INHALATION DAILY Rx Instructions: puncture 1 cap using device; one dose = 2 inhalations (has not been filled yet due to cost)-not currently using benzonatate 100 mg capsule 100 mg PO TID PRN (Reason: cough) melatonin 10 mg Tablet 20 mg PO BEDTIME Held Eliquis 5 mg tablet 5 mg PO BID Hold Instructions: Resume on 03/21/25. You may resume Eliquis 3 days after surgery Discharge Orders: Discharge Order (Routine); Ordered 03/18/25 Ordered By: Renan Castro Diet: Advance to usual diet Activity on Discharge: As tolerated Activity Restrictions/Additional Instructions: After your spinal surgery we ask you to observe the following restrictions/guidelines: Activity: It is normal to feel some discomfort as you increase your activity, but that will improve with time. We ask you avoid heavy lifting or acitivities that cause pain. As a general rule, 8lbs is a safe limit for lifting right after surgery. Walk as much as you feel comfortable but not to exhaustion. You will feel extra tired the first few days after surgery. Stay well hydrated. It is OK to walk up and down stairs You may return to driving when you are off narcotics (such as vicodin, oxycodone, dilaudid, etc), and you are back to normal functional capacity. If you have any concerns please check with office before driving. Return to work is specific to each patient and each surgery, so please speak with your doctor/PA at first follow up. Please bring paperwork such as FMLA at that time if you need it filled out. Medications: You may resume Eliquis 3 days after surgery For optimum pain control, it is best to start with a combination of 500 mg of Tylenol every 4 hours with 600 mg of Motrin every 8 hours, and use narcotics as needed in between for breakthrough pain. We will give you a short supply of narcotics after surgery (usually one weeks worth). If you need more please call the office but do not use more than prescribed. You will need to give our office 48 hours notice if you need narcotics refilled and we do not fill narcotics on weekends or evenings. If you are on a narcotic, it is a good idea to take a stool softener such as colace or senna to avoid constipation If you take blood thinner such as aspirin, Plavix, Coumadin, Effient, Eliquis etc for conditions such as Afib, DVT, Pulmonary embolus, coronary disease, stents etc please speak with your surgeon about specific details as to when you can resume these medications. Follow up: Please call the office, , after surgery to arrange a 3 week follow up for wound check. Wound Care: You may remove your dressing on the first day after surgery. ?You may ?leave open to air. Please do not remove the steri strips underneath. they will fall off on their own in one week. IT IS NORMAL FOR THE WOUND TO OOZE OR BE BLOODY FOR A FEW DAYS AFTER SURGERY. ?IF THIS HAPPENS JUST PLACE NEW DRESSING OVER IT TO AVOID STAINING CLOTHES. You may shower on post op day # 1 We ask that you do not let the water soak the wound. If it does get wet, just towel dry lightly. Please do not scrub your incision or place any type of chemical/ointment on the wound. No tub baths, pools or jacuzzis for one month. If you have any leaking or redness from your wound, or fevers, please call office Print Language: [place] Islander
--- NOTE | ~2025-03-18 | FL_ITS ---
EXAMINATION: FL GUIDANCE ONLY HISTORY: Right L5 foraminotomy COMPARISON: None available. TECHNIQUE: Fluoroscopy time: 0.1 minute. Cumulative Dose: 6.91 mGy. DAP: 1.25 Gycm2 Images: 1. FINDINGS: A single fluoroscopic spot film of the lumbar spine in the lateral projection demonstrates a probe directed toward the L5-S1 intervertebral disc space from a posterior approach. FL/FL guidance in OR IMPRESSION: Fluoroscopy during procedure. Please see procedure report for additional information. Electronically signed by: Avery Cunnignham MD 03/18/2025 11:01 AM EDT
[2025-03-18 07:11] VITALS: BP 154/55; PULSE 51; RESP 15; TEMP 36.6; O2SAT 96
--- NOTE | 2025-03-18 07:11 | MHC.SHP ---
Pre-Procedural Eval Section A - 24 Hr Update-Section A only Date of Service: 03/18/25 The patient is an INPATIENT: No Changes since office visit: No Cold of Flu in the past 2 weeks, No New Medical Problems, No Changes in Medication and No Patient answered all questions The patient has been examined within 24 hours of the surgical procedure. The History & Physical has been completed within 30 days and I have reviewed it.: No Section B - Complete if H&P > 30 days Chief Complaint: Other disorders of meninges, not elsewhere Allergies: Allergies Allergy/AdvReac Type Severity Reaction Status Date / Time morphine Allergy Severe projectile Verified 03/11/25 10:06 vomiting latex Allergy Intermediate Hives Verified 03/11/25 10:06 Review of Systems Sugical H&P ROS: Negative: Constitution, Cardiovascular, Respiratory, Neurological, Psychiatric, Hem-Onc, Allergic/Immunologic, Gastrointestinal, Genitourinary, Musculoskeletal, Integumentary, Endocrine and Eyes/Ears/Nose/Throat Exam Surgical H&P Exam: Normal: HEENT, Normal: Heart, Normal: Lungs, Normal: Extremities, Normal: Abdomen, Normal: Skin and Normal: Neurological (Awake, alert, oriented x3) Plan Diagnosis/Plan: Unchanged Right L5 foraminotomy Time Spent With Patient Time: Total time managing care of this patient today ____ minutes.
[2025-03-18] MEDS: Lactated Ringers 1,000 ML 100 ML IVCONT (07:25)
[2025-03-18 07:34] LABS: Glucose, Whole Blood 205 mg/dL (60-115)
--- NOTE | 2025-03-18 07:59 | MHC.SHP ---
Pre-Procedural Eval Section A - 24 Hr Update-Section A only Date of Service: 03/18/25 The patient is an INPATIENT: No Section B - Complete if H&P > 30 days Chief Complaint: Other disorders of meninges, not elsewhere Details of Present Illness: Right leg pain Allergies: Allergies Allergy/AdvReac Type Severity Reaction Status Date / Time morphine Allergy Severe projectile Verified 03/18/25 07:34 vomiting latex Allergy Intermediate Hives Verified 03/18/25 07:34 Review of Systems Sugical H&P ROS: Negative: Constitution, Cardiovascular, Respiratory, Neurological, Psychiatric, Hem-Onc, Allergic/Immunologic, Gastrointestinal, Genitourinary, Musculoskeletal, Integumentary, Endocrine and Eyes/Ears/Nose/Throat Exam Surgical H&P Exam: Normal: HEENT, Normal: Heart, Normal: Lungs, Normal: Extremities, Normal: Abdomen, Normal: Skin and Normal: Neurological (Awake, alert) Plan Diagnosis/Plan: Unchanged I have reviewed the history and physical and performed a pertinent physical examination on my patient. No changes have occurred unless specified. Right L5 foraminotomy Time Spent With Patient Time: Total time managing care of this patient today __4__ minutes.
--- NOTE | 2025-03-18 08:37 | HO.ANESPROP2 ---
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 Only limited by pain PAF: Eliquis, s/p ablation. Follows [facility] cardiology yearly. Stable at 06/2024 office visit. Bradycardia: Baseline HR 40's to 50's. Asymptomatic. No plan for tx per legal officer ANISHA: Inspire implant GERD: ppi controls DM: FBS ~125, A1C = 7.4 Emphysema: albuterol ~ 1 x daily, awaiting symbicort from pharmacy. Follows Jen[facility] Nicholson [facility] Active Problems Active Problems: All Active Problems Status post lumbar spine operative procedure for decompression of spinal cord (Acute) Neuroforaminal stenosis of lumbosacral spine (Acute) Spinal arachnoid cyst (Acute) Past Medical History Medical History Osteoarthritis GERD (gastroesophageal reflux disease) Mild emphysema Pulmonary nodule Renal cyst DUNCAN (nonalcoholic steatohepatitis) Barretts esophagus Sleep apnea Atrial fibrillation Diabetes HTN (hypertension) On anticoagulant therapy Elevated cholesterol Surgical History Surgical History Hx of lumbar discectomy History of esophagogastroduodenoscopy (EGD) H/O colonoscopy History of bronchoscopy History of total bilateral knee replacement History of right shoulder replacement History of cardiac ablation for atrial fibrillation Hx of repair of rotator cuff Social History Social History Use of substances other than those prescribed or required for medical reasons: No Have you been hit, kicked, punched, or otherwise hurt by someone within the past year? If so, by whom?: No Spiritual Healthcare Practices: no Alevism Healthcare Practices: no Cultural Healthcare Practices: no Are you DNR?: No Advance Directives on File: No Poor oral hygiene: No Meds Allergies Allergy/AdvReac Type Severity Reaction Status Date / Time morphine Allergy Severe projectile Verified 03/18/25 07:34 vomiting latex Allergy Intermediate Hives Verified 03/18/25 07:34 Home Medications ?Medication ?Instructions ?Recorded ?Confirmed ?Last Taken ?Type albuterol sulfate 90 mcg/actuation 2 puff inhalation Q4H PRN wheezing 03/10/25 03/11/25 Unknown History aerosol inhaler amlodipine 10 mg tablet 10 mg PO QAM 03/10/25 03/11/25 03/18/25 05:30 History apixaban 5 mg tablet (Eliquis) 5 mg PO BID 03/10/25 03/11/25 03/12/25 History Held on 03/16/25. Instructions: Resume on 03/21/25. You may resume Eliquis 3 days after surgery atorvastatin 20 mg tablet 20 mg PO BEDTIME 03/10/25 03/11/25 Unknown History cyclobenzaprine 10 mg tablet 10 mg PO TID PRN muscle spasm 03/10/25 03/11/25 Unknown History fluticasone propionate 50 2 spray intranasal DAILY 03/10/25 03/11/25 Unknown History mcg/actuation nasal spray,suspension gabapentin 600 mg tablet 600 mg PO QPM 03/10/25 03/11/25 Unknown History glipizide 5 mg tablet 5 mg PO QAM 03/10/25 03/11/25 Unknown History hydrochlorothiazide 25 mg tablet 25 mg PO QAM 03/10/25 03/11/25 Unknown History losartan 100 mg tablet 100 mg PO QAM 03/10/25 03/11/25 Unknown History metformin 500 mg tablet,extended 1,000 mg PO BID 03/10/25 03/11/25 Unknown History release 24 hr metoprolol succinate 50 mg 100 mg PO QAM 03/10/25 03/11/25 03/18/25 05:30 History tablet,extended release 24 hr ondansetron 4 mg disintegrating 4 mg PO Q8H PRN nausea/vomiting 03/10/25 03/10/25 Unknown History tablet pantoprazole 40 mg tablet,delayed 40 mg PO BEDTIME 03/10/25 03/11/25 Unknown History release spironolactone 25 mg tablet 25 mg PO BEDTIME 03/10/25 03/11/25 Unknown History tiotropium bromide 18 mcg capsule 1 cap inhalation DAILY 03/10/25 03/10/25 Unknown History with inhalation device (Spiriva with HandiHaler) benzonatate 100 mg capsule 100 mg PO TID PRN cough 03/11/25 03/11/25 Unknown History melatonin 10 mg tablet 20 mg PO BEDTIME 03/11/25 03/11/25 Unknown History Exam Height,Weight and Vital Signs: Height 5 ft 10 in Weight 103.419 kg Last Vital Signs Pulse 50 03/11/25 10:14 Resp 18 03/11/25 10:14 BP 145/65 H 03/11/25 10:14 Pulse Ox 97 03/11/25 10:14 O2 Del Method Room Air 03/11/25 10:14 Pertinent Lab Results Pertinent Lab Results: Laboratory Tests 01/17/25 11:01 WBC 7.7 Hgb 12.8 L Hct 38.5 L Plt Count 270 Sodium 138 Potassium 4.3 Chloride 105 Carbon Dioxide 25 BUN 14 Creatinine 0.72 Narrative Narrative: EKG 01/2025 Vent. Rate : 48 BPM Atrial Rate : 48 BPM P-R Int : 166 ms QRS Dur : 104 ms QT Int : 432 ms P-R-T Axes : 65 -1 -5 degrees QTcB Int : 385 ms Sinus bradycardia Otherwise normal ECG No previous ECGs available ECHO 2021 Summary The left atrium is mildly to moderately dilated. There is mild to moderate mitral regurgitation. The right ventricle is mildly dilated. The right ventricular wall thickness is normal. Right ventricular systolic function is normal. The left ventricle is dilated. The left ventricular wall thickness is mildly increased. The LV systolic function is normal . The left ventricular ejection fraction is 55-60 %. There are no regional wall motion abnormalities. Left ventricular filling pressures are indeterminate. Airway Mallampati Class: II TM Dist: >3cm Neck ROM: Full Denture: Upper and Lower Heart: lizz, reg Lungs: Crackles LLL, clears with cough. Otherwise CTA Other: Ecouraged cough and deep breathing throughout days preop Assessment and Plan Assessment Anesthesia Assessment: Anesthesia Plan Discussed and PAT Visit Documented by User: Jazmín Ty DO 03/18/25 08:39 [facility] Past Medical History Medical History Osteoarthritis GERD (gastroesophageal reflux disease) Mild emphysema Pulmonary nodule Renal cyst DUNCAN (nonalcoholic steatohepatitis) Barretts esophagus Sleep apnea Atrial fibrillation Diabetes HTN (hypertension) On anticoagulant therapy Elevated cholesterol Family History Family history of problems with anesthesia: No Surgical History Surgical History Hx of lumbar discectomy History of esophagogastroduodenoscopy (EGD) H/O colonoscopy History of bronchoscopy History of total bilateral knee replacement History of right shoulder replacement History of cardiac ablation for atrial fibrillation Hx of repair of rotator cuff History of Problems with Anesthesia: No Social History Social History Use of substances other than those prescribed or required for medical reasons: No Have you been hit, kicked, punched, or otherwise hurt by someone within the past year? If so, by whom?: No Spiritual Healthcare Practices: no Alevism Healthcare Practices: no Cultural Healthcare Practices: no Are you DNR?: No Advance Directives on File: No Poor oral hygiene: No Meds Allergies Allergy/AdvReac Type Severity Reaction Status Date / Time morphine Allergy Severe projectile Verified 03/18/25 07:34 vomiting latex Allergy Intermediate Hives Verified 03/18/25 07:34 Home Medications ?Medication ?Instructions ?Recorded ?Confirmed ?Last Taken ?Type albuterol sulfate 90 mcg/actuation 2 puff inhalation Q4H PRN wheezing 03/10/25 03/11/25 Unknown History aerosol inhaler amlodipine 10 mg tablet 10 mg PO QAM 03/10/25 03/11/25 03/18/25 05:30 History apixaban 5 mg tablet (Eliquis) 5 mg PO BID 03/10/25 03/11/25 03/12/25 History Held on 03/16/25. Instructions: Resume on 03/21/25. You may resume Eliquis 3 days after surgery atorvastatin 20 mg tablet 20 mg PO BEDTIME 03/10/25 03/11/25 Unknown History cyclobenzaprine 10 mg tablet 10 mg PO TID PRN muscle spasm 03/10/25 03/11/25 Unknown History fluticasone propionate 50 2 spray intranasal DAILY 03/10/25 03/11/25 Unknown History mcg/actuation nasal spray,suspension gabapentin 600 mg tablet 600 mg PO QPM 03/10/25 03/11/25 Unknown History glipizide 5 mg tablet 5 mg PO QAM 03/10/25 03/11/25 Unknown History hydrochlorothiazide 25 mg tablet 25 mg PO QAM 03/10/25 03/11/25 Unknown History losartan 100 mg tablet 100 mg PO QAM 03/10/25 03/11/25 Unknown History metformin 500 mg tablet,extended 1,000 mg PO BID 03/10/25 03/11/25 Unknown History release 24 hr metoprolol succinate 50 mg 100 mg PO QAM 03/10/25 03/11/25 03/18/25 05:30 History tablet,extended release 24 hr ondansetron 4 mg disintegrating 4 mg PO Q8H PRN nausea/vomiting 03/10/25 03/10/25 Unknown History tablet pantoprazole 40 mg tablet,delayed 40 mg PO BEDTIME 03/10/25 03/11/25 Unknown History release spironolactone 25 mg tablet 25 mg PO BEDTIME 03/10/25 03/11/25 Unknown History tiotropium bromide 18 mcg capsule 1 cap inhalation DAILY 03/10/25 03/10/25 Unknown History with inhalation device (Spiriva with HandiHaler) benzonatate 100 mg capsule 100 mg PO TID PRN cough 03/11/25 03/11/25 Unknown History melatonin 10 mg tablet 20 mg PO BEDTIME 03/11/25 03/11/25 Unknown History Exam Exam Date and Time: 03/18/25 0835 Height,Weight and Vital Signs: Height 5 ft 10 in Weight 103.419 kg Last Vital Signs Pulse 50 03/11/25 10:14 Resp 18 03/11/25 10:14 BP 145/65 H 03/11/25 10:14 Pulse Ox 97 03/11/25 10:14 O2 Del Method Room Air 03/11/25 10:14 Vital Signs Pulse Rate 50 03/11/25 10:14 Respiratory Rate 18 03/11/25 10:14 Blood Pressure 145/65 H 03/11/25 10:14 Pulse Oximetry 97 03/11/25 10:14 Oxygen Delivery Method Room Air 03/11/25 10:14 Temperature 97.9 F 03/18/25 07:11 Pulse Rate 51 03/18/25 07:11 Respiratory Rate 15 03/18/25 07:11 Blood Pressure 154/55 H 03/18/25 07:11 Pulse Oximetry 96 03/18/25 07:11 Oxygen Delivery Method Room Air 03/18/25 07:11 Airway Mallampati Class: II TM Dist: >3cm Neck ROM: Full Denture: Upper and Lower Heart: S1S2 Lungs: CTAB Assessment and Plan Assessment Anesthesia Assessment: Anesthesia Plan Discussed and Chart Reviewed Final Anesthetic Review Family History of Problems with Anesthesia: No History of Problems with Anesthesia: No NPO: Yes ASA Class: III Final Preanesthetic Review: No Changes in Pt Med Stat, Meds/Allgs Chart Reviewed, Consent Obtained/Reviewed and Anes Risks/Benef Reviewed Patient Risk: Intermediate Procedure Risk: Low Anesthetic Plan Anesthetic Plan: GA and Agree w/ Assess. and Plan Disposition: Standard PACU
--- NOTE | 2025-03-18 10:55 | W.PM.OPN ---
Operative Note Operative Note Date of Service: 03/18/25 Narrative: Preoperative Diagnosis: Spinal stenosis/lateral recess stenosis/neural foraminal stenosis Operation: Right L5 Laminotomy, Partial facetectomy and foraminotomy with use of microscope Consent Informed Consent was obtained for this operation. I have explained the nature, purpose and benefits of the operation. I have discussed the risks and benefit of the operation including possible complications or adverse events with patient/family. Alternative(s) were discussed with the patient with their relative benefits and risks as well as the consequences of not accepting the operation were included in obtaining consent. Surgeon: SHIRLEY NGUYEN MD, PHD Procedure Assisted By: jacinto Lauren Description of Procedure This 69-year-old male suffering from right lumbar radiculopathy due to right L5 neuroforaminal stenosis. The patient was offered a decompression of the nervous structures. The procedure complications were explained. The patient was consented. The patient was brought to the operating room and endotracheally intubated. The patient was turned in prone position on the Christopher frame. Prep and drape was done followed by timeout. Physician outpatient physical therapist assistant provided access. A mid lumbar incision was made followed by release of the paravertebral muscle on the right side to expose the right L5 lamina and facet joint. An intraoperative x-ray was obtained to confirm the correct level. The microscope was brought in. I took over the procedure. The high-speed drill was used to do a L5 laminotomy. #2 Kerrison was used to further remove the lamina towards the L5 foramen. With a nerve hook the medial wall of the L5 pedicle was palpated as well as the beginning of the L5 foramen. The facet joint was partially drilled down after which with a #2 Kerrison a foraminotomy was done. Finally a foraminotomy Kerrison was used to complete the foraminotomy. A long nerve hook could be easily passed lateral and dorsally from the nerve root, a sign of relief of the neuroforaminal stenosis and decompression of the nerve root . The microscope was removed. Hemostasis was done. Incision was closed in 2 layers. Steri-Strips were used to approximate incision. An OpSite with Tegaderm was used to cover the incision. All sponge needle counts were correct. Patient was extubated and transported in stable is to recovery room. Anesthesia: General Estimated Blood Loss (ml): Minimal Duration of Surgery: Under 60 Minutes Postoperative Plan: Discharge to home
[2025-03-18 11:14] VITALS: BP 158/61; PULSE 49; RESP 16; TEMP 36.4; O2SAT 98
[2025-03-18 11:19] VITALS: BP 142/68; PULSE 45; RESP 15; O2SAT 93
[2025-03-18 11:24] VITALS: BP 137/54; PULSE 45; RESP 15; O2SAT 96
[2025-03-18 11:29] VITALS: BP 138/54; PULSE 48; RESP 10; O2SAT 97
[2025-03-18 11:39] VITALS: BP 144/71; PULSE 48; RESP 12; TEMP 36.3; O2SAT 97
== END 2025-03-18 12:18 | disposition home or self-care (01) ==
LOC: HO.SSS 06:46
PROVIDERS: PCP Pediatrics; Visit Provider Neurological Surgery
PROC: (CPT 63047; principal; 2025-03-18 10:00)
DX: M48.062 Spinal stenosis, lumbar region with neurogenic claudication (principal); M54.16 Radiculopathy, lumbar region; M21.371 Foot drop, right foot; R20.0 Anesthesia of skin; G96.198 Other disorders of meninges, not elsewhere classified; G47.33 Obstructive sleep apnea (adult) (pediatric); E11.9 Type 2 diabetes mellitus without complications; I48.91 Unspecified atrial fibrillation; K22.70 Barrett's esophagus without dysplasia; Z79.84 Long term (current) use of oral hypoglycemic drugs; Z79.899 Other long term (current) drug therapy; Z79.51 Long term (current) use of inhaled steroids; Z88.5 Allergy status to narcotic agent; Z91.040 Latex allergy status; Z98.1 Arthrodesis status; Z96.611 Presence of right artificial shoulder joint; Z96.653 Presence of artificial knee joint, bilateral; Z98.890 Other specified postprocedural states
CPT/HCPCS: 63047; 82947; J0131; J0690; J1100; J1171; J1885; J2003; J2405; J2704; J3010

== ENCOUNTER → 2025-03-18 06:46 | Outpatient (BNV) | payer MEDICARE, SELFPAY | PROVIDERS: PCP Pediatrics; Visit Provider Neurological Surgery | DX: M48.07 Spinal stenosis, lumbosacral region (principal) | CPT/HCPCS: 63047; 99499 ==

== ENCOUNTER 2025-04-01 09:15 | Outpatient (AMB) | payer MEDICARE, SELFPAY ==
--- OUTSIDE RECORDS SUMMARY | 2024-06-23 12:56 | XMS_ITS | Encounter Summary ---
Author Organization [facility] Address [address] [facility] [address] [place] [address] Phone Care Team Providers Care Benefits Representative Name Role Phone Horacio Mcduffie MD Primary Care Provider [phone] Encounter Details Date Type Department Care Team (Late st Contact Info) Description 06/23/2024 11:56 AM EST Hospital Encounter [facility] [address] [place] [address] Agata Shipman FNP 12 [place] [address] [email or web address] Social History Tobacco Use Types Packs/Day [...] provided indication for this examination in [facility]: Pain; right side mid back and rib [...] provided indication for this examination in [facility]:Pain; right side mid back and rib pain, [...] on filedocumented in this encounter Care Teams Benefits Representative Relationship Specialty Start Date End Date Horacio Mcduffie MD [address] [place] [id number] PCP - General 10/11/22 documented as of this encounter Additional Source Comments The information contained in this document represents components of the legal health record. It is not the complete legal health record.[facility]
--- NOTE | 2025-04-01 09:17 | A.OFFVIS_ITS ---
Vital Signs 04/01/25 09:20 Height 5 ft 10 in Weight 232 lb BMI 33.3 BP 179/77 H Blood Pressure Location Lt brachial Position Sitting Respiration 16 Pulse 53 Pulse Source Pulse Oximeter Pulse Oximetry (%) 96 Oxygen Delivery Method Room Air Intake Visit Reasons: Chronic Back Pain Sessions Clerk Required: No Accompanied by: Self / Same As Patient Allergies morphine Allergy (Severe, Verified 04/01/25 09:19) projectile vomiting latex Allergy (Intermediate, Verified 04/01/25 09:19) Hives HPI Comments Details: Mj is very pleasant 70 years old gentleman who presents in my office with complains on pain starting in the middle of the thoracic spine and radiating to the right side of the chest into the anterior portion of the abdomen. He reported that this pain started 1 year ago. Apparently he was diagnose with arachnoid cyst on MRI. The arachnoid cyst compresses the spinal cord deviates it to the left. The neurosurgeon Dr. Coto requested me to perform diagnostic interlaminar T8-T9 or transforaminal T8-T9 epidural steroid injectio n. 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 He reports this pain does not affect his sleep activities of daily living personal care of functional capacity, he reports that weather changes in movements aggravate his pain and heat applications make his pain better. He was sent for the ultrasound of the right upper quadrant which did not demonstrate any pathology with the liver or gallbladder and biliary ducts. He reports his pain is stabbing, lancinating, sharp, cutting, lacerating, spreading, radiating, piercing sensation. He never had physical therapy to address this pain. However this is thoracic spine in the likely physical therapy will be effective. The MRI of the thoracic spine was done for the patient but it is not available for me today. His past medical history significant for diabetes and arthritis, his past surgical history significant for lumbar surgery at L4 and L5 shoulder replacement surgery knee replacement surgery and rotator cuff surgeries. He denies smoking cigarettes denies drinking alcohol he drinks no coffee or caffeinated beverages and he denies recreational drugs. [facility] Medical History (Updated 04/01/25 @ 13:06 by Paco Mesa MD) Osteoarthritis GERD (gastroesophageal reflux disease) Mild emphysema Pulmonary nodule Renal cyst DUNCAN (nonalcoholic steatohepatitis) Barretts esophagus Sleep apnea Atrial fibrillation Diabetes HTN (hypertension) On anticoagulant therapy Elevated cholesterol Surgical History Hx of lumbar discectomy History of esophagogastroduodenoscopy (EGD) H/O colonoscopy History of bronchoscopy History of total bilateral knee replacement History of right shoulder replacement History of cardiac ablation for atrial fibrillation Hx of repair of rotator cuff Social History Are you a primary primary care nurse to a significant other at home: No Do you presently have visiting nurse or other home services: No Patient Tobacco Use Status: Former Tobacco user Tobacco use type: Cigarette Years Smoked: 18 Review of Systems Const All systems reviewed & are unremarkable except as noted in HPI and below ENT Reports Normal hearing present Neuro Reports Normal hearing present, Denies Abnormal speech present, Denies confusion and Denies Sensory deficit (Neuro) Psych Denies confusion Physical Exam Vital Signs: Last Vital Signs Pulse 53 04/01/25 09:20 Resp 16 04/01/25 09:20 BP 179/77 H 04/01/25 09:20 Pulse Ox 96 04/01/25 09:20 Oxygen Delivery Method Room Air 04/01/25 09:20 BMI result Body Mass Index 33.3 Const General: no acute distress; No confusion Orientation/consciousness: patient oriented x3 and No confusion Eyes General: appearance normal, both eyes and all related structures Pupils: Equal, round and reactive pupils present EOM: EOMs intact bilaterally Neck Neck: Yes full ROM Chest Other: There is tenderness on palpation in projection of approximately T8 vertebra of the thoracic spine. Chest palpation & inspection: normal inspection of the chest Resp Effort & Inspection: normal respiratory effort, able to speak in complete sentences, normal respiratory pattern, no audible wheezes and no cough Cardio Jugular venous distension: no JVD GI Inspection: Yes normal to inspection Neuro General: patient oriented x3, gait normal and No confusion Cranial nerves: Yes CN's II-XII intact bilaterally, Yes Equal, round and reactive pupils present, Yes Normal hearing present and Yes Ability to bilaterally elevate shoulders present Speech: No Abnormal speech present Gait exam (Neuro): Normal gait present Motor exam (neuro): 5/5 motor strength present throughout Sensory Exam: No Sensory deficit (Neuro) Extrem General: No pedal edema Psych Speech and movement: Normal speech and movement present Affect: normal affect Attitude: cooperative Thought process: Normal thought process present Thought content: Normal thought content present Insight: Good insight present (Psych) Judgement: Good judgement present (Psych) Results Reviewed Results Reviewed: MRI thoracic spine with and without contrast 10/23/2024 Right-sided chest pain. Findings: There is mild exaggeration of thoracic kyphosis. No significant subluxation is present, and there is no significant loss of thoracic vertebral body height. My loss of height at T9-T10, T10-T11, and T11-T12 with anterior marginal osteophytes. Mild Modic type 1 endplate changes at T9-T10. At T7 there is anterior displacement of the thoracic cord with slight flattening of the posterior margin of the cord. This is associated with asymmetrically widening of the dorsal subarachnoid space. CSF pulsation are noted within the posterior subarachnoid space at this level. The thoracic cord is normal in signal. No epidural fluid collection is noted and there is no definite abnormal cord enhancement. The paraspinal soft tissues are unremarkable. At T1-T2 there is mild facet arthrosis and no significant foraminal narrowing. At T2-T3 there is left facet arthrosis. No central canal or right foraminal stenosis. At least mild left foraminal narrowing. At T3-T4 there is left facet arthrosis. No central canal or right foraminal stenosis. At this mild left foraminal narrowing. T4-T5 there is mild facet arthrosis with mild foraminal narrowing. Impression degenerative changes of the thoracic spine without significant acquired central canal stenosis. Foraminal narrowing is noted above. At T8 there is anterior displacement of the thoracic cord with mild flattening of the posterior margin. 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 No associated cord against signal abnormality. Assessment & Plan Assessment & Plan (1) Spinal arachnoid cyst: Code(s): G96.198 - Other disorders of meninges, not elsewhere classified Category: Medical (2) Status post lumbar spine operative procedure for decompression of spinal cord: Code(s): Z98.890 - Other specified postprocedural states Category: Medical (3) Neuroforaminal stenosis of lumbosacral spine: Code(s): M48.07 - Spinal stenosis, lumbosacral region Category: Medical Plan: I will schedule this patient for diagnostic and potentially therapeutic T8-T9 more to the right interlaminar epidural steroid injection. This procedure is requested by Neurosurgery , they are trying to plan future procedure for the patient. (4) Chronic pain syndrome: Code(s): G89.4 - Chronic pain syndrome Category: Medical (5) Radiculopathy, thoracic region: Code(s): M54.14 - Radiculopathy, thoracic region Category: Medical Plan Next appointment will be scheduled in 2 weeks after the injection. Coding Level of Care Code New Pt Level 3 (80765) Diagnoses Spinal arachnoid cyst G96.198 Status post lumbar spine operative procedure for decompression of spinal cord Z98.890 Neuroforaminal stenosis of lumbosacral spine M48.07 Chronic pain syndrome G89.4 Radiculopathy, thoracic region M54.14
[2025-04-01 09:20] VITALS: BP 179/77; PULSE 53; RESP 16; O2SAT 96; BMI 33.3
--- OUTSIDE RECORDS SUMMARY | 2025-04-01 10:11 | XMS_ITS | Clinical Summary ---
Author Organization [facility] Address [address] [place] [phone] Phone Care Team Providers Care Computer Education Professor Name Role Phone Horacio Mcduffie MD Primary Care Provider [phone] Allergies Active Allergy Reactions Criticality Noted Date Comments Diphenhydramine Hcl Other 07/05/2017 Confusion Latex Rash 06/24/2017 Lisinopril Cough 06/24/2017 Morphine Nausea And Vomiting 01/25/2022 Medications aluminum-magnesium hydroxide-simethic one (MAALOX) 200-200-20 mg/5 mL suspension Take 15 mL by mouth 4 times daily as needed (heartburn, castro's esopahgus). 4 Active apixaban (ELIQUIS) 5 mg tablet Take 1 Tablet by mouth 2 times daily. Active famotidine (PEPCID) 20 mg tablet Take 1 Tablet by mouth 2 times daily as needed for Heartburn. 4 Active melatonin 10 mg tablet Take by mouth. Activ e methocarbamoL (ROBAXIN) 750 mg tablet TAKE ONE TABLET BY MOUTH THREE TIMES A DAY DIRECTED FOR 7 DAYS 4 Active lancets 30 gauge misc 1 Stick by Does not apply route daily. 4 Active blood sugar diagnostic (OneTouch Verio test strips) test strip Apply 1 strip topically to test fasting blood sugar once daily 4 Active blood-glucose meter (ONETOUCH VERIO METER MISC) 1 Kit by Does not apply route daily. Use to test fsbs once a day 3 Active blood-glucose meter kit Use as directed to test fsbs once daily. 9 Active fluticasone propionate (FLONASE) 50 mcg/actuation nasal sprayIndications:R UQ abdominal pain,Subacute cough Administer 2 sprays into each nostril 1 (one) time each day. Shake gently. Before first use, prime pump. After use, clean tip and replace cap. 16 g 5 5 026 Active albuterol HFA (ProAir HFA) 90 mcg/actuation inhalerIndications :RUQ abdominal pain,Subacute cough Inhale 2 puffs by mouth every 4 (four) hours if needed for wheezing or shortness of breath. 18 g 11 5 026 Active metFORMIN XR (GLUCOPHAGE-XR) 500 mg 24 hr tablet Take 4 tablets (2,000 mg total) by mouth 1 (one) time each day. 360 tablet 1 5 Active atorvastatin (LIPITOR) 20 mg tablet TAKE ONE TABLET BY MOUTH EVERY DAY 90 tablet 1 5 Active spironolactone (ALDACTONE) 25 mg tablet TAKE ONE TABLET BY MOUTH EVERY DAY 90 tablet 1 5 Active metoprolol succinate (TOPROL-XL) 50 mg 24 hr tablet TAKE TWO TABLETS BY MOUTH EVERY DAY 180 tablet 1 5 Active hydroCHLOROthiazid e (HYDRODIURIL) 25 mg tabletIndications: Primary hypertension TAKE ONE TABLET BY MOUTH EVERY DAY 90 tablet 1 5 Active ondansetron ODT (ZOFRAN-ODT) 4 mg disintegrating tabletIndications: Nausea Dissolve 1 tablet (4 mg total) on top of the tongue every 8 (eight) hours if needed for nausea or vomiting. 30 tablet 2 5 Active losartan (COZAAR) 100 mg tablet TAKE ONE TABLET BY MOUTH EVERY DAY 90 tablet 1 5 Active gabapentin (NEURONTIN) 600 mg tablet Take 1 tablet (600 mg total) by mouth 2 (two) times a day. 180 each 1 5 026 Active benzonatate (TESSALON) 100 mg capsuleIndications :Subacute cough,Chronic obstructive pulmonary disease, unspecified COPD type (CMS/HCC V24, CMS/HCC V28) Take 1 capsule (100 mg total) by mouth 3 (three) times a day if needed for cough. 20 capsule 1 5 Active cyclobenzaprine (FLEXERIL) 10 mg tabletIndications: Cervicalgia Take 1 tablet (10 mg total) by mouth 3 (three) times a day if needed for muscle spasms. 30 tablet 1 5 Active pantoprazole (PROTONIX) 40 mg EC tablet Take 1 tablet (40 mg total) by mouth 2 (two) times a day. DO NOT CRUSH CHEW OR SPLIT 180 tablet 1 5 Active amLODIPine (NORVASC) 10 mg tablet Take 1 tablet (10 mg total) by mouth 1 (one) time each day. 90 tablet 1 5 Active glipiZIDE (GLUCOTROL) 5 mg tablet Take 1 tablet (5 mg total) by mouth 1 (one) time each day. 90 tablet 1 5 Active tiotropium (SPIRIVA) 18 mcg per inhalation capsuleIndications :Subacute cough,Chronic obstructive pulmonary disease, unspecified COPD type ([facility] V24, [facility] V28) Place 1 capsule (18 mcg total) into inhaler and inhale 1 (one) time each day. 1 each 12 5 026 Active Active Problems Problem Noted Date Diagnosed Date Abnormal computed tomography angiography of head 01/18/2025 Castro's esophagus 05/04/2024 DM (diabetes mellitus), type 2 with neurological complications ([facility] V24, [facility] V28) 05/04/2024 Uncontrolled hypertension 05/04/2024 Lumbar herniated disc 05/04/2024 Overview (05/04/2024): left sided S/P TKR (total knee replacement) 05/20/2022 Overview (05/04/2024): right Paroxysmal atrial fibrillation ([facility] V24, [facility] V28) 05/04/2020 Overview (05/04/2024): [place] Hypercholesteremia 04/07/2020 Obstructive sleep apnea 07/15/2018 Overview [...] mellitus), type 2 with peripheral vascular complications ([facility] V24, [facility] V28) 07/05/2017 DM (diabetes mellitus), type 2 with renal complications (CMS/HCC V24, CMS/[facility] V28) 07/05/2017 Erectile dysfunction 07/05/2017 Fatty liver 07/05/2017 Microalbuminuria 07/05/2017 DUNCAN (nonalcoholic steatohepatitis) 07/05/2017 Renal cyst 07/05/2017 Overview (05/04/2024): Left [address] 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 Polyp of colon 06/24/2017 Encounters Date Type Department Care Team Description 03/18/2025 Results Follow-Up Adult Medicine - Mobile [address] [place] [address] Annalise Carvajal NP 03/12/2025 7:47 AM EDT - 03/12/2025 11:59 PM EDT Hospital Encounter [facility] [address] [place] [address] Discharge Disposition: Home or Self Care 03/02/2025 Telephone Adult [address] [address] Horacio Mcduffie MD 02/26/[address] [address] Horacio Mcduffie MD 02/25/2025 3:00 PM EDT Office Visit [address] [address] Annalise Carvajal NP Essential hypertension (Primary Dx); Vertebral artery stenosis, unspecified laterality; Cervicalgia; Subacute cough; Chronic obstructive pulmonary disease, unspecified COPD type ([facility] V24, [facility] V28) 01/21/[address] [address] Horacio Mcduffie MD 01/19/[address] [address] Horacio Mcduffie MD 01/18/2025 4:14 PM EDT - 01/18/2025 11:59 PM EDT Hospital Encounter [address] [address] Cervicalgia Discharge Disposition: Home or Self Care 01/18/2025 3:15 PM EDT Office Visit [address] [address] Renan Sloan PA Dizziness (Primary Dx); Vertebral artery stenosis, unspecified laterality; Abnormal computed tomography angiography of head; DM (diabetes mellitus), type 2 with peripheral vascular complications ([facility] V24, [facility] V28); Hypercholesteremia; Cervicalgia; Uncontrolled hypertension 01/18/[address] [address] Horacio Mcduffie MD 01/08/2025 Telephone Gastroenterology [facility] [address] [facility] [address] [place] [address] Emile Kirby MD from Last 3 Months Immunizations Immunization Administration Dates Next Due Hepatitis B (Iycezrx-Z-Dmrpa , Recombivax HB-Adult) 19yo and older 07/06/2020,03/09/2020,02/03/2020 [...] Safety Answer Date Record ed Physical Abuse Unrecognized value 12/15/2024 Verbal Abuse Unrecognized value 12/15/2024 Sex and Gender Information Value Date Recorded Sex Assigned at Male 07/27/2024 2:14 PM EST Legal Sex Male 2:06 AM EST Gender Identity Male 07/27/2024 2:14 PM EST Sexual Orientation Straight 08/21/2024 12 :07 PM EDT Obstetrics History Last Filed Vital Signs Vital Sign Reading Time Taken Comments Blood Pressure 122/56 02/25/2025 2:55 PM EDT Pulse 56 02/25/2025 2:55 PM EDT Temperature 36.7 C (98.1 F) 02/25/2025 2:55 PM EDT Respiratory Rate 18 12/15/2024 8:16 AM EDT Oxygen Saturation 99% 12/15/2024 8:16 AM EDT Inhaled Oxygen Concentration - - Weight 106 kg (233 lb) 02/25/2025 2:55 PM EDT Height 177.8 cm (5' 10 ) 02/25/2025 2:55 PM EDT Body Mass Index 33.43 02/25/2025 2:55 PM EDT Plan of Treatment Health Maintenance Due Date Last Done Comments Diabetes: Annual Retina Eye Exam 1965 Zoster Vaccines (1 of 2) 1974 RSV Immunization Adult Patients (1 - Risk 50-74 years 1-dose series) 2005 Abdominal Aortic Aneurysm (AAA) Screen 05/19/2022 Medicare [...] Annual Urine Albumin-Creatinine Ratio (uACR) 01/18/2026 01/18/2025, 01/18/2025, 03/12/2024 Diabetes: Annual GFR (Glomerular Filtration Rate) 01/18/2026 01/18/2025, 01/18/2025, 09/24/2024, Additional history exists Hypertension/CHF/CAD Annual BMP Blood Test 01/18/2026 01/18/2025, 01/18/2025, 09/24/2024, Additional history exists Cholesterol Screening (Lipid Panel) [...] this topic Medical Devices Implanted Type Area Blender/Braze Applicator Device Identifier Shelf Expiration Date Model / Serial / Lot Marker Cobra Superlock - Sn/A - [id number] Implanted:Qt y: 1 on 09/30/2024 by Amanda Hemphill MD at [facility] Implants Left: Lung [employer] SU[employer] [id number] 08/06/2028 [id number] / N/A / [id number] Description:LLL Implants Implants Right: Chest Wall inspired sleep apnea device Description:Implanted device for sleep apnea Joints Knee Joints Knee Bilateral: Knee Joints Shoulder Joints Shoulder Right: Shoulder Procedures Procedure Name Priority Date/Time Associated Diagnosis Comments EXTERNAL XRAY REPORT 03/18/2025 EXTERNAL XRAY REPORT 03/18/2025 HC SPIROMETRY BRONCHODILATION RESPONSIVENESS PRE/POST BRONCHODILATOR ADMINISTRATION Routine 03/12/2025 9:02 AM EDT Subacute cough Chronic obstructive pulmonary disease, unspecified COPD type (CMS/HCC V24, [facility] V28) EXTERNAL MRI REPORT 02/16/2025 XR CERVICAL SPINE 4-5 VIEWS Routine 01/18/2025 [...] microalbuminuria, without long-term current use of insulin ([facility] V24, [facility] V28) EXTERNAL CT REPORT 01/17/[address] REPORT 01/17/2025 HEPATITIS C ANTIBODY Routine 07/15/2024 9:45 AM EST Subacute cough RUQ abdominal pain Intercostal pain Transaminitis DIABETES FOOT EXAM Routine 03/25/2024 COLONOSCOPY Routine 08/17/2015 from Last 3 Months or Most Recently Relevant to Health Maintenance Results * External Xray Report (03/18/2025) Only the most recent of2 resultswithin the time period is included. Anatomical Region Laterality Modality Radiographic Marie ging Provider [facility] IM[facility] XR PROCEDURES Final Result * Pulmonary function testing: Spirometry with Bronchodilator, Spirometry (03/12/2025 9:02 AM EDT) Impressions Katie Pozo MD - 03/12/2025 9:04 AM EDT Pulmonary function test interpretation. Spirometry done today reveals FEV1 of 3.26 which is 106% of the predicted value, FVC is 4.12 which is an in 1% of the predicted value, FEV1 to FVC ratio is 103% of the predicted value, there is no bronchodilator response. Flow-volume loop is consistent with normal pattern. Static lung volumes are within normal limits. Diffusion lung capacity was mildly reduced however normalized after correction for alveolar volume. This study is consistent with normal spirometry for which clinical correlation is advised however if diagnosis of asthma is in question suggest methacholine challenge test. Annalise Carvajal NP PFT ORDERABLES Final Result * External MRI Report (02/16/2025) Anatomical Region Laterality Modality Magnetic Resonan ce Provider [facility] IM[facility] MRI PROCEDURES Final Result * XR Cervical Spine 4-5 Views (01/18/2025 [...] Signed Date: 01/19/2025 10:28 ET Workstation ID: [id number] Transcribed By: Self Edit Transcribed Date: 01/19/2025 [...] Signed Date: 01/19/2025 10:28 ET Workstation ID: [id number] Transcribed By: Self Edit Transcribed Date: 01/19/2025 10:27 ET Renan YANG IMG XR PROCEDURES Final Result * (ABNORMAL) Microalbumin creatinine urine ratio (01/18/2025 4:13 PM EDT) Creatinine, Urine 79.0 mg/dL LAB CHEMISTRY METHOD 01/18/2025 6:29 PM EDT [facility] Microalb, Ur 137.0(H) 0.0 - 29.0 mg/L LAB CHEMISTRY METHOD 01/18/2025 6:29 PM EDT [facility] Microalb/Crea t Ratio 173(H) <30 mg/g creat LAB CHEMISTRY METHOD 01/18/2025 6:29 PM EDT [facility] Urine Urine specimen obtained by clean catch procedure / Unknown Non-blood Collection / Unknown 01/18/2025 4:13 PM EDT 01/18/2025 4:13 PM EDT us Maximiliano Hua MD LAB URINE ORDERABLES Final Res ult [facility] [address] [place] [address], [place] [phone] * Lipid panel with reflex to direct LDL (01/18/2025 4:06 PM EDT) Cholesterol 119 0 - 200 mg/dL LAB CHEMISTRY METHOD 01/18/2025 6:52 PM EDT [facility] Triglycerides 137 0 - 150 mg/dL LAB CHEMISTRY METHOD 01/18/2025 6:52 PM EDT [facility] HDL 42 >=40 mg/dL LAB CHEMISTRY METHOD 01/18/2025 6:52 PM EDT [facility] LDL Calculated 50 0 - 100 mg/dL LAB CHEMISTRY METHOD 01/18/2025 6:52 PM EDT [facility] Comment:Estimated LDL Calcul ated using equation: Total cholesterol - HDL cholesterol - (Triglycerides/5) VLDL Cholesterol Harish 27.4 mg/dL LAB CHEMISTRY METHOD 01/18/2025 6:52 PM EDT [facility] Non HDL Chol. (LDL+VLDL) 77 <145 mg/dL LAB CHEMISTRY METHOD 01/18/2025 6:52 PM EDT [facility] Chol/HDL Ratio 2.8 0.0 - 4.4 LAB CHEMISTRY METHOD 01/18/2025 6:52 PM EDT [facility] Blood Venous blood specimen / Unknown Venipuncture / Unknown 01/18/2025 4:06 PM EDT 01/18/2025 4:06 PM EDT Annalise Carvajal NP LAB BLOOD ORDERABLES Final Res ult Performing Organization Address [facility]/ZIP Co de Phone Number [facility] [address] [place] [address], [place] [phone] * (ABNORMAL) Hemoglobin A1c (01/18/2025 4:06 PM EDT) Hemoglobin A1C 7.4(H) <6.5 % LAB CHEMISTRY METHOD 01/18/2025 9:17 PM EDT [facility] Mean Bld Glu Estim. 166 mg/dL LAB CHEMISTRY METHOD 01/18/2025 9:17 PM EDT [facility] Blood Venous blood specimen / Unknown Venipuncture / Unknown 01/18/2025 4:06 PM EDT 01/18/2025 4:06 PM EDT Annalise Carvajal EDUCATION PROFESSOR LAB BLOOD ORDERABLES Final Res ult Performing Organization Address City/[facility]/ZIP Co de Phone Number [facility] [address] [place] [address], [place] [phone] * (ABNORMAL) Basic metabolic panel (01/18/2025 4:06 PM EDT) Sodium 134 133 - 145 mmol/L LAB CHEMISTRY METHOD 01/18/2025 6:50 PM [facility] Potassium 4.9 3.5 - 5.5 mmol/L LAB CHEMISTRY METHOD 01/18/2025 6:50 PM [facility] Chloride 100 96 - 110 mmol/L LAB CHEMISTRY METHOD 01/18/2025 6:50 PM [facility] CO2 30 21 - 32 mmol/L LAB CHEMISTRY METHOD 01/18/2025 6:50 PM [facility] Anion Gap 4 3 - 11 LAB CHEMISTRY METHOD 01/18/2025 6:50 PM [facility] Glucose 122(H) 70 - 100 mg/dL LAB CHEMISTRY METHOD 01/18/2025 6:50 PM [facility] BUN 14 5 - 25 mg/dL LAB CHEMISTRY METHOD 01/18/2025 6:50 PM [facility] Creatinine 0.85 0.70 - 1.30 mg/dL LAB CHEMISTRY METHOD 01/18/2025 6:50 PM [facility] eGFR 94 >=60 mL/min/1. 73m2 LAB CHEMISTRY METHOD 01/18/2025 6:50 PM [facility] Comment:Calculation based on the Chronic Kidney Disease Epidemiology Collaboration (CKD-EPI) equation refit without adjustment for race. BUN/Creatinine Ratio 16.5 LAB CHEMISTRY METHOD 01/18/2025 6:50 PM [facility] Calcium 9.5 8.5 - 10.5 mg/dL LAB CHEMISTRY METHOD 01/18/2025 6:50 PM [facility] Blood Venous blood specimen / Unknown Venipuncture / Unknown 01/18/2025 4:06 PM EDT 01/18/2025 4:06 PM EDT us Maximiliano Hua MD LAB BLOOD ORDERABLES Final Res ult Performing Organization Address [facility] Co de Phone Number [facility] [address] [place] [address], * External CT Report (01/17/2025) Only the most recent of2 resultswithin the time period is included. Anatomical Region Laterality Modality Computed Tomogra phy Provider [facility] CT PROCEDURES Final Result * Hepatitis C antibody (07/15/2024 9:45 AM EST) [facility] Hepatitis C Antibody Negative Negative LAB CHEMISTRY METHOD 07/15/2024 5:17 PM EST [facility] Blood Venous blood specimen / Unknown Venipuncture / Unknown 07/15/2024 9:45 AM EST 07/15/2024 9:45 AM EST Venkata Cortes MD LAB BLOOD ORDERABLES Fin al Result Performing Organization Address [facility] Co de Phone Number [facility] [address] [place] [address], * Diabetes Foot Exam (03/25/2024) [facility] Diabetes: Annual Foot Exam Abstracted Historical [facility] Final Result * Colonoscopy (08/17/2015) [facility] Colonoscopy Abstracted, no interpretation Anatomical Region Laterality Modality Other Historical [place] Final Result from Last 3 [...] currently active code status orders. Care Teams Computer Education Professor Relationship Specialty Start Date End Date Horacio Mcduffie MD [address] [place] [id number] PCP - General Internal Medicine 09/12/20
--- OUTSIDE RECORDS SUMMARY | 2025-04-01 10:11 | XMS_ITS | Encounter Summary ---
Author Organization [facility] Address [address] [place] [address] Care Team Providers Care Cyanide Pot Tender Name Role Phone Horacio Mcduffie MD Primary Care Provider [phone] Encounter Details Date Type Department Care Team (Late st Contact Info) Description 03/18/2025 Results Follow-Up Adult Medicine [facility] [address] [place] [phone] Annalise Carvajal NP [address] [place] [address] Social History Tobacco Use Types Packs/Day Years [...] PM EDT documented as of this encounter Plan of Treatment Not on file documented as of this encounter Visit Diagnoses Not on filedocumented in this encounter Care Teams Cyanide Pot Tender Relationship Specialty Start Date End Date Horacio Mcduffie MD [address] [place], [place] PCP - General Internal Medicine 09/12/20 documented as of this encounter
--- OUTSIDE RECORDS SUMMARY | 2025-04-01 10:11 | XMS_ITS | Clinical Summary ---
Author Organization [employer] Address [address] [place] [address] [address] [place] [address] Care Team Providers Care Outreach Team Member Name Role Phone Prabhjot Mcduffie MD Primary [...] Mass Index - - Plan of Treatment Upcoming Encounters Date Type Department Care Team (Late st Contact Info) Description 04/27/2025 9:30 AM EST Office Visit [facility] OPTOMETRY [address] [place] [address] Renan Blanco, OD [address] [place] [address] Health Maintenance Due Date Last Done Comments CT Colonography 1955 Depression Screening 1955 FIT DNA/Cologuard 1955 FIT 1955 FOBT 1955 Lipid Panel 1955 SDOH Screening 1955 Sigmoidoscopy 1955 Diabetes: Foot Exam 1965 Alcohol/Substance Use Screening 1967 Hepatitis C Screening 1973 Zoster Vaccines (1 of 2) 2005 RSV Patients and Patients Aged 60 years or older (1 - Risk 60-74 years 1-dose series) 2015 Hepatitis A Vaccines (2 of 2 - Risk 2-dose series) 08/02/2016 01/31/2016 COVID-19 Vaccine ( season) 2025 06/16/2022, 04/21/2021, 09/07/2020, Additional history exists Influenza Vaccine (#1) 2025 , 03/13/2023, 03/13/2023, Additional history exists Tobacco Screening 04/17/2025 04/17/2024 Diabetes: Hemoglobin A1C 04/20/2025 01/18/2025 Colonoscopy 08/16/2025 08/17/2015, 05/22/2005 Colorectal Cancer Screening 08/16/2025 Eye Exam 11/17/2025 11/18/2023, 11/08, 11/18/2023, Additional history exists Diabetes: Urine Protein Screening 01/18/2026 01/18/2025 DTaP/Tdap/Td Vaccines (3 - Td or Tdap) [...] Relevant to Health Maintenance Results * COLONOSCOPY: [facility] (08/17/2015 12:00 AM EST) Anatomical Region Laterality Modality Endoscopy 08/17/2015 Narrative 08/17/2015 12:00 AM EST Refer to Fovea for result details [facility] Procedure: COLONOSCOPY: [facility] Procedure Note Provider, MD Bella - 10/04/2022 Refer to Fovea for result details [facility] Procedure: COLONOSCOPY: [facility] us Historical Provider ENDOSCOPY PROCEDURE ORDER PORTIA Final Result from Last 3 Months or Most Recently Relevant to Health Maintenance Insurance [employer] [place] [employer] P[employer]ED PRIME * Guarantor: Mj Arthur Account Type Relation to Patient Date of Phone Billing Address Personal/[place] [address] Care Teams Outreach Team Member Relationship Specialty Start Date End Date Prabhjot Mcduffie MD PCP - General Internal Medicine 05/28/22
--- OUTSIDE RECORDS SUMMARY | 2025-04-01 10:11 | XMS_ITS | Clinical Summary ---
Author Organization [facility] Address [address] [facility] [address] [place] [phone] Phone Care Team Providers Care Glass Laminating Operator Name Role Phone Horacio Mcduffie MD Primary Care Provider [phone] Allergies Active Allergy Reactions Criticality Noted Date [...] essential hypertension 06/23/2024 GERD (gastroesophageal reflux disease) 5 Osteoarthritis of left knee 06/23/2024 Restless leg [...] 04/07/2020 Obstructive sleep apnea 07/15/2018 Overview (06/23/2024): [facility] Home Polysomnogram: Date 07/12/2018; AHI [...] 2000 ZOSTER VACCINES (1 of 2) 2005 ABDOMINAL AORTIC ANEURYSM (AAA) SCREENING 2020 HEMOGLOBIN A1C 09/10/2024 03/12/2024 DIABETIC EYE EXAM 11/17/2024 11/18/2023, 05/28/2022 BLOOD PRESSURE 12/21/2024 06/23/2024 INFLUENZA VACCINE (#1) 2025 , 03/25/2024, 03/13/2023, Additional history exists COVID-19 VACCINE ( season) 2025 06/16/2022, 04/21/2021, 09/07/2020, Additional history exists RSV VACCINE (1 - 1-dose 75+ series) 2030 Adult Td,Tdap Booster 09/05/2030 09/05/2020, 012 PNEUMOCOCCAL [...] [place] [employer]AC[employer] Care Teams Glass Laminating Operator Relationship Specialty Start Date End Date Horacio Mcduffie MD [address] [place] [id number] PCP - General 10/11/22 Additional Source Comments The information contained in this document represents components of the legal health record. It is not the complete legal health record.[facility]
== END 2025-04-01 09:38 | disposition home or self-care (01) ==
LOC: HO.PMC 09:16
PROVIDERS: PCP Pediatrics; Visit Provider Anesthesiology
DX: G89.4 Chronic pain syndrome (principal); G96.198 Other disorders of meninges, not elsewhere classified; Z98.890 Other specified postprocedural states; M48.07 Spinal stenosis, lumbosacral region; M54.14 Radiculopathy, thoracic region
CPT/HCPCS: 99203

== ENCOUNTER → 2025-04-01 09:15 | Outpatient (BNVA) | payer MEDICARE, SELFPAY | PROVIDERS: PCP Pediatrics; Visit Provider Anesthesiology | DX: M48.07 Spinal stenosis, lumbosacral region (principal); G89.4 Chronic pain syndrome; M54.14 Radiculopathy, thoracic region; G96.198 Other disorders of meninges, not elsewhere classified | CPT/HCPCS: 99202 ==

== ENCOUNTER 2025-04-08 10:44 | Outpatient (AMB) | payer MEDICARE, SELFPAY ==
--- OUTSIDE RECORDS SUMMARY | 2024-06-23 12:56 | XMS_ITS | Encounter Summary ---
Author Organization [facility] Address [address] [facility] [address] [place] [address] Phone Care Team Providers Care Hot Plate Plywood Press Feeder Name Role Phone Prabhjot Mcduffie MD Primary Care Provider + Encounter Details Date Type Department Care Team (Late st Contact Info) Description 06/23/2024 11:56 AM EST Hospital Encounter [facility] [address] [place] [address] Agata Shipman FNP [address] [place] [phone] [email or web address] Social History Tobacco Use Types Packs/Day Years [...] clinician's provided indication for this examination in [facility]: Pain; right side mid back and rib [...] clinician's provided indication for this examination in [facility]:Pain; right side mid back and rib pain, [...] on filedocumented in this encounter Care Teams Hot Plate Plywood Press Feeder Relationship Specialty Start Date End Date Prabhjot Mcduffie MD [address] [place] [phone] PCP - General 10/11/22 documented as of this encounter Additional Source Comments The information contained in this document represents components of the legal health record. It is not the complete legal health record.[facility]
--- NOTE | 2025-04-08 10:48 | HO.SPINEOV ---
Intake Visit Reasons: 1st post op Intake Note: Mr. Arthur is here today for his 1st post op. Qualitative Executive Researcher Required: No Allergies morphine Allergy (Severe, Verified 04/01/25 09:19) projectile vomiting latex Allergy (Intermediate, Verified 04/01/25 09:19) Hives Assessment & Plan Assessment & Plan (1) Status post lumbar spine operative procedure for decompression of spinal cord: Code(s): Z98.890 - Other specified postprocedural states Category: Medical Plan Mj comes in today for his 1st postop appointment after having a right L5 laminotomy completed by Dr. Coto on 03/18/25. Preoperatively in clinic he was evaluated for a right lumbar radiculopathy. He reports that he is very satisfied with the surgery in his essentially been pain-free since the 1st week after his operation. The numbness in his right lower extremity has also resolved. He reports he has been back to regular activity but still being mindful of her restrictions. He only used a couple of days of his oxycodone. No new neurological deficits. The patient ambulates well and rises from a seated position without difficulty. His posterior incision site is closed and well healing with no signs of drainage. Mj is healing remarkably well from his surgery. There is no need for continued routine follow up with Mj, he may be discharged as a patient. Virgil Coto MD,PhD [facility] Coding Level of Care Code Global (48208) Diagnoses Status post lumbar spine operative procedure for decompression of spinal cord Z98.890
--- OUTSIDE RECORDS SUMMARY | 2025-04-08 13:14 | XMS_ITS | Clinical Summary ---
Author Organization [employer] Address [address] [place] [address] 7 [place] [address] Care Team Providers Care Qualitative Researcher Name Role Phone Prabhjot Mcduffie MD Primary [...] 04/27/2025 9:30 AM EST Office Visit [facility] OPTOMETRY [address] [place] [address] Renan Blanco, OD [address] [place] [address] Health Maintenance Due Date Last Done Comments [...] Relevant to Health Maintenance Results * COLONOSCOPY: [facility] (08/17/2015 12:00 AM EST) Anatomical Region Laterality Modality Endoscopy 08/17/2015 Narrative 08/17/2015 12:00 AM EST Refer to Fovea for result details Legacy Procedure: COLONOSCOPY: [facility] Procedure Note Provider, MD Bella - 10/04/2022 Refer to Fovea for result details Legacy Procedure: COLONOSCOPY: [facility] us Historical Provider ENDOSCOPY PROCEDURE ORDER PORTIA Final Result from Last 3 Months or Most Recently Relevant to Health Maintenance Insurance [employer] [place] [employer]ED [employer] * Guarantor: Mj Arthur Account Type Relation to Patient Date of Phone Billing Address Personal/[place] [address] Care Teams Qualitative Researcher Relationship Specialty Start Date End Date Prabhjot Mcduffie MD PCP - General Internal Medicine 05/28/22
--- OUTSIDE RECORDS SUMMARY | 2025-04-08 13:14 | XMS_ITS | Clinical Summary ---
Author Organization [facility] Address [address] [address] Phone Care Team Providers Care Sap Bpc Architect Name Role Phone Prabhjot Mcduffie MD Primary [...] 04/07/2020 Obstructive sleep apnea 07/15/2018 Overview (06/23/2024): [facility] Home Polysomnogram: Date 07/12/2018; AHI 61, [...] [employer] [employer] PREFERRED HMO REPLACEMENT Care Teams Sap Bpc Architect Relationship Specialty Start Date End Date Prahbjot Mcduffie MD [address] [place] [id number] PCP - General 10/11/22 Additional Source Comments The information contained in this document represents components of the legal health record. It is not the complete legal health record.[facility]
--- OUTSIDE RECORDS SUMMARY | 2025-04-08 13:14 | XMS_ITS | Clinical Summary ---
Author Organization [facility] Address [address] [place] [address] Care Team Providers Care Lawyer Criminal Name Role Phone Unavailable Primary Care Provider Unavailabl e Encounters Date Type Department Care Team Description 01/18/2025 Orders Only [facility] [address] [facility] [address] [place] [address] Maximiliano Hua MD from Last [...] 4:13 PM EDT) Creatinine, Urine 79.0 mg/dL [facility] Microalbumin Urine Random 137.0(H) 0.0 - 29.0 mg/L [facility] Microalbumin/Cre atinine Ratio 173(H) <30 mg/g creat [facility] 01/18/2025 4:13 PM EDT 01/18/2025 5:28 PM EDT us Maximiliano Hua MD LAB URINE ORDERABLES Final Resul t Performing Organization Address [facility] Co de Phone Number [facility] [address] [place] [address] * (ABNORMAL) Basic Metabolic Panel (01/18/2025 4:06 PM EDT) Sodium 134 133 - 145 mmol/L [facility] Potassium 4.9 3.5 - 5.5 mmol/L [facility] Chloride 100 96 - 110 mmol/L [facility] Bicarbonate (CO2) 30 21 - 32 mmol/L [facility] Anion Gap 4 3 - 11 [facility] Glucose 122(H) 70 - 100 mg/dL [facility] BUN 14 5 - 25 mg/dL [facility] Creatinine Serum 0.85 0.70 - 1.30 mg/dL [facility] eGFR 94 >=60 mL/min/1. 73m2 [facility] Comment:Calculation based on the Chronic Kidney Disease Epidemiology Collaboration (CKD-EPI) equation refit without adjustment for race. BUN/Creatinine Ratio 16.5 [facility] Calcium 9.5 8.5 - 10.5 mg/dL [facility] 01/18/2025 4:06 PM EDT 01/18/2025 5:27 PM EDT us Maximiliano Hua MD LAB BLOOD ORDERABLES Final Resul t Performing Organization Address [facility] Co de Phone Number [facility] [address] [place] [address] from Last 3 Months
== END 2025-04-08 11:22 | disposition home or self-care (01) ==
LOC: HO.HNS 10:44
PROVIDERS: PCP Pediatrics; Visit Provider Physician Assistant
DX: Z98.890 Other specified postprocedural states (principal)
CPT/HCPCS: 99024

== ENCOUNTER → 2025-04-08 10:44 | Outpatient (BNVA) | payer MEDICARE, SELFPAY | PROVIDERS: PCP Pediatrics; Visit Provider Physician Assistant | DX: Z47.89 Encounter for other orthopedic aftercare (principal); Z98.890 Other specified postprocedural states | CPT/HCPCS: 99212 ==

== ENCOUNTER 2025-05-05 09:01 | Outpatient (AMB) | payer MEDICARE, SELFPAY ==
--- OUTSIDE RECORDS SUMMARY | 2024-06-23 11:56 | XMS_ITS | Encounter Summary ---
Author Organization [facility] Address [address] [facility] [address] [place] [phone] Phone Care Team Providers Care Tuckpointer Name Role Phone Prabhjot Mcduffie MD Primary Care Provider + Encounter Details Date Type Department Care Team (Late st Contact Info) Description 06/23/2024 11:56 AM EST Hospital Encounter [facility] [address] [place] [address] Agata Shipman FNP 12 [place] [address] [email or web address] Social History Tobacco Use Types Packs/Day [...] clinician's provided indication for this examination in [facility]: Pain; right side mid back and [...] clinician's provided indication for this examination in [facility]:Pain; right side mid back and rib [...] on filedocumented in this encounter Care Teams Tuckpointer Relationship Specialty Start Date End Date Prabhjot Mcduffie MD [address] [place] [id number] PCP - General 10/11/22 documented as of this encounter Additional Source Comments The information contained in this document represents components of the legal health record. It is not the complete legal health record.[facility]
--- NOTE | 2025-05-05 09:17 | MHC.OFFVIS ---
Intake Visit Reasons: dizziness, vertebral artery stenosis Allergies morphine Allergy (Severe, Verified 04/01/25 09:19) projectile vomiting latex Allergy (Intermediate, Verified 04/01/25 09:19) Hives Medication List - Last Reconciled 05/05/25 by Tez Li MD albuterol sulfate 90 mcg/actuation 2 puffs inhalation Q4H PRN amlodipine 10 mg PO QAM apixaban (Eliquis) 5 mg PO BID Held on 03/16/25. Instructions: Resume on 03/21/25. You may resume Eliquis 3 days after surgery atorvastatin 20 mg PO BEDTIME fluticasone propionate 50 mcg/actuation 2 sprays intranasal DAILY gabapentin 300 mg PO TID glipizide 5 mg PO QAM hydrochlorothiazide 25 mg PO QAM losartan 100 mg PO QAM melatonin 20 mg PO BEDTIME metformin ER 1,000 mg PO BID methocarbamol 750 mg PO BEDTIME PRN metoprolol succinate ER 100 mg PO QAM pantoprazole 40 mg PO BEDTIME spironolactone 50 mg PO BEDTIME tiotropium bromide (Spiriva with HandiHaler) 1 cap inhalation DAILY HPI Comments Details: This is a 70-year-old man with a history of hypertension, type 2 diabetes, atrial fibrillation on Eliquis, COPD and obstructive sleep apnea for which she has an implanted I he also has 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 He had some symptoms of thoracic radiculopathy were treated with injections in the pain Clinic. Recently he has had a decompression of lumbar nerve roots at L4-5 with good results. He is here primarily because he presented to the [facility] Emergency room on 01/17/2025 with left-sided neck pain for which she underwent a CTA of the head and neck which is suspicious for a high-grade stenosis of the origin of the left vertebral artery with normal carotids with calcium deposit at the carotid bifurcation but less than 20% stenosis. He was referred here for evaluation of the assumed left vertebral stenosis. On reviewing the CTA films the origin of the left vertebral artery is suboptimal it does seem to loop and there may be a stenosis at the origin. The remainder of the arteries a wide open including the left vertebral artery. He is asymptomatic and has not had any evidence of posterior circulation stroke. He had an MRI of the brain done in [place] which was not available for review. In terms of stroke risk factors he has hypertension which is not well-controlled, type 2 diabetes with sugars running between 110 and 180. I do not have his last A1c. He smoked for about 8 years but quit 30 years ago. There is no family history of stroke. nspire device [facility] Medical History (Updated 05/05/25 @ 09:42 by Tez Li MD) Osteoarthritis GERD (gastroesophageal reflux disease) Mild emphysema Pulmonary nodule Renal cyst DUNCAN (nonalcoholic steatohepatitis) Barretts esophagus Sleep apnea Atrial fibrillation Diabetes HTN (hypertension) On anticoagulant therapy Elevated cholesterol Surgical History Hx of lumbar discectomy History of esophagogastroduodenoscopy (EGD) H/O colonoscopy History of bronchoscopy History of total bilateral knee replacement History of right shoulder replacement History of cardiac ablation for atrial fibrillation Hx of repair of rotator cuff Social History Are you a primary day care provider to a significant other at home: No Do you presently have visiting nurse or other home services: No Patient Tobacco Use Status: Former Tobacco user Tobacco use type: Cigarette Years Smoked: 18 Review of Systems Const Reports weight gain Eyes Reports blurry vision ENT Details: hearing loss Card Reports dyspnea Resp Reports dyspnea Musc Reports back pain Physical Exam Neuro Other: ?Mini Mental Status Exam Level of Consciousness:?Alert.? Orientation:?Knows correct year, month, date, day and season.?Knows correct city, county and state. Knows correct location and floor.? Registration:?Able to register 3 objects.? Attention:?Serial 7's performed accurately.? Recall:?Able to recall 3 out of 3 objects.? Language:?Normal spontaneous speech, fluency, repetition, naming, comprehension, reading, and writing.? Total Score:?30/30.? Neurological Abnormal neurological findings:??none.? Mental Status:?Alert and oriented X 3.?Normal attention, orientation, memory, and affect.? Cranial Nerves:?Pupils are equal, round and reactive to light. Fundoscopy shows normal disc bilaterally. External occular muscles are intact. Visual ricks are full, no ptosis. Face is symmetrical, no facial weakness or droop. Facial sensations are normal. Tongue protrudes in midline. Palate elevates symmetrically. Shoulder shrugging is normal.? Motor Examination:?Normal muscle tone, bulk and strength.?No atrophy or fasciculations.?No drift of the extended upper extremities.?Deep tendon reflexes are 2+.?Plantars are flexor.? Motor Strength:? Proximal Muscles (out of 5):?5 Distal Muscles (out of 5):?5 Neck Flexors (out of 5):?5 Neck Extensors (out of 5):?5 Deltoid (out of 5):?5 Biceps (out of 5):?5 Triceps (out of 5):?5 Serratus Anterior (out of 5):?5 Wrist Extensors (out of 5):?5 APB (out of 5):?5 Finger Spread (out of 5):?5 Ileopsoas (out of 5):?5 Quadriceps (out of 5):?5 Hamstrings (out of 5):?5 Tibialis Anterior (out of 5):?5 Peronei (out of 5):?5 EDB (out of 5):?5 Gastrocnemius (out of 5):?5 Straight Leg Raising:?90 degrees.? Sensory Exam:?Normal light touch, temperature, pinprick, vibration and joint-position sensations.?Rhomberg sign is absent.? Coordination:?No ataxia,?no titubation,?ucwcaa-qr-fdfu, wtmh-lkxn-xcha test, and rapid alternating movements were normal.? Gait Exam:?Within normal limits.? Cerebellar Signs:?Vdtbor-jz-ctbm and iouu-fe-opro is normal.?No dysdiadochokinesia.? Extrapyramidal System:?No tremor or?rigidity, normal facial expressions.?No bradykinesia. No bradyphrenia. Normal arm swing and posture. No propulsion or retropulsion.? Speech:?Normal,?no dysphasia or dysarthria.? General Examination GENERAL APPEARANCE:??normal,?in no acute distress?,?normal,?in no acute distress.? HEAD:??normocephalic,?atraumatic.? EYES:??sclera non-icteric,?conjunctiva clear.? EARS:??auditory canal clear,?tympanic membrane intact, clear.? NOSE:??no lesions.? ORAL CAVITY:??gums normal,?mucosa moist,?no lesions.? THROAT:??clear.? NECK/THYROID:??no cervical lymphadenopathy,?thyroid normal,?neck supple, full range of motion,?no carotid bruit.? SKIN:??no rashes,?no significant birthmarks.? HEART:??S1, S2 normal,?no murmurs?,?S1, S2 normal,?no murmurs.? LUNGS:??clear anteriorly and posteriorly?,?clear anteriorly and posteriorly.? CHEST:??no gross rib deformity,?clear to auscultation.? BACK:??normal exam of spine.? MUSCULOSKELETAL:??normal.? EXTREMITIES:??no edema?,?no edema.? PERIPHERAL PULSES:??normal.? PSYCH:??alert, oriented,?cognitive function intact,?cooperative with exam?,?alert, oriented,?cognitive function intact,?cooperative with exam.? Assessment & Plan Assessment & Plan (1) Asymptomatic vertebral artery stenosis: Code(s): I65.09 - Occlusion and stenosis of unspecified vertebral artery Category: Medical (2) Radiculopathy, thoracic region: Code(s): M54.14 - Radiculopathy, thoracic region Category: Medical Plan CTA of neck to confirm stenosis of origin of left vertebral artery. If it is confirmed, will refer to vascular interventionalist for possible vertebral artery stent Orders: Orders CT angio neck 3 Weeks I65.09 - Occlusion and stenosis of unspecified vertebral artery Coding Level of Care Code New Pt Level 5 (77016) Diagnoses Asymptomatic vertebral artery stenosis I65.09 Radiculopathy, thoracic region M54.14
--- OUTSIDE RECORDS SUMMARY | 2025-05-05 09:39 | XMS_ITS | Encounter Summary ---
Author Organization [facility] Address [address] [place] [address] Care Team Providers Care Wedding Planning Internship Name Role Phone Horacio Mcduffie MD Primary Care Provider [phone] Reason for Referral * Consultation (Routine) - Pending Review Specialty Diagnoses / Procedures Referred By Brianda muller Referred To Contact Ophthalmology Diagnoses Cortical age-related cataract of both eyes Horacio Mcduffie MD [address] [place], [place] Phone: tel: fax: Referral ID Status Reason Start Date Expiration Date Visits Requested Visits Authorized [id number] Pending Review Specialty Services Required 05/03/2026 1 1 Reason for Visit * Reason Onset Date Comments Referral 04/30/2025 Encounter Details Date Type Department Care Team ([facility] Contact Info) Description 04/30/2025 Telephone Adult Medicine [facility] [address] [place] [phone] Horacio Mcduffie MD [address] [place], [place] Social History Tobacco Use Types Packs/Day Years Used Date Smoking Tobacco: Former Cigarettes 0 Q uit: 06/24/1994 Smokeless Tobacco: Never Alcohol [...] as of this encounter Progress Notes * Horacio Mcduffie MD - 05/03/2025 8:08 AM EST ok * Sd Ward - 04/30/2025 3:46 PM EST Referral Request: What insurance does the patient have today? [facility] Referrals cannot be processed if the insurance is not accurate. If the insurance listed above in red is NO BILLING INFORMATION FOUND FOR THIS ENCOUTNER The patients correct insurance must be obtained and registered in [facility] or their referral can not be processed. Who is calling to request this referral? Pt's spouse If the caller is not the patient, what is their name? Kalyani Ask the patient WHO referred them to this specialty: Patient self referred FIRST and LAST NAME of SPECIALIST PATIENT is seeing: Dr Sergio Lange What specialty is this? Ophthalmology DIAGNOSIS Patient is being seen for (Not a body part or a procedure): cataracts Have you seen this SPECIALIST for this PROBLEM/DX before? If YES, when? No Have you checked REVIEW or the APPT DESK to see if this referral has already been done or has visits left? yes Is this visit: Initial Visit Address of Specialist: [address] [place] [address] Phone # of Specialist: [phone] Fax #: (if applicable): Does patient have an appointment scheduled?: yes Date of appointment- (including a retro-request): 05/17/25 Is this appointment related to: Not MVA, worker compensation, or surgery related documented in this encounter Plan of Treatment Upcoming Encounters Date Type Department Care Team ([facility] st Contact Info) Description 06/11/2025 1:00 PM EST Appointment [facility] CT Scan [address] [place] [address] Scheduled Referrals Name Type Priority Associated Diagnoses Order Schedule Ambulatory referral to Ophthalmology Outpatient Referral Routine Cortical age-related cataract of both eyes 1 Occurrences starting 05/03/2025 until 05/03/2026 documented as of this encounter Visit Diagnoses Diagnosis Cortical age-related cataract of both eyes- Primary documented in this encounter Care Teams Wedding Planning Internship Relationship Specialty Start Date End Date Horacio Mcduffie MD [address] [place] [id number] PCP - General Internal Medicine 09/12/20 documented as of this encounter
--- OUTSIDE RECORDS SUMMARY | 2025-05-05 09:39 | XMS_ITS | Clinical Summary ---
Author Organization [facility] Address [address] [address] Phone Care Team Providers Care Vp Ad Sales West Name Role Phone Prabhjot Mcduffie MD Primary [...] 04/07/2020 Obstructive sleep apnea 07/15/2018 Overview (06/23/2024): [facility] Home Polysomnogram: Date 07/12/2018; AHI 61, [...] [employer] [employer] PREFERRED HMO REPLACEMENT Care Teams Vp Ad Sales West Relationship Specialty Start Date End Date Prabhjot Mcduffie MD [address] [place] [id number] PCP - General 10/11/22 Additional Source Comments The information contained in this document represents components of the legal health record. It is not the complete legal health record.[facility]
--- OUTSIDE RECORDS SUMMARY | 2025-05-05 09:39 | XMS_ITS | Clinical Summary ---
Author Organization [employer] Address [address] [place] [address] Care Team Providers Care Bottling Supervisor Name Role Phone Prabhjot Mcduffie MD Primary Care Provider [phone] Allergies Active Allergy Reactions Criticality Noted Date [...] retinopathy 11/2021 Presbyopia of both eyes 05/15/2022 Encounters Date Type Department Care Team Description 04/27/2025 9:30 AM EST Office Visit [place] [facility] OPTOMETRY [address] [place] [address] Renan Blanco, YASHIRA Combined forms of age-related cataract of both eyes (Primary Dx); Anisometropia 04/27/2025 Travel from Last 3 Months Social History Tobacco [...] Industry Job Start Date Job End Date [employer] Not on file Not on file Not [...] Foot Exam 1965 Alcohol/Substance Use Screening 1967 Tobacco Screening 1967 Hepatitis C Screening 1973 RSV Patients and Patients Aged 60 years or older (1 - Risk 50-74 years 1-dose series) 2005 Zoster Vaccines (1 of 2) 2005 Hepatitis A Vaccines (2 of 2 - Risk 2-dose series) 08/02/2016 01/31/2016 COVID-19 Vaccine ( season) 2025 06/16/2022, 04/21/2021, 09/07/2020, Additional history exists Influenza Vaccine (#1) 2025 , 03/13/2023, 03/13/2023, Additional history exists Diabetes: Hemoglobin A1C 04/20/2025 01/18/2025 Colonoscopy 08/16/2025 08/17/2015, 05/22/2005 Colorectal Cancer Screening 08/16/2025 Diabetes: Urine Protein Screening 01/18/2026 01/18/2025 Eye Exam 04/27/2027 04/27/2025, 04/10, 04/27/2025, Additional history exists DTaP/Tdap/Td Vaccines (3 - [...] on patient's age to complete this topic Goals Goal Patient Goal Type Associated Problems Recent Progress Patient-Stated? Author Help patients manage their type 2 diabetes Care Plan Help patients manage their type 2 diabetes No Renan Blanco OD Weekly blood pressure task Care Plan Weekly blood pressure task No Renan Blanco OD Help patients manage their type 2 diabetes Care Plan Help patients manage their type 2 diabetes No Renan Blanco OD Patient has chronic kidney disease Care Plan Patient has chronic kidney disease No Renan Blanco OD Weekly blood pressure task Care Plan Weekly blood pressure task No Renan Blanco OD Patient has chronic kidney disease Care Plan Patient has chronic kidney disease No Renan Blanco OD Procedures Procedure Name Priority Date/Time Associated Diagnosis Comments COLONOSCOPY Routine 08/17/2015 12:00 AM EST from Last 3 Months or Most Recently Relevant to Health Maintenance Results * COLONOSCOPY: [facility] (08/17/2015 12:00 AM EST) Anatomical Region Laterality Modality Endoscopy 08/17/2015 Narrative 08/17/2015 12:00 AM EST Refer to Fovea for result details Legacy Procedure: COLONOSCOPY: [facility] Procedure Note Provider, MD Bella - 10/04/2022 Refer to Fovea for result details Legacy Procedure: COLONOSCOPY: [facility] us Historical Provider ENDOSCOPY PROCEDURE ORDER PORTIA Final Result from Last 3 Months or Most Recently Relevant to Health Maintenance Additional Health Concerns Active Problems Noted Date Diagnosed Date Help patients manage their type 2 diabetes 04/27 Weekly blood pressure task 04/27/2025 Help patients manage their type 2 diabetes 04/27 Patient has chronic kidney disease 04/27/2025 Weekly blood pressure task 04/27/2025 Patient has chronic kidney disease 04/27/2025 Insurance [employer] [place] [id number] EYE MED [facility] DUAL PLAN [employer] [employer] Care Teams Bottling Supervisor Relationship Specialty Start Date End Date Prabhjot Mcduffie MD PCP - General Internal Medicine 05/28/22
--- OUTSIDE RECORDS SUMMARY | 2025-05-05 09:39 | XMS_ITS | Clinical Summary ---
Author Organization [facility] Address [address] [place] [phone] Phone Care Team Providers Care Radio Message Router Name Role Phone Horacio Mcduffie MD Primary Care Provider [phone] Allergies Active Allergy Reactions Criticality Noted Date [...] 18 g 11 07/01/19 25 2025 Active atorvastatin (LIPITOR) 20 mg tablet TAKE ONE TABLET BY MOUTH EVERY DAY 90 tablet 1 12/02/19 25 Active spironolactone (ALDACTONE) 25 mg tablet TAKE ONE TABLET BY MOUTH EVERY DAY 90 tablet 1 12/02/19 25 Active metoprolol succinate (TOPROL-XL) 50 mg 24 hr tablet TAKE TWO TABLETS BY MOUTH EVERY DAY 180 tablet 1 12/02/19 25 Active hydroCHLOROthiazi de (HYDRODIURIL) 25 mg tabletIndications :Primary hypertension TAKE ONE TABLET BY MOUTH EVERY DAY 90 tablet 1 12/02/19 25 Active ondansetron ODT (ZOFRAN-ODT) 4 mg disintegrating tabletIndications :Nausea Dissolve 1 tablet (4 mg total) on top of the tongue every 8 (eight) hours if needed for nausea or vomiting. 30 tablet 2 12/23/19 25 Active losartan (COZAAR) 100 mg tablet TAKE ONE TABLET BY MOUTH EVERY DAY 90 tablet 1 01/01/20 25 Active gabapentin (NEURONTIN) 600 mg tablet Take 1 tablet (600 mg total) by mouth 2 (two) times a day. 180 each 02/24/20 25 2025 Active benzonatate (TESSALON) 100 mg capsuleIndication s:Subacute cough,Chronic obstructive pulmonary disease, unspecified COPD type (CMS/HCC V24, CMS/HCC V28) Take 1 capsule (100 mg total) by mouth 3 (three) times a day if needed for cough. 20 capsule 1 02/26/20 25 Active cyclobenzaprine (FLEXERIL) 10 mg tabletIndications :Cervicalgia Take 1 tablet (10 mg total) by mouth 3 (three) times a day if needed for muscle spasms. 30 tablet 1 02/26/20 Active pantoprazole (PROTONIX) 40 mg EC tablet Take 1 tablet (40 mg total) by mouth 2 (two) times a day. DO NOT CRUSH CHEW OR SPLIT 180 tablet 1 02/26/20 Active amLODIPine (NORVASC) 10 mg tablet Take 1 tablet (10 mg total) by mouth 1 (one) time each day. 90 tablet 1 02/26/20 Active glipiZIDE (GLUCOTROL) 5 mg tablet Take 1 tablet (5 mg total) by mouth 1 (one) time each day. 90 tablet 1 02/26/20 Active tiotropium (SPIRIVA) 18 mcg per inhalation capsuleIndication s:Subacute cough,Chronic obstructive pulmonary disease, unspecified COPD type ([facility] V24, [facility] V28) Place 1 capsule (18 mcg total) into inhaler and inhale 1 (one) time each day. 1 each 02/26/20 25 2025 Active metFORMIN XR (GLUCOPHAGE-XR) 500 mg 24 hr tablet TAKE FOUR TABLETS BY MOUTH EVERY DAY 360 tablet 1 04/23/20 Active metFORMIN XR (GLUCOPHAGE-XR) 500 mg 24 hr tablet Take 4 tablets (2,000 mg total) by mouth 1 (one) time each day. 360 tablet 1 10/03/192024 Discontinued Active Problems Problem Noted Date Diagnosed Date Abnormal computed tomography angiography of head 01/18/2025 Castro's esophagus 05/04/2024 DM (diabetes mellitus), type 2 with neurological complications ([facility] V24, [facility] V28) 05/04/2024 Uncontrolled hypertension 05/04/2024 Lumbar herniated disc 05/04/2024 Overview (05/04/2024): left sided S/P TKR (total knee replacement) 05/20/2022 Overview (05/04/2024): right Paroxysmal atrial fibrillation ([facility] V24, [facility] V28) 05/04/2020 Overview (05/04/2024): [facility] Hypercholesteremia 04/07/2020 Obstructive sleep apnea 07/15/2018 Overview (05/04/2024): [facility] Home Polysomnogram: Date 07/12/2018; AHI 61, Unclassified apneas 0; Obstructive apneas 132; Central apneas 1; Mixed apneas 0; hypopneas 122; average oxygen saturation 90% (lowest 77% with saturations <88% for 5% or more of study) [facility] Polysomnogram treatment study. Date 08/24/2018. SE 76 [...] renal complications (CMS/HCC V24, CMS/HCC V28) 07/05/2017 Erectile dysfunction 07/05/2017 Fatty liver 07/05/2017 Microalbuminuria 07/05/2017 DUNCAN (nonalcoholic steatohepatitis) 07/05/2017 Renal cyst 07/05/2017 Overview (05/04/2024): Left [address] 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 Polyp of colon 06/24/2017 Encounters Date Type Department Care Team Description 04/30/2025 Telephone Adult Medicine - [place] [address] [place] [phone] Horacio Mcduffie MD 03/18/2025 Results Follow-Up Adult Medicine - [place] [address] [place] [phone] Annalise Caravjal NP 03/12/2025 7:47 AM EDT - 03/12/2025 11:59 PM EDT Hospital Encounter [facility] Pulmonary [address] [place] [phone] Discharge Disposition: Home or Self Care 03/02/2025 Telephone Adult Medicine [facility] [address] [place] [address] Horacio Mcduffie MD 02/26/2025 Telephone Adult [facility] [address] [place] [address] Horacio Mcduffie MD 02/25/2025 3:00 PM EDT Office Visit Adult [address] [phone] Annalise Carvajal NP Essential hypertension (Primary Dx); Vertebral artery stenosis, unspecified laterality; Cervicalgia; Subacute cough; Chronic obstructive pulmonary disease, unspecified COPD type ([facility]/HCC V24, CMS/HCC V28) from Last 3 Months Immunizations Immunization Administration Dates Next Due Hepatitis B (Qllqeyk-A-Aglpf , Recombivax HB-Adult) 19yo and older 07/06/2020,03/09/2020,02/03/2020 [...] mellitus), t ype 2 with neurological complications ([facility]) Insomnia 07/05/2017 DX:Insomnia DUNCAN (nonalcoholic steatohepatitis) [...] 0 Q uit: 06/24/1994 Smokeless Tobacco: Never Tobacco [...] 02/25/2025 2:55 PM EDT Plan of Treatment Upcoming Encounters Date Type Department Care Team (Late st Contact Info) Description 06/11/2025 1:00 PM EST Appointment [facility] CT Scan [address] [place] [address] Health Maintenance Due Date Last Done Comments [...] this topic Medical Devices Implanted Type Area Noodle Maker Device Identifier Shelf Expiration Date Model / Serial / Lot Marker Cobra Chrislock - Sn/A - [id number] Implanted:Qt y: 1 on 09/30/2024 by Amanda Hemphill MD at [facility] Implants Left: Lung COVIDIEN SUPERDIMENS[employer] [id number] 08/06/2028 [id number] / N/A / [id number] Description:LLL Implants Implants Right: Chest Wall inspired [...] Chronic obstructive pulmonary disease, unspecified COPD type ([facility] V24, [facility] V28) EXTERNAL MRI REPORT 02/16/2025 MICROALBUMIN CREATININE URINE RATIO Routine 01/18/2025 4:13 PM EDT Hypertension, unspecified type BASIC METABOLIC PANEL Routine 01/18/2025 4:06 PM EDT Hypertension, unspecified type HEMOGLOBIN A1C Routine 01/18/2025 4:06 PM EDT Type 2 diabetes mellitus with diabetic microalbuminuria, without long-term current use of insulin ([facility] V24, [facility] V28) LIPID PANEL WITH REFLEX TO DIRECT LDL Routine 01/18/2025 4:06 PM EDT Hypercholesteremia HEPATITIS C ANTIBODY Routine 07/15/2024 9:45 AM EST Subacute cough RUQ abdominal pain Intercostal pain Transaminitis DIABETES FOOT EXAM Routine 03/25/2024 COLONOSCOPY Routine 08/17/2015 from Last 3 Months or Most Recently Relevant to Health Maintenance Results * External Xray Report (03/18/2025) Only the most recent of2 resultswithin the time period is included. Anatomical Region Laterality Modality Radiographic Marie ging us Provider [facility] IMG XR PROCEDURES Final Result * Pulmonary [...] Onbase IMG MRI PROCEDURES Final Result * (ABNORMAL) Microalbumin creatinine urine ratio (01/18/2025 4:13 PM EDT) Creatinine, Urine 79.0 mg/dL LAB CHEMISTRY METHOD 01/18/2025 6:[address] [facility] Microalb, Ur 137.0(H) 0.0 - 29.0 mg/L LAB CHEMISTRY METHOD 01/18/2025 6:[address] [facility] Microalb/Crea t Ratio 173(H) <30 mg/g creat LAB CHEMISTRY METHOD 01/18/2025 6:[address] [facility] Urine Urine specimen obtained by clean catch procedure / Unknown Non-blood Collection / Unknown 01/18/2025 4:13 PM EDT 01/18/2025 4:13 PM EDT Maximiliano Hua MD LAB URINE ORDERABLES Final Res ult [facility] [address] [place] [address], [place] [phone] * Lipid panel with reflex to direct LDL (01/18/2025 4:06 PM EDT) Cholesterol 119 0 - 200 mg/dL LAB CHEMISTRY METHOD 01/18/2025 6:[address] [facility] Triglycerides 137 0 - 150 mg/dL LAB CHEMISTRY METHOD 01/18/2025 6:[address] [facility] HDL 42 >=40 mg/dL LAB CHEMISTRY METHOD 01/18/2025 6:[address] [facility] LDL Calculated 50 0 - 100 mg/dL LAB CHEMISTRY METHOD 01/18/2025 6:[address] [facility] Comment:Estimated LDL Calcul ated using equation: Total cholesterol - HDL cholesterol - (Triglycerides/5) VLDL Cholesterol Harish 27.4 mg/dL LAB CHEMISTRY METHOD 01/18/2025 6:[address] [facility] Non HDL Chol. (LDL+VLDL) 77 <145 mg/dL LAB CHEMISTRY METHOD 01/18/2025 6:[address] [facility] Chol/HDL Ratio 2.8 0.0 - 4.4 LAB CHEMISTRY METHOD 01/18/2025 6:[address] [facility] Blood Venous blood specimen / Unknown Venipuncture / Unknown 01/18/2025 4:06 PM EDT 01/18/2025 4:06 PM EDT us Annalise Carvajal NP LAB BLOOD ORDERABLES Final Res ult [facility] [address] [place] [address], [place] [phone] * (ABNORMAL) Hemoglobin A1c (01/18/2025 4:06 PM EDT) Hemoglobin A1C 7.4(H) <6.5 % LAB CHEMISTRY METHOD 01/18/2025 9:[address] [facility] Mean Bld Glu Estim. 166 mg/dL LAB CHEMISTRY METHOD 01/18/2025 9:17 PM [facility] Blood Venous blood specimen / Unknown Venipuncture / Unknown 01/18/2025 4:06 PM EDT 01/18/2025 4:06 PM EDT us Annalise Carvajal OPERATING ROOM SCHEDULER LAB BLOOD ORDERABLES Final Res ult [facility] [address] [place] [address], * (ABNORMAL) Basic metabolic panel (01/18/2025 4:06 [...] 73m2 LAB CHEMISTRY METHOD 01/18/2025 6:[address] [facility] Comment:Calculation based on the Chronic Kidney Disease Epidemiology Collaboration (CKD-EPI) equation refit without adjustment for race. BUN/Creatinine Ratio 16.5 LAB CHEMISTRY METHOD 01/18/2025 6:[address] [facility] Calcium 9.5 8.5 - 10.5 mg/dL LAB CHEMISTRY METHOD 01/18/2025 6:[address] [facility] Blood Venous blood specimen / Unknown Venipuncture / Unknown 01/18/2025 4:06 PM EDT 01/18/2025 4:06 PM EDT Maximiliano Hua MD LAB BLOOD ORDERABLES Final Res ult Performing Organization Address [facility]/ZIP Co de Phone Number [facility] [address] [place] [address], [place] [phone] * Hepatitis C antibody (07/15/2024 9:45 AM EST) [facility] Hepatitis C Antibody Negative Negative LAB CHEMISTRY METHOD 07/15/2024 5:[address] [facility] Blood Venous blood specimen / Unknown Venipuncture / Unknown 07/15/2024 9:45 AM EST 07/15/2024 9:45 AM EST Venkata Cortes MD LAB BLOOD ORDERABLES Fin al Result [facility] [address] [place] [address], [place] [phone] * Diabetes Foot Exam (03/25/2024) [facility] Diabetes: Annual Foot Exam Abstracted Bella Rowley MD HEALTH MAINTENANCE Final Result * Colonoscopy (08/17/2015) [facility] Colonoscopy Abstracted, no interpretation Anatomical Region Laterality Modality Other us Historical Provider HEALTH MAINTENANCE Final Result from [...] currently active code status orders. Care Teams Radio Message Router Relationship Specialty Start Date End Date Horacio Mcduffie MD [address] [place] [phone] PCP - General Internal Medicine 09/12/20
--- OUTSIDE RECORDS SUMMARY | 2025-05-05 09:39 | XMS_ITS | Encounter Summary ---
Author Organization [facility] Address [address] [place] [address] Care Team Providers Care Insurance Premium Auditor Name Role Phone Horacio Mcduffie MD Primary Care Provider [phone] Encounter Details Date Type Department Care Team (Late Contact Info) Description 03/18/2025 Results Follow-Up Adult Medicine - [place] [address] [place] [phone] Annalise Carvajal NP [address] [place] [address] Social History Tobacco Use Types Packs/Day Years [...] as of this encounter Plan of Treatment Upcoming Encounters Date Type Department Care Team (Late st Contact Info) Description 06/11/2025 1:00 PM EST Appointment [facility] CT Scan [address] [place] [address] documented as of this encounter Visit Diagnoses Not on filedocumented in this encounter Care Teams Insurance Premium Auditor Relationship Specialty Start Date End Date Horacio Mcduffie MD [address] [place] [phone] PCP - General Internal Medicine 09/12/20 documented as of this encounter
--- OUTSIDE RECORDS SUMMARY | 2025-05-05 09:39 | XMS_ITS | Clinical Summary ---
Author Organization [facility] Facility Address [address] [address] Care Team Providers Care Leg Breaker Name Role Phone Unavailable Primary Care Provider Unavailabl e Social History Tobacco Use Types Packs/Day Years [...]
== END 2025-05-05 09:48 | disposition home or self-care (01) ==
LOC: HO.HSM 09:02
PROVIDERS: PCP Pediatrics; Visit Provider Psychiatry & Neurology Neurology
DX: I65.09 Occlusion and stenosis of unspecified vertebral artery (principal); M54.14 Radiculopathy, thoracic region
CPT/HCPCS: 99205

== ENCOUNTER → 2025-05-05 09:01 | Outpatient (BNVA) | payer MEDICARE, SELFPAY | PROVIDERS: PCP Pediatrics; Visit Provider Psychiatry & Neurology Neurology | DX: I65.02 Occlusion and stenosis of left vertebral artery (principal); M54.14 Radiculopathy, thoracic region; Z87.891 Personal history of nicotine dependence | CPT/HCPCS: 99202 ==

== ENCOUNTER 2025-05-18 06:15 | Outpatient (REF) | payer MEDICARE, SELFPAY ==
--- OUTSIDE RECORDS SUMMARY | 2024-06-23 11:56 | XMS_ITS | Encounter Summary ---
Author Organization [facility] Address [address] [facility] [address] [place] [address] Phone Care Team Providers Care Ending Machine Operator Name Role Phone Horacio Mcduffie MD Primary Care Provider [phone] Encounter Details Date Type Department Care Team (Late st Contact Info) Description 06/23/2024 11:56 AM EST Hospital Encounter [facility] [address] [place] [phone] Agata Shipman FNP [address] [place] [address] [email or web address] Social History Tobacco Use Types Packs/Day Years Used Date Smoking Tobacco: Former Cigarettes Smokeless Tobacco: Never Education Answer Date Recorded Are you interested in more education? Not on yung e 10/11/2022 Are you concerned about learning? Not on file 10/11/2022 No 10/11/2022 No 10/11/2022 Digital Access Answer Date Recorded No 11/05/2022 No 11/05/2022 Reliable internet access at home? Not on file 11/05/2022 Device with a working camera? Not on file Sex and Gender Information Value Date Recorded Sex Assigned at Not on file Legal Sex Male 9:55 PM EDT Gender Identity Not on file Sexual Orientation Not on file documented as of this encounter Plan of Treatment Not on file documented as of this encounter Procedures Procedure Name Priority Date/Time Associated Diagnosis Comments XR CHEST PA AND LATERAL 2 VIEWS Urgent/patient waiting 06/23/2024 12:00 PM EST Right-sided thoracic back pain, unspecified chronicity documented in this encounter Results * XR CHEST PA AND LATERAL 2 VIEWS (06/23/2024 12:00 PM EST) Anatomical Region Laterality Modality Chest Computed Radiogr aphy 06/23/2024 12:3 2 PM EST Impressions 06/23/2024 12:34 PM EST No acute abnormality. Narrative 06/23/2024 12:34 PM EST XR CHEST PA AND LATERAL 2 VIEWS Referring clinician's provided indication for this examination in [facility]: Pain; right side mid back and rib pain, with cough, white phlegm for 2 months. COMPARISON: None FINDINGS: Devices/Tubes/Lines: Neurostimulator device in the right anterior chest wall with lead coursing up the neck. Lungs: No focal consolidation or pulmonary edema. Pleura: No pleural effusions or pneumothorax. Heart/Mediastinum: Normal cardiomediastinal silhouette. Bones/Soft Tissues: Degenerative changes of the spine. Left humeral head suture anchors. Partially imaged right shoulder arthroplasty. Healed left clavicular fracture. Procedure Note Kimberly Perdomo MD - 06/23/2024 XR CHEST PA AND LATERAL 2 VIEWS Referring clinician's provided indication for this examination in [facility]:Pain; right side mid back and rib pain, with cough, white phlegm for 2months. COMPARISON: None FINDINGS: Devices/Tubes/Lines: Neurostimulator device in the right anterior chestwall with lead coursing up the neck. Lungs: No focal consolidation or pulmonary edema. Pleura: No pleural effusions or pneumothorax. Heart/Mediastinum: Normal cardiomediastinal silhouette. Bones/Soft Tissues: Degenerative changes of the spine. Left humeral headsuture anchors. Partially imaged right shoulder arthroplasty. Healed leftclavicular fracture. IMPRESSION: No acute abnormality. Agata DARBY IMG XR CHEST Final Resul t documented in this encounter Visit Diagnoses Not on filedocumented in this encounter Care Teams Ending Machine Operator Relationship Specialty Start Date End Date Horacio Mcduffie MD [address] [place] [id number] PCP - General 10/11/22 documented as of this encounter Additional Source Comments The information contained in this document represents components of the legal health record. It is not the complete legal health record.[facility]
--- NOTE | ~2025-05-18 | FL_ITS ---
EXAMINATION: FL GUIDANCE ONLY HISTORY: M54.14 - Radiculopathy, thoracic region COMPARISON: None available. TECHNIQUE: Fluoroscopy time: 35 seconds. Cumulative Dose: 9.70 mGy. DAP: 1397.30 mGycm2 Images: 3. FINDINGS: Fluoroscopic spot films of the lower thoracic spine demonstrate a needle in place and intrathecal contrast material. FL/FL guidance in treatment room IMPRESSION: Fluoroscopy during procedure. Please see procedure report for additional information. Electronically signed by: Avery Cunningham MD 05/18/2025 11:14 AM BRIANNA
--- OUTSIDE RECORDS SUMMARY | 2025-05-18 06:20 | XMS_ITS | Clinical Summary ---
Author Organization [facility] Address [address] [facility] [address] [place] [phone] Phone Care Team Providers Care Fancy Packer Name Role Phone Horacio Mcduffie MD Primary Care Provider [phone] Allergies Active Allergy Reactions Criticality Noted Date [...] 04/07/2020 Obstructive sleep apnea 07/15/2018 Overview (06/23/2024): [facility] Home Polysomnogram: Date 07/12/2018; AHI 61, [...] [employer] PREFERRED H[employer] REPLACEMENT Care Teams Fancy Packer Relationship Specialty Start Date End Date Horacio Mcduffie MD [address] [place] [phone] PCP - General 10/11/22 Additional Source Comments The information contained in this document represents components of the legal health record. It is not the complete legal health record.[facility]
--- OUTSIDE RECORDS SUMMARY | 2025-05-18 06:20 | XMS_ITS | Clinical Summary ---
Author Organization [facility] Address [address] [place] [phone] Phone Care Team Providers Care Manager Human Capital Name Role Phone Horacio Mcduffie MD Primary Care Provider [phone] Allergies Active Allergy Reactions Criticality Noted Date [...] unspecified COPD type (CMS/HCC V24, CMS/HCC V28) Place 1 capsule (18 mcg total) [...] mellitus), type 2 with neurological complications 05/04/2024 Uncontrolled hypertension 05/04/2024 Lumbar herniated disc 05/04/2024 Overview (05/04/2024): left sided S/P TKR (total knee replacement) 05/20/2022 Overview (05/04/2024): right Paroxysmal atrial fibrillation 05/04/2020 Overview (05/04/2024): [place] Hypercholesteremia 04/07/2020 Obstructive [...] type 2 with renal compli cations 07/05/2017 Erectile dysfunction 07/05/2017 Fatty liver 07/05/2017 Microalbuminuria 07/05/2017 DUNCAN (nonalcoholic steatohepatitis) 07/05/2017 Renal cyst 07/05/2017 Overview (05/04/2024): Left [address] 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 Polyp of colon 06/24/2017 Encounters Date Type Department Care Team Description 04/30/2025 Telephone Adult Medicine - [place] [address] [place] [phone] Horacio Mcduffie MD 03/18/2025 Results Follow-Up Adult Medicine - [place] [address] [place] [address] Annalise Carvajal NP 03/12/2025 7:47 AM EDT - 03/12/2025 11:59 PM EDT Hospital Encounter [facility] Pulmonary [address] [place] [address] Discharge Disposition: Home or Self Care 03/02/2025 Telephone Adult [address] [phone] Horacio Mcduffie MD 02/26/2025 Telephone Adult [address] [phone] Horacio Mcduffie MD 02/25/2025 3:00 PM EDT Office Visit Adult [address] [phone] Annalise Carvajal NP Essential hypertension (Primary Dx); Vertebral artery stenosis, unspecified laterality; Cervicalgia; Subacute cough; Chronic obstructive pulmonary disease, unspecified COPD type (CMS/HCC V24, CMS/HCC V28) from Last 3 Months Immunizations Immunization Administration Dates Next Due Hepatitis B (Dfnnpee-H-Qrpda , Recombivax HB-Adult) 19yo and older 07/06/2020,03/09/2020,02/03/2020 [...] Orientation Straight 08/21/2024 12 :07 PM EDT Last Filed Vital Signs Vital Sign Reading [...] Info) Description 06/11/2025 1:00 PM EST Appointment [facility] CT Scan [address] [place] [phone] 06/15/2025 8:00 AM EST Office Visit Pulmonology - [place] [address] [facility] [address] [place] [phone] Amanda Hemphill MD [address] [place] [phone] Health Maintenance Due Date Last Done Comments [...] this topic Medical Devices Implanted Type Area Tankerman Device Identifier Shelf Expiration Date Model / Serial / Lot Marker Vivianra Superlock - Sn/A - [id number] Implanted:Qt y: 1 on 09/30/2024 by Amanda Hemphill MD at [facility] Imaging Implants Left: Lung [employer] SUPERDIMENS[employer] [id number] 08/06/2028 [id number] / N/A / [id number] Description:LLL Implants Implants Right: Chest Wall inspired [...] Chronic obstructive pulmonary disease, unspecified COPD type ([facility] V24, [facility] V28) EXTERNAL MRI REPORT 02/16/2025 MICROALBUMIN CREATININE URINE RATIO Routine 01/18/2025 4:13 PM EDT Hypertension, unspecified type BASIC METABOLIC PANEL Routine 01/18/2025 4:06 PM EDT Hypertension, unspecified type HEMOGLOBIN A1C Routine 01/18/2025 4:06 PM EDT Type 2 diabetes mellitus with diabetic microalbuminuria, without long-term current use of insulin ([facility] V24, [facility] V28) LIPID PANEL WITH REFLEX TO [...] with Bronchodilator, Spirometry (03/12/2025 9:02 AM EDT) Justuss Katie Pozo MD - 03/12/2025 9:04 AM [...] Anatomical Region Laterality Modality Magnetic Resonan ce us Provider [facility] IMG MRI PROCEDURES Final Result * (ABNORMAL) Microalbumin creatinine urine ratio (01/18/2025 4:13 PM EDT) Creatinine, Urine 79.0 mg/dL LAB CHEMISTRY METHOD 01/18/2025 6:29 PM EDT [facility] Microalb, Ur 137.0(H) 0.0 - 29.0 mg/L LAB CHEMISTRY METHOD 01/18/2025 6:29 PM EDT [facility] Microalb/Crea t Ratio 173(H) <30 mg/g creat LAB CHEMISTRY METHOD 01/18/2025 6:29 PM EDT [facility] Urine Urine specimen obtained by clean catch procedure / Unknown Non-blood Collection / Unknown 01/18/2025 4:13 PM EDT 01/18/2025 4:13 PM EDT us Maximiliano Hua MD LAB URINE ORDERABLES Final Res ult [facility] [address] [place] [address], [place] [phone] * Lipid panel with reflex to direct LDL (01/18/2025 4:06 PM EDT) Cholesterol 119 0 - 200 mg/dL LAB CHEMISTRY METHOD 01/18/2025 6:52 PM EDT [facility] Triglycerides 137 0 - 150 mg/dL LAB CHEMISTRY METHOD 01/18/2025 6:52 PM EDT [facility] HDL 42 >=40 mg/dL LAB CHEMISTRY METHOD 01/18/2025 6:52 PM EDT [facility] LDL Calculated 50 0 - 100 mg/dL LAB CHEMISTRY METHOD 01/18/2025 6:52 PM EDT [facility] Comment:Estimated LDL Calcul ated using equation: Total cholesterol - HDL cholesterol - (Triglycerides/5) VLDL Cholesterol Harish 27.4 mg/dL LAB CHEMISTRY METHOD 01/18/2025 6:52 PM EDT [facility] Non HDL Chol. (LDL+VLDL) 77 <145 mg/dL LAB CHEMISTRY METHOD 01/18/2025 6:52 PM EDT [facility] Chol/HDL Ratio 2.8 0.0 - 4.4 LAB CHEMISTRY METHOD 01/18/2025 6:52 PM EDT [facility] Blood Venous blood specimen / Unknown Venipuncture / Unknown 01/18/2025 4:06 PM EDT 01/18/2025 4:06 PM EDT us Annalise Carvajal NP LAB BLOOD ORDERABLES Final Res ult [facility] [address] [place] [address], [place] [phone] * (ABNORMAL) Hemoglobin A1c (01/18/2025 4:06 PM EDT) Hemoglobin A1C 7.4(H) <6.5 % LAB CHEMISTRY METHOD 01/18/2025 9:17 PM EDT [facility] Mean Bld Glu Estim. 166 mg/dL LAB CHEMISTRY METHOD 01/18/2025 9:17 PM [facility] Blood Venous blood specimen / Unknown Venipuncture / Unknown 01/18/2025 4:06 PM EDT 01/18/2025 4:06 PM EDT us Annalise Carvajal NP LAB BLOOD ORDERABLES Final Res ult [facility] [address] [place] [address], [place] [phone] * (ABNORMAL) Basic metabolic panel (01/18/2025 4:06 PM EDT) Sodium 134 133 - 145 mmol/L LAB CHEMISTRY METHOD 01/18/2025 6:50 PM [facility] Potassium 4.9 3.5 - 5.5 mmol/L LAB CHEMISTRY METHOD 01/18/2025 6:50 PM [facility] Chloride 100 96 - 110 mmol/L LAB CHEMISTRY METHOD 01/18/2025 6:50 PM [facility] CO2 30 21 - 32 mmol/L LAB CHEMISTRY METHOD 01/18/2025 6:50 PM [facility] Anion Gap 4 3 - 11 LAB CHEMISTRY METHOD 01/18/2025 6:50 PM [facility] Glucose 122(H) 70 - 100 mg/dL LAB CHEMISTRY METHOD 01/18/2025 6:50 PM [facility] BUN 14 5 - 25 mg/dL LAB CHEMISTRY METHOD 01/18/2025 6:50 PM [facility] Creatinine 0.85 0.70 - 1.30 mg/dL LAB CHEMISTRY METHOD 01/18/2025 6:50 PM [facility] eGFR 94 >=60 mL/min/1. 73m2 LAB CHEMISTRY METHOD 01/18/2025 6:50 PM EDT [facility] Comment:Calculation based on the Chronic Kidney Disease Epidemiology Collaboration (CKD-EPI) equation refit without adjustment for race. BUN/Creatinine Ratio 16.5 LAB CHEMISTRY METHOD 01/18/2025 6:50 PM EDT [facility] Calcium 9.5 8.5 - 10.5 mg/dL LAB CHEMISTRY METHOD 01/18/2025 6:50 PM EDT [facility] Blood Venous blood specimen / Unknown Venipuncture / Unknown 01/18/2025 4:06 PM EDT 01/18/2025 4:06 PM EDT Maximiliano Hua MD LAB BLOOD ORDERABLES Final Res ult Performing Organization Address City/[facility]/ZIP Co de Phone Number [facility] [address] [place] [address], * Hepatitis C antibody (07/15/2024 9:45 AM EST) [facility] Hepatitis C Antibody Negative Negative LAB CHEMISTRY METHOD 07/15/2024 5:17 PM EST [facility] Blood Venous blood specimen / Unknown Venipuncture / Unknown 07/15/2024 9:45 AM EST 07/15/2024 9:45 AM EST Venkata Cortes MD LAB BLOOD ORDERABLES Fin al Result [facility] [address] [place] [address], * Diabetes Foot Exam (03/25/2024) [facility] Diabetes: Annual Foot Exam Abstracted Bella Rowley MD HEALTH MAINTENANCE Final Result * Colonoscopy (08/17/2015) [facility] Colonoscopy Abstracted, no interpretation Anatomical Region [...] currently active code status orders. Care Teams Manager Human Capital Relationship Specialty Start Date End Date Horacio Mcduffie MD [address] [place] [phone] PCP - General Internal Medicine 09/12/20
--- OUTSIDE RECORDS SUMMARY | 2025-05-18 06:20 | XMS_ITS | Encounter Summary ---
Author Organization [facility] Address [address] [place] [address] Care Team Providers Care Wrecker Operator Name Role Phone Horacio Mcduffie MD Primary Care Provider [phone] Encounter Details Date Type Department Care Team (Late Contact Info) Description 03/18/2025 Results Follow-Up Adult Medicine - [place] [address] [place] [id number] Annalise Carvajal, ZENAIDA [address] [place] [address] Social History Tobacco Use Types Packs/Day Years [...] Encounters Date Type Department Care Team (Late Contact Info) Description 06/11/2025 1:[address] [facility] Scan [address] [place] [id number] 06/15/2025 8:00 AM EST Office Visit Pulmonology - [place] [address] [phone] Amanda Hemphill MD [address] [place] [phone] documented as of this encounter Visit Diagnoses Not on filedocumented in this encounter Care Teams Wrecker Operator Relationship Specialty Start Date End Date Horacio Mcduffie MD [address] [place] [address] PCP - General Internal Medicine 09/12/20 documented as of this encounter
--- OUTSIDE RECORDS SUMMARY | 2025-05-18 06:20 | XMS_ITS | Clinical Summary ---
Author Organization [employer] Address [address] [place] [address] Care Team Providers Care Dust Control Engineer Name Role Phone Prabhjot Mcduffie MD Primary Care Provider [phone] Allergies Active Allergy Reactions Criticality Noted Date [...] Description 04/27/2025 9:30 AM EST Office Visit [facility] OPTOMETRY [address] [place] [address] Renan Blanco, YASHIRA Combined forms of age-related [...] Relevant to Health Maintenance Results * COLONOSCOPY: [facility] (08/17/2015 12:00 AM EST) Anatomical Region Laterality Modality Endoscopy 08/17/2015 Narrative 08/17/2015 12:00 AM EST Refer to Fovea for result details Legacy Procedure: COLONOSCOPY: [facility] Procedure Note Provider, MD Bella - 10/04/2022 Refer to Fovea for result details Legacy Procedure: COLONOSCOPY: [facility] us Historical Provider ENDOSCOPY PROCEDURE ORDER [...] Insurance [employer] [place] [id number] [facility] DUAL PLAN [employer] Care Teams Dust Control Engineer Relationship Specialty Start Date End Date Prabhjot Mcduffie MD PCP - General Internal Medicine 05/28/22
== END 2025-05-18 06:16 | disposition home or self-care (01) ==
LOC: CF 06:15
PROVIDERS: Visit Provider Anesthesiology
DX: M54.14 Radiculopathy, thoracic region (principal)
CPT/HCPCS: 62321; J1100; J2003; Q9967

== ENCOUNTER 2025-05-18 07:40 | Outpatient (AMB) | payer MEDICARE, SELFPAY ==
[2025-05-18 07:45] VITALS: BP 162/68; PULSE 53; RESP 16; O2SAT 96; BMI 33.3
--- NOTE | 2025-05-18 07:45 | MHC.OFFVIS ---
Vital Signs 05/18/25 07:45 05/18/25 08:56 Height 5 ft 10 in Weight 232 lb BMI 33.3 BP 162/68 H 154/72 H Blood Pressure Location Lt brachial Lt brachial Position Sitting Sitting Respiration 16 16 Pulse 53 49 L Pulse Source Pulse Oximeter Pulse Oximeter Pulse Oximetry (%) 96 99 Oxygen Delivery Method Room Air Room Air Intake Visit Reasons: (R) T8-T9 Interlaminar BECCA Allergies morphine Allergy (Severe, Verified 04/01/25 09:19) projectile vomiting latex Allergy (Intermediate, Verified 04/01/25 09:19) Hives [facility] Medical History (Updated 05/05/25 @ 09:42 by Tez Li MD) Osteoarthritis GERD (gastroesophageal reflux disease) Mild emphysema Pulmonary nodule Renal cyst DUNCAN (nonalcoholic steatohepatitis) Barretts esophagus Sleep apnea Atrial fibrillation Diabetes HTN (hypertension) On anticoagulant therapy Elevated cholesterol Surgical History Hx of lumbar discectomy History of esophagogastroduodenoscopy (EGD) H/O colonoscopy History of bronchoscopy History of total bilateral knee replacement History of right shoulder replacement History of cardiac ablation for atrial fibrillation Hx of repair of rotator cuff Social History Are you a primary career based intervention coordinator to a significant other at home: No Do you presently have visiting nurse or other home services: No Patient Tobacco Use Status: Former Tobacco user Tobacco use type: Cigarette Years Smoked: 18 Physical Exam Vital Signs: Last Vital Signs Pulse 49 L 05/18/25 08:56 Resp 16 05/18/25 08:56 BP 154/72 H 05/18/25 08:56 Pulse Ox 99 05/18/25 08:56 Oxygen Delivery Method Room Air 05/18/25 08:56 BMI result Body Mass Index 33.3 Assessment & Plan Assessment & Plan (1) Radiculopathy, thoracic region: Code(s): M54.14 - Radiculopathy, thoracic region Category: Medical Plan T8-T9 interlaminar epidural steroid injection on the right. the risks, benefits and alternatives were discussed with the patient and informed consent was obtained, patient was placed in the prone position on the operating table. Time out was performed delineating correct site and side of the procedure , name and of the patient, patient participated in time out procedure. The entire back of the patient were prepped with ChloraPrep and draped with sterile self adhesive utility towels. C-arm was brought over the operating field and the sq picture of the T8 and T9 thoracic vertebra counted from the top T1 thoracic vertebra were demonstrated on the screen. The upper border of the right lamina was chosen as the initial target of the injection. The projection of the target to the skin was injected with small amount of lidocaine 2%. After that 22 gauge Touhy needle was inserted through the skin wheal and advanced to were the epidural space on anterior posterior and lateral views. When on the lateral view the tip of the needle passed through the interlaminar line injection of the Isovue M contrast was performed demonstrating epidurogram. After that 5 cc of treatment solution containing lidocaine 1% and dexamethasone 20 mg was performed into the needle. The patient tolerated the procedure well. The needle was removed and Band-Aid was applied. The patient reported immediate pain relief after the procedure. Orders: Orders FL guidance in treatment room Today M54.14 - Radiculopathy, thoracic region Coding Level of Care Code Procedure Only Diagnoses Radiculopathy, thoracic region M54.14
[2025-05-18 08:56] VITALS: BP 154/72; PULSE 49; RESP 16; O2SAT 99
== END 2025-05-18 08:57 | disposition home or self-care (01) ==
LOC: HO.PMCPRC 07:40
PROVIDERS: PCP Pediatrics; Visit Provider Anesthesiology
DX: M54.14 Radiculopathy, thoracic region (principal)
CPT/HCPCS: 62321